=== PATIENT | female | born 1995 | race Caucasian/White ===

== ENCOUNTER 2018-10-17 16:28 | Inpatient (IN) | payer OTHER, SELFPAY ==
[2018-10-17 16:29] VITALS: BP 159/100; PULSE 104; RESP 18; TEMP 36.6; O2SAT 98; BMI 23.2
[2018-10-17 16:37] VITALS: RESP 16
--- NOTE | 2018-10-17 16:45 | ED.VISSUMM ---
- ER Visit Summary Date of Service: 10/17/18 Chief Complaint: Miscarriage History of Present Illness: The patient is a [address] Naidu. 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 She reports her last menstrual. Was 5 to 6 weeks ago. States that she has heavy bleeding that began just prior to coming to the emergency department. She reports that she has a sac in her vagina. She denies any abdominal pain. She is unsure of her blood type. Physical Examination: Vitals: Stable. Afebrile. General: Well-nourished and well-developed. Head: Normocephalic atraumatic. Neck: Supple, no lymphadenopathy. No JVD. Nontender. Cardiovascular: Regular rate and rhythm. No murmurs. Respiratory: No respiratory distress. Clear to auscultation bilaterally. Abdominal: Soft, nontender, nondistended, normal bowel sounds. No guarding, rebound, or peritoneal signs. : Fluid sac at the introitus. Back: Nontender. Extremities: Nontender, no edema. Skin: Normal color, no rash. Neurologic: Alert and oriented ?3. Cranial nerves II through XII are intact. Normal strength and sensation. Psych: Normal affect. Test Results: Blood type is B+. Quantitative hCG is 11,315. Emergency Department Course and Treatment: Patient is resting comfortably. She refused pain or nausea medications. On exam I did attempt to lift up the fluid sac that was in the introitus to see if there is any tissue beneath this and it ruptured. Speculum was then inserted and there were membranes in the vaginal vault with mild bleeding. Treatment Plan: The patient was discussed with Dr. Tye Cavanaugh who is seen her in the emergency department and feels that she is approximately 20 weeks is going to take her over to labor and delivery for further treatment. Disposition: Admitted in stable condition. Impression: 1. Vaginal bleeding. 2. Second trimester . This note was generated with Speakapation software. It may contain incorrect words, spelling, and punctuation that were not noted in review of the chart prior to signing ED Disposition - Plan for ED Patient: Disposition: [facility]
--- NOTE | 2018-10-17 17:45 | ED.RN ---
dr. novak made aware of pt hcg.
[2018-10-17 17:48] LABS: hCG Titer Quant., Serum 11315 mIU/mL (1-3)
--- NOTE | 2018-10-17 18:49 | ED.RN ---
PT TRANSPORTED TO [facility] BY OB RN AND DR. MARIA. PT SKIN P/W/D, RESP EVEN AND UNLABORED, PT A&O X 3, NO DISTRESS NOTED.
[2018-10-17 18:57] VITALS: RESP 18
[2018-10-17 19:55] VITALS: BMI 23.9
--- NOTE | 2018-10-17 20:03 | HP.PCM_ITS ---
- Problem List (1) demise before 20 weeks with retention of fetus Status: Acute History Date of Admission: 10/17/18 Final DEVIKA: 04/07/19 - based on ultrasound today Final DEVIKA Source: US <20 weeks Gestational age: 15 Weeks and 4 Days History of this : This is a 23 year-old, , at 15w3d weeks gestational age based on ultrasound at bedside today. Fundal height is consistent with 18 to 20 weeks. Patient thought she had a period a month ago and thought she was only 5 to 6 weeks along at most and thought she may be miscarrying. She presented to the ER with bleeding and upon examination by the ER physician the amniotic sac was seen bulging at the introitus and it ruptured with examination. Allergies No Known Allergies Allergy (Verified 10/17/18 19:45) Home Medications: Home Medications NK 10/17/18 Smoking Status: Never smoker Alcohol: None Number of Fetus(es): 1 NST - FHR Rate Baby A Baseline: 0 History Past Pregnancies: Past Pregnancies Delivery Date Name GA/Weeks Outcome Route Weight Infant Gender Labor Length Anesthesia Delivery Location Provider FOB Labs: Mom's Labs & Results 10/17/18 10/17/18 10/17/18 16:50 16:50 16:50 WBC RBC Hgb Hct MCV MCH MCHC RDW Std Deviation RDW Coeff of Costa Plt Count MPV Immature Gran % (Auto) Neut % (Auto) Lymph % (Auto) Hunt % (Auto) Eos % (Auto) Baso % (Auto) Absolute Neuts (auto) Absolute Lymphs (auto) Nucleated RBC % Kleihauer-Betke F Hgb Hemoglobin A1c TSH HCG, Quant 21979 H Miscellaneous Test Blood Type TNP B POSITIVE Antibody Screen 10/17/18 10/17/18 10/17/18 19:50 19:50 19:50 WBC 11.8 H RBC 4.64 Hgb 14.6 Hct 41.8 MCV 90.1 MCH 31.5 MCHC 34.9 RDW Std Deviation 42.4 RDW Coeff of Costa 12.8 Plt Count 210 MPV 9.8 Immature Gran % (Auto) 0.300 Neut % (Auto) 83.5 H Lymph % (Auto) 10.7 L Hunt % (Auto) 5.1 Eos % (Auto) 0.1 Baso % (Auto) 0.3 Absolute Neuts (auto) 9.8 H Absolute Lymphs (auto) 1.26 Nucleated RBC % 0 Kleihauer-Betke F Hgb Hemoglobin A1c 4.4 TSH 0.89 HCG, Quant Miscellaneous Test Blood Type Antibody Screen 10/17/18 10/17/18 10/17/18 19:50 19:50 19:50 WBC RBC Hgb Hct MCV MCH MCHC RDW Std Deviation RDW Coeff of Costa Plt Count MPV Immature Gran % (Auto) Neut % (Auto) Lymph % (Auto) Hunt % (Auto) Eos % (Auto) Baso % (Auto) Absolute Neuts (auto) Absolute Lymphs (auto) Nucleated RBC % Kleihauer-Betke F Hgb Pending Hemoglobin A1c TSH HCG, Quant Miscellaneous Test Pending Blood Type B POSITIVE Antibody Screen NEGATIVE Course Did the patient receive No care? Labs HIV/AIDS Not done Other Lab Procedures/Results/ labs drawn on admission, has not had any Comments: care Current Obstetrical History Gestational Diabetes No Incompetent Cervix No Infertility No IUGR No Macrosomia No Hypertension/Pre-eclampsia No Placenta Previa/Abruption No PTL/PROM No Uterine anomaly No Oligohydramnios No Polyhydramnios No Multiple gestation No Past Medical History Asthma No Diabetes No Hypertension No Heart disease No Mitral valve prolapse No Neurologic/Seizure disorder/ No Migraines Kidney disease No Liver disease No Varicosities No Clotting disorders/Hx of DVT No Thyroid Dysfunction No Other medical diseases No Psychiatric disorders No Major trauma No Abnormal PAP smear No Sleep apnea No Mammogram in the last 2 years No Social History Marital Status: Alleged father Almas Hx Smoking No Smoking Status Never smoker How long have you used pt denies substances (years)? Expected Infant Delivery Method: Spontaneous Vaginal Review of Systems Constitutional: Denies: Fever, Malaise Eyes: Denies: Blurred vision, Vision Change HEENT: Denies: Head Aches, Visual Changes Cardiovascular: Denies: Chest Pain, Palpitations Respiratory: Denies: Cough, Shortness of Breath, Wheezing Gastrointestinal: Denies: Abdominal Pain, Diarrhea, Nausea, Vomiting Genitourinary: Denies: Dysuria, Hematuria Musculoskeletal: Denies: Joint Pain, Muscle pain Skin: Denies: Lesions, Rash Neurological: Denies: Blurred vision, Focal weakness, Headaches Psychiatric: Denies: Anxiety, Depression Endocrine: Denies: Heat/ Cold Intolerance Hematologic/ Lymphatic: Denies: Easy Bruising, Easy Bleeding Physical Exam Vitals: Vital Signs Temp Pulse Resp BP Pulse Ox 98 F 104 H 18 159/100 H 98 10/17/18 16:29 10/17/18 16:29 10/17/18 18:57 10/17/18 16:29 10/17/18 16:29 General: Alert, Cooperative, No apparent distress HEENT: Atraumatic, Normocephalic. Negative for: Thyromegaly, Lymphadenopathy Cardiovascular: Regular rate Lungs: Normal air movement Abdomen: Soft, Non Tender, Gravid Neurological: Deep Tendon Reflexes 2+/4 and Symmetrical, Neuro grossly intact. 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 Negative for: Vulvar lesions Estimated gestational size: Appropriate for gestational size Presentation: Cephalic Assessment/Plan All Active Problems demise before 20 weeks with retention of fetus (Acute) This is a 23 year-old, @ 15w3d weeks gestational age presents with demise and PPROM.. Admitted and plan induction of labor for demise. Hemoglobin A1c TSH [facility] sent for analysis and recommend antiphospholipid antibody panel. Patient declined genetic testing.
[2018-10-17 20:18] LABS: Absolute Lymphocyte Count 1.26 X10^3/uL (0.83-4.51); Absolute Neutrophil Count 9.8 X10^3/uL (2.0-7.7); Basophil# 0.03 X10^3/uL; Basophil% 0.3 % (0-1); Eosinophil# 0.01 X10^3/uL; Eosinophils% 0.1 % (0-5); Hematocrit 41.8 % (37-47); Hemoglobin 14.6 g/dL (12.0-15.0); Lymphocyte # 1.26 X10^3/ul (4.0); Lymphocyte % 10.7 % (19-41); Mean Corp Hgb Conc 34.9 g/dL (32-36); Mean Corpuscular Hgb 31.5 pg (27.0-32.0); Mean Corpuscular Volume 90.1 fL (81-99); Mean Platelet Vol. 9.8 fl (6.2-12.0); Monocyte% 5.1 % (0-10); NRBC Flagged by Analyzer 0 % (0-5); Neutrophil # 9.81 X10^3/uL (2.7-7.7); Neutrophil % 83.5 % (47-70); Platelet Count 210 K/mm3 (150-450); RBC Distribution Width CV 12.8 % (11.6-14.6); RBC Distribution Width SD 42.4 fl (35.1-43.9); Red Blood Count 4.64 M/mm3 (4.2-5.4); White Blood Count 11.8 K/mm3 (4.4-11.0)
[2018-10-17] MEDS: miSOPROStol 200 MCG Tablet 600 MCG VAGINAL (20:35)
[2018-10-17 20:40] LABS: Thyroid Stim Hormone (TSH) 0.89 uIU/mL (0.358-3.74)
[2018-10-17 20:52] LABS: Hemoglobin A1c 4.4 % (4.2-6.3)
[2018-10-18] MEDS: Lactated Ringers 1,000 ML 999 ML IV (00:05)
[2018-10-18] MEDS: miSOPROStol 200 MCG Tablet 1000 MCG RECTAL (01:01)
[2018-10-18] MEDS: Oxytocin 30 units/NS 500 ml 30 UNITS/500 ML IV.SOLN 334 UNITS IV (01:02)
--- NOTE | 2018-10-18 02:18 | OP.PCM_ITS ---
Problem List (1) demise before 20 weeks with retention of fetus Status: Acute Report of Operation Date of Procedure: 10/18/18 Pre-Operative Diagnosis: retained POC Post-Operative Diagnosis: saME Surgery/Procedure Performed:: Dilation and curettage for retained products Description of Surgical Findings:: 12 cm uterus, sharp curettage performed to remove products and bedside ul trasound revealed thin lining with no retained products at the end of the procedure Type of Anesthesia:: MAC Special Medications: Cytotec and Pitocin and Ancef Specimen's removed: Products of conception Drains: none Estimated Blood Loss (mL): 500 total Fluids Replaced: crystalloid Description of Procedure: Patient was taken the operating room and placed in the dorsolithotomy position and prepped and draped in normal sterile fashion. Anterior lip of the cervix was grasped with a ring forcep and uterine sound inserted to 12 cm. A suction machine was unable to have the correct instrumentation for use during the initi al portion of the procedure and therefore sharp curettage was performed and tissue removed. Bedside ultrasound was performed and no further retained products were seen and bleeding was minimal. All instruments were removed from the vagina no suction was required. Patient was taken to recovery in stable condition Grafts/Implants Used: none - Complications none - Admit VTE Documentation VTE Present on Admission: No VTE Mechan Device Prophylaxis: SCD's Vaginal Delivery Maternal Presentation: Medically Indicated Induction iol demise 15 weeks with cytotec Method of Induction: Cytotec Medical Reason for Induction: Premature Rupture of Membranes, - - suspected demise prior to delivery Final DEVIKA: 04/07/19 Gestational age: 15 Weeks and 4 Days Date of Procedure: 10/17/18 Pre-Operative Diagnosis: pprom demise Post-Operative Diagnosis: same and reatined POC Surgery/ Procedure Performed: Spontaneous Vaginal Delivery Type of Anesthesia: None Description of Procedure: Patient states she felt some vaginal pressure and spontaneous delivery and therefore physician was called to evaluate at bedside. Upon evaluation fetus had completely delivered and was examined and noted to have low set ears with suspected genetic abnormality but no other gross abnormalities were seen. Fetus was male. Pelvic exam and massage produced spontaneous delivery of most of the placenta however some retained products were suspected and due to patient discomfort she was unable to be examined and placental fragments unable to be removed. Bedside ultrasound confirmed some retained products of conception. It was recommended to proceed with a D&C in the operating room. Placental Delivery Description: Spontaneous, Retained Placenta Disposition: [facility] Cord Entanglement: None Estimated Blood Loss: 500 Infant A gender: Male Episiotomy Description: None Laceration: None Medications given after delivery: IV Pitocin, - - Cytotec Complications: - - Retained products of conception Multi Select Codes - Urinary/Genital Urinary/Genital CPT Codes: Other Procedure See Report - 77537 IOL under 22 week, w/wo d and c
--- NOTE | 2018-10-18 02:28 | DCINST_ITS ---
Discharge Diet: No Restrictions Discharge Activity: Return to Normal Activity, May not drive while taking narcotic pain medications., May Shower May resume sexual activity in: 4-6 weeks Call your doctor if your incision/area has: Continuous Slow Oozing, Sudden Increased Bleeding, Increased Pain/ Swelling, Increased Redness, Foul Smelling Discharge Additional Instructions: If you experience any of the following, contact your healthcare provider. * Bleeding that soaks a pad every hour for 2 hours * Fever 100.4 or higher * Unrelieved incision or abdominal pain * Swelling, redness, discharge or bleeding from your incision or episiotomy site * Your incision begins to separate * Problems urinating (including inability to urinate or burning while urinating). * Visual changes * Severe headache * Flu-like symptoms * Pain or redness in one of both of your breasts * Pain, warmth, tenderness or swelling in your legs, especially the calf area * Frequent nausea and vomiting * Symptoms of depression or anxiety If you experience any of the following, call 911 or go to the nearest Emergency Room. * Chest pain * Problems breathing * Seizure activity * Partial or complete paralysis of a body part, slurred speech, weakness or drooping of the face, or a sudden inability to walk or hold your balance Allergies/Adverse Reactions: Allergies No Known Allergies Allergy (Verified 10/17/18 19:45) Medications to take at Discharge NK 10/17/18 Please Follow Up With: Amanda Funk MD - [phone] When: Call to make an appointment with your doctor in 6 weeks. If you had elevated Blood pressure or 4th degree laceration you will need to be seen in 2 weeks. Primary Care Physician: NOT,DEFINED [NON-STAFF] - Test Results: Test results from this visit will be discussed in further detail at your follow- up appointment, if applicable.
--- NOTE | 2018-10-18 02:28 | PCM.DCVAG ---
Discharge Diet: No Restrictions Discharge Activity: Return to Normal Activity, May not drive while taking narcotic pain medications., May Shower May resume sexual activity in: 4-6 weeks Call your doctor if your incision/area has: Continuous Slow Oozing, Sudden Increased Bleeding, Increased Pain/ Swelling, Increased Redness, Foul Smelling Discharge Additional Instructions: If you experience any of the following, contact your healthcare provider. Bleeding that soaks a pad every hour for 2 hours Fever 100.4 or higher Unrelieved incision or abdominal pain Swelling, redness, discharge or bleeding from your incision or episiotomy site Your incision begins to separate Problems urinating (including inability to urinate or burning while urinating). Visual changes Severe headache Flu-like symptoms Pain or redness in one of both of your breasts Pain, warmth, tenderness or swelling in your legs, especially the calf area Frequent nausea and vomiting Symptoms of depression or anxiety If you experience any of the following, call 911 or go to the nearest Emergency Room. Chest pain Problems breathing Seizure activity Partial or complete paralysis of a body part, slurred speech, weakness or drooping of the face, or a sudden inability to walk or hold your balance Allergies/Adverse Reactions: Allergies No Known Allergies Allergy (Verified 10/17/18 19:45) Medications to take at Discharge NK 10/17/18 Please Follow Up With: Amanda Funk MD - [phone] When: Call to make an appointment with your doctor in 6 weeks. If you had elevated Blood pressure or 4th degree laceration you will need to be seen in 2 weeks. Primary Care Physician: NOT,DEFINED [NON-STAFF] - Test Results: Test results from this visit will be discussed in further detail at your follow-up appointment, if applicable.
--- NOTE | 2018-10-18 02:29 | PLAC_PTH ---
PATIENT: BRIANA QUIROZ LOC: [facility] U#:[id number] AGE/SX: 23/F ROOM: WP021 RE10/17/[address]: Dr. Amanda Funk MD : 1995 BED: 1 DIS: 10/18/2018 SPEC #: [id number] RECD: 10/18/18 07:55 STATUS: JANETTE REQ #: [id number] COLT: 10/18/18 02:[address]: Amanda Funk DEPT: SURGICAL PATHOLOGY RECD BY: Adrian Solano ENTERED: 10/20/18 13:02 SP TYPE: PLACENTA OTHR DR: No Primary Care Phys Tissues: A - Placenta, NOS B - Fetus, NOS Procedures: Surgery Specimen Level V Comments: Patients name initially Briana Quiroz and then changed by registration to Briana Jonah to match her state ID per registration Mary 10/20/18 1545 clc HEADER OPERATION: Labor and delivery PRE-OP DIAGNOSIS: Vaginal delivery, demise TISSUE SUBMITTED: A. Placenta, B. demise, 15-16 weeks MICROSCOPIC DIAGNOSIS A. Placenta, immature placenta (50 grams): Placental disc - immature villi, increased intraparenchymal microcalcifications , fibrin plaques, focal Jermoy-Leonel change and mild acute and chronic deciduitis. Umbilical cord - trivascular with no inflammation. Membranes - focal microcalcification. B. Fetus (15-16 week gestation): Internal organs with autolytic changes. AM:samy 10/21/18 COMMENT This case was reviewed and diagnosis discussed with Dr. Funk on 10/29/18 at 10:00 a.m. MICROSCOPIC DESCRIPTION Slides are reviewed. GROSS DESCRIPTION A. Received is one container labeled with the patient's name and not further designated. The specimen consists of a small placenta with membrane and detached pieces of umbilical cord. The pieces of umbilical cord measures 2 and 3 cm in length and 0.5 cm in diameter. A portion of membrane is attached to one of the pieces of the nuchal cord and is portillo-green and is unremarkable. A Small portion of membrane is also attached to the placenta. The placenta is markedly disrupted and triangular in shape and measures 9 x 8 x 2 cm and weighs 50 grams. It is portillo and unremarkable. A focal area of blood clot is noted on the surface. Obvious attachment of the nuchal cord could not be identified. Peripheral portion of the placenta shows presence of blood clot. Sections do not reveal any mass lesion. Respiratory Coordinator sections are submitted in 5 cassettes as follows: 1 - membrane; 2 - nuchal cord to be sectioned at the time of embedding; 3 - 5 - placenta. Cassette 3 contains a separate blood clot and also blood clot area and portion of the placenta. B. Received is one container labeled with the patient's name and not further designated. The specimen consists of male fetus markedly macerated weighing 79.6 grams. The fetus measures 12.5 from crown to rump and 18 cm from crown to heel. A 6 cm segment of nuchal cord is also attached to the fetus. No external anomalies are noted. Anus appeared patent. The abdominal organs appear to be well partitioned. The diaphragm appearing intact. Most of the abdominal organs are markedly macerated. The kidneys appear to be well partitioned in the abdomen. Respiratory Coordinator sections are submitted in 4 cassettes as follows: 1 - umbilical cord. 2 - Thoracic organs. 3&4 - Abdominal organs. 4 contains the spleen and kidney. /EUGENE:samy 10/20/18 TC: 2 CPT: 24791 x2
[2018-10-18 03:45] VITALS: BP 116/66; PULSE 93; RESP 16; TEMP 37.3
[2018-10-18] MEDS: 0.9% Saline Lock 10 ML Syringe IV (03:45)
--- NOTE | 2018-10-18 05:25 | NURSING ---
0423 total EBL charted under OP Record
--- NOTE | 2018-10-18 05:30 | NURSING ---
0530 Heide does not want to hold baby and states measurements can be done outside of the room. Does not wish for baby to be brought back to room. Would like baby to be disposed of by hospital lab. Form will need signed since Heide and have been sleeping.
[2018-10-18 07:54] LABS: Pathology Specimen OB SEE PATHOLOGY REPORT
[2018-10-18 08:59] VITALS: BP 116/70; PULSE 75; RESP 16; TEMP 36.7; O2SAT 99
--- NOTE | 2018-10-18 10:20 | NURSING ---
education complete. Patient and verbalize understanding. and follow up telephone number provided to patient.
[2018-10-18 10:47] LABS: Kleihauer-Betke Negative
== END 2018-10-18 10:30 | disposition home or self-care (01) | DRG 770 ==
LOC: ED 17:39 → WP 19:02
PROVIDERS: Admitting Provider Obstetrics & Gynecology; Emergency Provider Emergency Medicine; Referring Provider Obstetrics & Gynecology; Visit Provider Obstetrics & Gynecology
DX: O02.1 Missed abortion (principal); O73.0 Retained placenta without hemorrhage; Z3A.15 15 weeks gestation of pregnancy
CPT/HCPCS: 36415; 76815; 83036; 84443; 84702; 85025; 85460; 86850; 86900; 86901; 88307; 88309; 99218; 99281; J7120; A4216; G0378

== ENCOUNTER → 2019-04-01 12:16 | Outpatient (CLI) | payer OTHER, SELFPAY ==
[2019-04-01 11:39] VITALS: BMI 23.9
[2019-04-01 13:00] LABS: Absolute Lymphocyte Count 1.34 X10^3/uL (0.83-4.51); Absolute Neutrophil Count 7.8 X10^3/uL (2.0-7.7); Basophil# 0.03 X10^3/uL; Basophil% 0.3 % (0-1); Eosinophil# 0.06 X10^3/uL; Eosinophils% 0.6 % (0-5); Hemoglobin 14.4 g/dL (12.0-15.0); Lymphocyte # 1.34 X10^3/ul (4.0); Lymphocyte % 13.5 % (19-41); Mean Corp Hgb Conc 34.3 g/dL (32-36); Mean Corpuscular Hgb 30.8 pg (27.0-32.0); Mean Corpuscular Volume 89.9 fL (81-99); Mean Platelet Vol. 10.1 fl (6.2-12.0); Monocyte# 0.67 X10^3/uL; Monocyte% 6.8 % (0-10); NRBC Flagged by Analyzer 0 % (0-5); Neutrophil % 78.6 % (47-70); Platelet Count 214 K/mm3 (150-450); RBC Distribution Width CV 13.3 % (11.6-14.6); RBC Distribution Width SD 43.9 fl (35.1-43.9); Red Blood Count 4.67 M/mm3 (4.2-5.4); White Blood Count 9.9 K/mm3 (4.4-11.0)
[2019-04-01 13:41] LABS: Rubella IgG 82.8 IU/mL
[2019-04-06 17:54] LABS: HPV Reflexed? NOT INDICATED
== END ==
PROVIDERS: PCP Family Medicine; Referring Provider Obstetrics & Gynecology; Visit Provider Obstetrics & Gynecology
DX: Z34.90 Encounter for supervision of normal pregnancy, unspecified, unspecified trimester (principal)
CPT/HCPCS: 36415; 85025; 86762; 86850; 86900; 86901; 87086; 87088; 88175; G0145

== ENCOUNTER → 2019-05-19 13:08 | Outpatient (CLI) | payer OTHER, SELFPAY ==
[2019-04-17 08:57] VITALS: BMI 23.9
[2019-05-15 08:50] VITALS: BMI 23.9
--- NOTE | 2019-05-19 13:12 | US_ITS ---
STUDY: SECOND AND THIRD TRIMESTER OBSTETRICAL ULTRASOUND - LIMITED REASON FOR EXAM: Female, 24 years old CERVICAL LENGTH CHECK PER JERRI AT DR. TODD OFFICE -- HX OF D and amp;C DUE TO MISCARRIAGE 10/18/18 LMP: February 07, 2019. PRIOR ULTRASOUND: None. TECHNIQUE: Transvaginal TECHNICAL QUALITY: Adequate. FINDINGS: There is a single intrauterine fetus. The fetus is in a breech presentation. There is demonstrated cardiac activity with a heart rate of 157 bpm. There is a normal amniotic fluid volume. The largest amniotic fluid pocket measures 2.8 cm x 2.1 cm. The placenta is posterior and low lying but not previa in location. The tip of the placenta is 0.85 cm from the cervical os. A placental silverman is seen along its inferior edge. There are Grade 1 placental changes. The cervix measures 4.5 cm in length. BIOMETRY: BPD: 2.88 cm: 15 weeks, 1 days HC: 10.75 cm: 15 weeks, 0 days AC: 8.54 cm: 14 weeks, 5 days FL: 1.55 cm: 14 weeks, 4 days Age by LMP: 14 weeks, 3 days. DEVIKA by LMP: November 14, 2019. age by current US: 14 weeks, 5 days. DEVIKA by current US: November 12, 2019. Estimated weight: 106 grams, +/- 16 grams, 67 percentile. US/OB Limited With Biometrics IMPRESSION: Single live uterine gestation with a mean gestational age of 14 weeks and 5 days. Low-lying posterior placenta. The tip of the placenta is at 0.85 cm proximal to the cervical os. Electronically Signed: Simon Dan, at 15:00 EDT , Service support ,
== END ==
PROVIDERS: PCP Family Medicine; Referring Provider Obstetrics & Gynecology; Visit Provider Obstetrics & Gynecology
DX: O09.90 Supervision of high risk pregnancy, unspecified, unspecified trimester (principal)
CPT/HCPCS: 76816

== ENCOUNTER → 2019-06-23 08:13 | Outpatient (CLI) | payer OTHER, SELFPAY ==
[2019-05-15 08:50] VITALS: BMI 23.9
--- NOTE | 2019-06-23 08:17 | US_ITS ---
STUDY: SECOND AND THIRD TRIMESTER OBSTETRICAL ULTRASOUND REASON FOR EXAM: Female, 24 years old ANATOMY -- HX OF LOWLYING PLACENTA SEEN ON 05/19/19 US -- HX OF D and amp;C DUE TO MISCARRIAGE 10/18/18 LMP: February 07, 2019. TECHNIQUE: Transabdominal TECHNICAL QUALITY: Adequate. PRIOR ULTRASOUND: Comparison is made with prior study dated May 19, 2019. FINDINGS: There is a single intrauterine fetus. The fetus is in a cephalic presentation. There is demonstrated cardiac activity with a heart rate of 143 bpm. There is a normal amniotic fluid volume. The largest amniotic fluid pocket measures 3.2 cm x 5.5 cm. The amniotic fluid index (JOSE) is 10.62 cm. The placenta is posterior in location and is not low lying. There are Grade 1 placental changes. The cervix measures 3.1 cm in length. Findings suggestive of a clot within the cervix. The adnexal regions are not visualized. BIOMETRY: BPD: 4.64 cm: 20 weeks, 0 days HC: 17.66 cm: 20 weeks, 1 days AC: 15.27 cm: 20 weeks, 3 days FL: 3.12 cm: 19 weeks, 4 days CI: 76.2% FL/BPD: 67.3% FL/HC: FL/AC: 20.4% HC/AC: 1.16 age by current US: 20 weeks, 1 days. DEVIKA by current US: January 09, 2020. Estimated weight: 333 grams, +/- 49 grams, 87 %. age by prior US: 19 weeks, 5 days. DEVIKA by prior US: November 12, 2019. Age by LMP: 19 weeks, 3 days. DEVIKA by LMP: November 14, 2019. ANATOMY: Gender: Male Cranium: Normal lateral ventricles. Normal choroid plexus. Normal cerebellum. Normal cisterna magna. Normal face, nose and lips. Chest: Normal 4-chamber heart. Abdomen/Pelvis: Normal diaphragm. Normal stomach. Normal abdominal wall. Normal cord insertion. Normal 3 vessel cord. Normal kidneys. Normal bladder. Spine: Normal cervical spine. Normal thoracic spine. Normal lumbar spine. Normal sacrum. Extremities: Normal bilateral upper extremities. Normal bilateral lower extremities. US/OB Anatomy Scan IMPRESSION: Single live intrauterine gestation with a mean gestational age of 19 weeks and 5 days. The measurements obtained today fall within the normal expected range. Electronically Signed: Simon Dan, at 13:36 EDT , Service support ,
== END ==
PROVIDERS: PCP Family Medicine; Referring Provider Obstetrics & Gynecology; Visit Provider Obstetrics & Gynecology
DX: O09.90 Supervision of high risk pregnancy, unspecified, unspecified trimester (principal); O44.42 Low lying placenta NOS or without hemorrhage, second trimester; Z3A.00 Weeks of gestation of pregnancy not specified
CPT/HCPCS: 76805

== ENCOUNTER 2019-07-14 11:55 | Inpatient (IN) | payer SELFPAY ==
[2019-07-10 08:07] VITALS: BMI 23.9
[2019-07-14] VITALS (42 sets, daily range): BP systolic 94–123; BP diastolic 54–71; PULSE 86–105; RESP 16–18; TEMP 36.6–37.4; O2SAT 97–100; BMI 25.0
--- NOTE | 2019-07-14 10:56 | US_ITS ---
STUDY: SECOND AND THIRD TRIMESTER OBSTETRICAL ULTRASOUND - LIMITED REASON FOR EXAM: Female, 24 years old SPOTTING SINCE SATURDAY MORNING LMP: PRIOR ULTRASOUND: None. TECHNIQUE: Transabdominal and Transvaginal TECHNICAL QUALITY: Adequate. FINDINGS: There is a single intrauterine fetus. The fetus is in a breech presentation. There is demonstrated cardiac activity with a heart rate of 161 bpm. There is a normal amniotic fluid volume. The largest amniotic fluid pocket measures 6.7 cm. The amniotic fluid index (JOSE) is 10 cm. The placenta is posterior and low lying but not previa in location. There are Grade 0 placental changes. The cervix measures 2 cm in length. The cervix is dehiscent. Diameter of the cervical os measures 2.6 cm. BIOMETRY: Age by LMP: 22 weeks, 3 days. DEVIKA by LMP: 11/14/2019. age by prior US: 23 weeks, 1 days. DEVIKA by prior US: 11/09/2019. US/OB Limited (No Biometrics) IMPRESSION: The fetus is in a breech presentation. There is demonstrated cardiac activity with a heart rate of 161 bpm. There is a normal amniotic fluid volume. The largest amniotic fluid pocket measures 6.7 cm. The amniotic fluid index (JOSE) is 10 cm. The placenta is posterior and low lying but not previa in location. There are Grade 0 placental changes. The cervix measures 2 cm in length. The cervix is dehiscent. Diameter of the cervical os measures 2.6 cm. Electronically Signed: Fisher Nikolay, at 12:27 EDT Tel , Service support ,
[2019-07-14] MEDS: Lactated Ringers 1,000 ML 999 ML IV ×2 (12:00→12:10)
[2019-07-14] MEDS: Magnesium Sulfate 4gm/100mL 4 GM/100 ML IV.SOLN. IV (12:10)
[2019-07-14] MEDS: Magnesium Sulfate 4gm/100mL 2 GM/50 ML IV.SOLN. IV (12:25)
[2019-07-14 12:34] LABS: Bacteria 0 SEEN /hpf (None Seen); Mucous, Urine 0 SEEN /hpf (<or=2+); Red Blood Cells-Urine 0 SEEN /hpf (0-5); Squamous Epithelial Cells - UA 0 SEEN /hpf (5-10); White Blood Cells 0 SEEN /hpf (0-5)
[2019-07-14 12:44] LABS: Color, Urine Yellow (Yellow); Glucose, Dipstick Normal (Normal); Ketone-Dipstick Negative (Negative); Leukocyte Esterase-Dipstick Negative /ul (Negative); Nitrite-Dipstick Negative (Negative); Occult Blood-Urine Negative /ul (Negative); Protein-Dipstick Negative (Negative); Urine Bilirubin Dipstick Negative (Negative); Urine Clarity Clear (Clear); Urine Urobilinogen Normal (Normal)
[2019-07-14 12:45] LABS: Absolute Lymphocyte Count 1.15 X10^3/uL (0.83-4.51); Absolute Neutrophil Count 10.9 X10^3/uL (2.0-7.7); Basophil# 0.02 X10^3/uL; Basophil% 0.2 % (0-1); Eosinophil# 0.04 X10^3/uL; Eosinophils% 0.3 % (0-5); Hematocrit 39.9 % (37-47); Hemoglobin 13.6 g/dL (12.0-15.0); Lymphocyte # 1.15 X10^3/ul (4.0); Mean Corp Hgb Conc 34.1 g/dL (32-36); Mean Corpuscular Hgb 31.1 pg (27.0-32.0); Mean Corpuscular Volume 91.1 fL (81-99); Mean Platelet Vol. 9.5 fl (6.2-12.0); Monocyte# 0.68 X10^3/uL; Monocyte% 5.3 % (0-10); NRBC Flagged by Analyzer 0 % (0-5); Neutrophil # 10.85 X10^3/uL (2.7-7.7); Neutrophil % 84.7 % (47-70); Platelet Count 246 K/mm3 (150-450); RBC Distribution Width CV 13.8 % (11.6-14.6); RBC Distribution Width SD 45.9 fl (35.1-43.9); Red Blood Count 4.38 M/mm3 (4.2-5.4); White Blood Count 12.8 K/mm3 (4.4-11.0)
--- NOTE | 2019-07-14 12:59 | OB.TRI.HP_ITS ---
- Problem List (1) Cervical insufficiency during in second trimester, antepartum Status: Acute (2) Status: Acute Qualifiers: Weeks of gestation: 21 weeks Qualified Code(s): Z3A.21 - 21 weeks gestation of Comment: nipt, carrier, and ntd screening declined. (3) Supervision of high risk , antepartum Status: Acute Comment: PRR (declined STD testing) DEVIKA 11/14/19 Jose (4) demise before 20 weeks with retention of fetus Status: Acute Comment: cervical length screening at 16 weeks. declines MFM consult. APL testing negative. declined additional ultrasounds. History of Present Illness Date of Service: 07/14/19 Was patient seen by the physician?: Yes Reason For Visit: BLEEDING Final DEVIKA: 11/14/19 Final DEVIKA Source: US <20 weeks Gestational age: 22 Weeks and 3 Days History of Present Illness: 24-year-old G2, P0 at 22 weeks 3 days presents with vaginal bleeding x3 days. She was found to have cervical dilation with prolapsing membranes into the vagina but intact gestational sac. She denies any contractions or abdominal pain. She denies any recent infection symptoms. She does feel some vaginal pressure. Allergies No Known Allergies Allergy (Verified 07/14/19 10:15) - Pertinent Past Medical History Medical History: Past Medical History (Last Reviewed 07/10/19 @ 08:02 by Flores Winter) demise demise at 15w Laboratory Studies: Laboratory Tests 07/14/19 07/14/19 07/14/19 Range/Units 12:00 12:00 12:00 WBC 12.8 H (4.4-11.0) K/mm3 RBC 4.38 (4.2-5.4) M/mm3 Hgb 13.6 (12.0-15.0) g/dL Hct 39.9 (37-47) % MCV 91.1 (81-99) fL MCH 31.1 (27.0-32.0) pg MCHC 34.1 (32-36) g/dL RDW Std Deviation 45.9 H (35.1-43.9) fl RDW Coeff of Costa 13.8 (11.6-14.6) % Plt Count 246 (150-450) K/mm3 MPV 9.5 (6.2-12.0) fl Immature Gran % (Auto) 0.500 (0.0-0.9) % Neut % (Auto) 84.7 H (47-70) % Lymph % (Auto) 9.0 L (19-41) % [place] % (Auto) 5.3 (0-10) % Eos % (Auto) 0.3 (0-5) % Baso % (Auto) 0.2 (0-1) % Absolute Neuts (auto) 10.9 H (2.0-7.7) X10^3/uL Absolute Lymphs (auto) 1.15 (0.83-4.51) X10^3/uL Nucleated RBC % 0 (0-5) % Urine Color Yellow (Yellow) Urine Clarity Clear (Clear) Urine pH 7.0 (5.0 - 8.0) Ur Specific [place] 1.010 (1.002-1.030) Urine Protein Negative (Negative) mg/dl Urine Glucose (UA) Normal (Normal) mg/dl Urine Ketones Negative (Negative) mg/dl Urine Occult Blood Negative (Negative) /ul Urine Nitrite Negative (Negative) Urine Bilirubin Negative (Negative) mg/dL Urine Urobilinogen Normal (Normal) mg/dl Ur Leukocyte Esterase Negative (Negative) /ul Urine RBC 0 SEEN (0-5) /hpf Urine WBC 0 SEEN (0-5) /hpf Ur Squamous Epith Cells 0 SEEN (5-10) /hpf Urine Bacteria 0 SEEN (None Seen) /hpf Urine Mucus 0 SEEN (<or=2+) /hpf Ur Drug Screen Comment Review of Systems Constitutional: Denies: Fever, Malaise Eyes: Denies: Blurred vision, Vision Change HEENT: Denies: Head Aches, Visual Changes Cardiovascular: Denies: Chest Pain, Palpitations Respiratory: Denies: Cough, Shortness of Breath, Wheezing Gastrointestinal: Denies: Abdominal Pain, Diarrhea, Nausea, Vomiting Genitourinary: Denies: Dysuria, Hematuria Gynecological: Reports: Vaginal bleeding Musculoskeletal: Denies: Joint Pain, Muscle pain Skin: Denies: Lesions, Rash Neurological: Denies: Blurred vision, Focal weakness, Headaches Psychiatric: Denies: Anxiety, Depression Endocrine: Denies: Heat/ Cold Intolerance Hematologic/ Lymphatic: Denies: Easy Bruising, Easy Bleeding Physical Exam Vitals: Vital Signs Temp Pulse Resp BP Pulse Ox 98.3 F 100 18 121/59 H 98 07/14/19 12:25 07/14/19 12:57 07/14/19 12:25 07/14/19 12:51 07/14/19 12:57 General: Alert, Cooperative, No apparent distress HEENT: Atraumatic, Normocephalic. Negative for: Thyromegaly, Lymphadenopathy Cardiovascular: Regular rate Lungs: Normal air movement Abdomen: Soft, Gravid, - - Mild tender suprapubic Neurological: Deep Tendon Reflexes 2+/4 and Symmetrical, Neuro grossly intact. 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 Negative for: Vulvar lesions Estimated gestational size: Appropriate for gestational size Presentation: Cephalic Cervix Dilation (cm): 3.5 Station: 2 Effacement (%): 70 NST - FHR Rate Baby A Baseline: 150 Variability:: Moderate Accelerations:: None Decelerations:: None NST Reactive:: Appropriate for gestational age Uterine Activity:: No regular contractions Impression/Plan 24-year-old G2, P0 at 22 weeks and 3 days with cervical insufficiency. Called and discussed case with maternal- medicine and recommend Trendelenburg, ampicillin and azithromycin, magnesium and sulindac. No Celestone indicated at this gestational age yet. No resuscitation encouraged at this gestational age. Monitor for signs or symptoms of infection or labor. Expectant management and if membranes reduce back into the uterus consider cerclage placement at a tertiary care facility. We will hold off on transport at this time.
[2019-07-14] MEDS: Magnesium Sulfate 20 GM/500 ML BAG IV ×2 (13:00→22:06)
[2019-07-14 13:09] LABS: Amphetamine Urine VISTA NEGATIVE (<1000 ng/mL); Barbiturate Urine VISTA NEGATIVE (< 200 ng/mL); Benzodiazepine Urine VISTA NEGATIVE (< 200 ng/mL); Cocaine Urine VISTA NEGATIVE (< 300 ng/mL); Ecstacy Urine VISTA NEGATIVE (< 500 ng/mL); Methadone Urine VISTA NEGATIVE (< 300 ng/mL); PCP Urine VISTA NEGATIVE (< 25 ng/mL); THC Urine VISTA NEGATIVE (< 50 ng/mL); Vista UDS pH Range 6
[2019-07-14 13:44] LABS: HIV - WCH Non-Reactive (Nonreactive); Hepatitis B Surface Antigen Non-Reactive (Nonreactive); Hepatitis C Antibody Non-Reactive (Nonreactive)
[2019-07-14] MEDS: Lactated Ringers 1,000 ML 75 ML IV (14:16)
[2019-07-14] MEDS: Indomethacin 25 MG Capsule PO (15:14)
[2019-07-14] MEDS: Acetaminophen 500 MG Tablet 1000 MG PO ×2 (15:15→20:16)
[2019-07-14] MEDS: Zolpidem Tartrate 5 MG Tablet PO (22:34)
[2019-07-15] VITALS (17 sets, daily range): BP systolic 100–116; BP diastolic 60–72; PULSE 79–165; RESP 16; TEMP 36.3–37.2; O2SAT 98–100
[2019-07-15 01:39] LABS: Absolute Lymphocyte Count 0.63 X10^3/uL (0.83-4.51); Absolute Neutrophil Count 13.4 X10^3/uL (2.0-7.7); Basophil# 0.02 X10^3/uL; Basophil% 0.1 % (0-1); Eosinophil# 0.01 X10^3/uL; Eosinophils% 0.1 % (0-5); Hematocrit 38.2 % (37-47); Hemoglobin 13.1 g/dL (12.0-15.0); Lymphocyte # 0.63 X10^3/ul (4.0); Lymphocyte % 4.2 % (19-41); Mean Corp Hgb Conc 34.3 g/dL (32-36); Mean Corpuscular Hgb 30.9 pg (27.0-32.0); Mean Corpuscular Volume 90.1 fL (81-99); Mean Platelet Vol. 9.4 fl (6.2-12.0); Monocyte# 0.81 X10^3/uL; Monocyte% 5.4 % (0-10); NRBC Flagged by Analyzer 0 % (0-5); Neutrophil # 13.43 X10^3/uL (2.7-7.7); Neutrophil % 89.8 % (47-70); Platelet Count 258 K/mm3 (150-450); RBC Distribution Width CV 13.4 % (11.6-14.6); RBC Distribution Width SD 44.1 fl (35.1-43.9); Red Blood Count 4.24 M/mm3 (4.2-5.4)
[2019-07-15] MEDS: Lactated Ringers 500 ML 999 ML IV (01:40)
[2019-07-15] MEDS: fentaNYL 100 MCG/2 ML Ampul 25 MCG IV ×3 (01:43→02:06)
[2019-07-15] MEDS: 0.9% Saline Lock 10 ML Syringe IV ×3 (01:44→02:17)
[2019-07-15] MEDS: fentaNYL 100 MCG/2 ML Ampul 50 MCG IV (02:16)
[2019-07-15] MEDS: Oxytocin 30 units/NS 500 ml 30 UNITS/500 ML IV.SOLN 334 UNITS IV (02:18)
[2019-07-15 02:50] LABS: Fibrinogen 519 mg/dl (203-444)
--- NOTE | 2019-07-15 02:53 | OP.PCM_ITS ---
Problem List (1) Cervical insufficiency during in second trimester, antepartum Status: Acute (2) Status: Acute Qualifiers: Weeks of gestation: 21 weeks Qualified Code(s): Z3A.21 - 21 weeks gestation of Comment: nipt, carrier, and ntd screening declined. (3) Supervision of high risk , antepartum Status: Acute Comment: PRR (declined STD testing) DEVIKA 11/14/19 Jose (4) demise before 20 weeks with retention of fetus Status: Acute Comment: cervical length screening at 16 weeks. declines MFM consult. APL testing negative. declined additional ultrasounds. Report of Operation Date of Procedure: 07/15/19 Vaginal Delivery Maternal Presentation: Active Labor 24-year-old G2, P0 at 22 weeks 4 days presented with vaginal bleeding and painless cervical dilation. She was noted to have prolapsing membranes and parts through the cervix into the vagina and cervical dilation of 3 to 4 cm. She had a history of a 15-week demise and had a normal cervical length on ultrasound 2 weeks ago. Patient had began bleeding on Saturday and presented for evaluation on Saturday. Patient was placed in Trendelenburg and given Indocin and magnesium sulfate. Patient developed contractions and abdominal pain but remained afebrile. White count increased to 15,000 with a normal fibrinogen level. Patient was examined and noted to have the majority the infant present in the vagina with gestational sac intact and cervix completely dilated. Medical Reason for Induction: - - Cervical insufficiency Amniotic Membrane Rupture Type: Artificial Amniotic Fluid Description: Clear Final DEVIKA: 11/14/19 Gestational age: 22 Weeks and 4 Days Surgery/ Procedure Performed: Spontaneous Vaginal Delivery Type of Anesthesia: Epidural Description of Procedure: Patient was completely dilated and the gestational sac was present in the vagina. Patient began pushing and membranes were ruptured. Both feet were delivered and the was delivered up to the level of the umbilicus. No pulse was felt at the umbilicus at the time of delivery. Arms were swept anteriorly and delivered. There was delayed delivery of the head due to the cer vix decreasing in size and entrapping part of the head. With manual reduction of the cervix and expectant management the rest of the infant delivered without complication. Nuchal cord x1 was noted. Again the was evaluated and no pulse was palpated. Perineum was intact. Placenta delivered with gentle traction on the cord and immediately following was noted to be intact with no gross abnormalities. EBL 200 cc Presentation: Footling Breech Placental Delivery Description: Spontaneous Placenta Disposition: [facility] Cord Vessel Description: 3 Vessels Cord Entanglement: Around neck x 1, loose Estimated Blood Loss: 200 Infant A gender: Male (1 minute): 0 (5 minute): 0 Episiotomy Description: None Laceration: None Medications given after delivery: IV Pitocin Complications: None Multi Select Codes - Urinary/Genital Urinary/Genital CPT Codes: 13361 Vaginal Delivery [facility] pkg - 22 week delivery
--- NOTE | 2019-07-15 03:06 | DCINST_ITS ---
Discharge Diet: No Restrictions Discharge Activity: Return to Normal Activity, May not drive while taking narcotic pain medications., May Shower May resume sexual activity in: 4-6 weeks Call your doctor if your incision/area has: Continuous Slow Oozing, Sudden Increased Bleeding, Increased Pain/ Swelling, Increased Redness, Foul Smelling Discharge Additional Instructions: If you experience any of the following, contact your healthcare provider. * Bleeding that soaks a pad every hour for 2 hours * Fever 100.4 or higher * Unrelieved incision or abdominal pain * Swelling, redness, discharge or bleeding from your incision or episiotomy site * Your incision begins to separate * Problems urinating (including inability to urinate or burning while urinating). * Visual changes * Severe headache * Flu-like symptoms * Pain or redness in one of both of your breasts * Pain, warmth, tenderness or swelling in your legs, especially the calf area * Frequent nausea and vomiting * Symptoms of depression or anxiety If you experience any of the following, call 911 or go to the nearest Emergency Room. * Chest pain * Problems breathing * Seizure activity * Partial or complete paralysis of a body part, slurred speech, weakness or drooping of the face, or a sudden inability to walk or hold your balance Allergies/Adverse Reactions: Allergies No Known Allergies Allergy (Verified 07/14/19 10:15) Medications to take at Discharge Vit No.130/Iron/Folic [ Tablet] 1 tab PO DAILY 07/14/19 Please Follow Up With: Amanda Funk MD - [phone] When: Call to make an appointment with your doctor in 4 weeks Primary Care Physician: Clinton Naidu DO [Primary Care Provider] - Test Results: Test results from this visit will be discussed in further detail at your follow- up appointment, if applicable.
--- NOTE | 2019-07-15 03:06 | PCM.DCVAG ---
Discharge Diet: No Restrictions Discharge Activity: Return to Normal Activity, May not drive while taking narcotic pain medications., May Shower May resume sexual activity in: 4-6 weeks Call your doctor if your incision/area has: Continuous Slow Oozing, Sudden Increased Bleeding, Increased Pain/ Swelling, Increased Redness, Foul Smelling Discharge Additional Instructions: If you experience any of the following, contact your healthcare provider. Bleeding that soaks a pad every hour for 2 hours Fever 100.4 or higher Unrelieved incision or abdominal pain Swelling, redness, discharge or bleeding from your incision or episiotomy site Your incision begins to separate Problems urinating (including inability to urinate or burning while urinating). Visual changes Severe headache Flu-like symptoms Pain or redness in one of both of your breasts Pain, warmth, tenderness or swelling in your legs, especially the calf area Frequent nausea and vomiting Symptoms of depression or anxiety If you experience any of the following, call 911 or go to the nearest Emergency Room. Chest pain Problems breathing Seizure activity Partial or complete paralysis of a body part, slurred speech, weakness or drooping of the face, or a sudden inability to walk or hold your balance Allergies/Adverse Reactions: Allergies No Known Allergies Allergy (Verified 07/14/19 10:15) Medications to take at Discharge Vit No.130/Iron/Folic [ Tablet] 1 tab PO DAILY 07/14/19 Please Follow Up With: Amanda Funk MD - [phone] When: Call to make an appointment with your doctor in 4 weeks Primary Care Physician: Clinton Naidu DO [Primary Care Provider] - Test Results: Test results from this visit will be discussed in further detail at your follow-up appointment, if applicable.
--- NOTE | 2019-07-15 11:05 | CASEMGMT ---
SOCIAL WORK RECEIVED ORDER FOR CONSULT DUE TO 22 WEEK DEMISE. CALL TO NURSE TO DISCUSS STATUS. PER NURSE, SHYANNE, PATIENT WAS OFFERED PASTORAL AND SW SERVICES. PATIENT DECLINED. PATIENT HAS BEEN IN CONTACT WITH [facility] AND HAS SUPPORT FROM FAMILY. WILL REMAIN AVAILABLE IF NEEDED. Natty KRAMER, ADULT PROBATION OFFICER, SALES TRAINEE.
--- NOTE | 2019-07-15 11:07 | NURSING ---
RN spoke with Social Work, informed of patient declining SW assessment and intervention. Pt has sought out her Jones and states has adequate family support.
[2019-07-16 02:20] LABS: Rapid Plasmin Reagin (RPR) NONREACTIVE (NONREACTIVE)
== END 2019-07-15 13:25 | disposition home or self-care (01) | DRG 805 ==
LOC: WP 12:11 → WPOUT 07-15 07:01
PROVIDERS: Admitting Provider Obstetrics & Gynecology; PCP Family Medicine; Referring Provider Obstetrics & Gynecology; Visit Provider Obstetrics & Gynecology
DX: O36.4XX0 Maternal care for intrauterine death, not applicable or unspecified (principal); O34.32 Maternal care for cervical incompetence, second trimester; Z37.1 Single stillbirth; Z3A.22 22 weeks gestation of pregnancy; O69.81X0 Labor and delivery complicated by cord around neck, without compression, not applicable or unspecified; O32.8XX0 Maternal care for other malpresentation of fetus, not applicable or unspecified
CPT/HCPCS: 59025; 59050; 76815; 80307; 81001; 85025; 85384; 86592; 86703; 86803; 86850; 86900; 86901; 87086; 87340; 99218; J7120; A4216; G0378

== ENCOUNTER → 2019-08-17 14:48 | Outpatient (CLI) | payer OTHER, SELFPAY ==
[2019-08-17 14:26] VITALS: BMI 25.0
[2019-08-17 14:57] LABS: Absolute Lymphocyte Count 1.95 X10^3/uL (0.83-4.51); Absolute Neutrophil Count 4.4 X10^3/uL (2.0-7.7); Basophil# 0.03 X10^3/uL; Basophil% 0.4 % (0-1); Eosinophil# 0.59 X10^3/uL; Eosinophils% 7.8 % (0-5); Hematocrit 43.5 % (37-47); Hemoglobin 14.6 g/dL (12.0-15.0); Lymphocyte # 1.95 X10^3/ul (4.0); Lymphocyte % 25.9 % (19-41); Mean Corp Hgb Conc 33.6 g/dL (32-36); Mean Corpuscular Hgb 30.8 pg (27.0-32.0); Mean Corpuscular Volume 91.8 fL (81-99); Monocyte# 0.58 X10^3/uL; Monocyte% 7.7 % (0-10); NRBC Flagged by Analyzer 0 % (0-5); Neutrophil # 4.36 X10^3/uL (2.7-7.7); Neutrophil % 57.8 % (47-70); Platelet Count 211 K/mm3 (150-450); RBC Distribution Width CV 12.2 % (11.6-14.6); RBC Distribution Width SD 41.4 fl (35.1-43.9); Red Blood Count 4.74 M/mm3 (4.2-5.4); White Blood Count 7.5 K/mm3 (4.4-11.0)
[2019-08-17 15:18] LABS: hCG Titer Quant., Serum < 1 mIU/mL (1-3)
== END ==
PROVIDERS: PCP Family Medicine; Referring Provider Obstetrics & Gynecology; Visit Provider Obstetrics & Gynecology
DX: O09.90 Supervision of high risk pregnancy, unspecified, unspecified trimester (principal); Z3A.00 Weeks of gestation of pregnancy not specified
CPT/HCPCS: 36415; 84702; 85025

== ENCOUNTER → 2020-05-18 16:23 | Outpatient (CLI) | payer OTHER, SELFPAY ==
[2020-05-18 11:40] VITALS: BMI 27.3
== END ==
PROVIDERS: PCP Family Medicine; Referring Provider Obstetrics & Gynecology; Visit Provider Obstetrics & Gynecology
DX: Z34.90 Encounter for supervision of normal pregnancy, unspecified, unspecified trimester (principal)
CPT/HCPCS: 87086; 87088

== ENCOUNTER → 2020-06-17 16:27 | Outpatient (CLI) | payer OTHER, SELFPAY ==
[2020-06-13 11:37] VITALS: BMI 27.3
[2020-06-17 18:36] LABS: Chlamydia Trachomatis by PCR Negative (Negative); Neisserai gonorrhoeae by PCR Negative (Negative); Probe Check PASS; Sample Adequacy Control PASS; Specimen Processing Control PASS
== END ==
PROVIDERS: PCP Family Medicine; Referring Provider Obstetrics & Gynecology; Visit Provider Obstetrics & Gynecology
DX: O09.90 Supervision of high risk pregnancy, unspecified, unspecified trimester (principal); Z3A.00 Weeks of gestation of pregnancy not specified
CPT/HCPCS: 87491; 87591

== ENCOUNTER 2020-07-12 17:31 | Emergency (ER) | payer OTHER, SELFPAY ==
[2020-07-12 11:13] VITALS: BMI 27.3
[2020-07-12 17:32] VITALS: BP 126/76; PULSE 106; RESP 15; TEMP 36.4; O2SAT 100; BMI 26.5
--- NOTE | 2020-07-12 17:45 | US_ITS ---
STUDY: SECOND AND THIRD TRIMESTER OBSTETRICAL ULTRASOUND - LIMITED REASON FOR EXAM: Female, 25 years old spotting LMP: PRIOR ULTRASOUND: None. TECHNIQUE: Transabdominal TECHNICAL QUALITY: Adequate. FINDINGS: There is a single intrauterine fetus. The fetus is in a breech presentation. There is demonstrated cardiac activity with a heart rate of 158 bpm. There is a normal amniotic fluid volume. The largest amniotic fluid pocket measures 7.9 cm.. The placenta is posterior and fundal There are Grade 0 placental changes. The cervix measures 3.8 cm in length. BIOMETRY: BPD: 3.59 cm: 17 weeks, 0 days HC: 14.05 cm: 17 weeks, 2 days AC: 11.28 cm: 17 weeks, 0 days FL: 2.31 cm: 16 weeks, 6 days Age by LMP: 17 weeks, 1 days. DEVIKA by LMP: 12/19/2020. age by current US: 17 weeks, 0 days. DEVIKA by current US: 12/20/2020. Estimated weight: 178 grams, +/- 27 grams, 36 percentile. US/OB Limited With Biometrics IMPRESSION: Viable intrauterine gestation approximately 17 weeks gestational age. No significant abnormality Electronically Signed: Stanton Patel MD at 19:51 EDT , Service support ,
[2020-07-12 18:34] LABS: Absolute Lymphocyte Count 1.53 X10^3/uL (0.83-4.51); Absolute Neutrophil Count 7.8 X10^3/uL (2.0-7.7); Basophil# 0.02 X10^3/uL; Basophil% 0.2 % (0-1); Eosinophil# 0.18 X10^3/uL; Eosinophils% 1.8 % (0-5); Hematocrit 36.5 % (37-47); Hemoglobin 12.5 g/dL (12.0-15.0); Lymphocyte # 1.53 X10^3/ul (0.83-4.51); Lymphocyte % 15.1 % (19-41); Mean Corp Hgb Conc 34.2 g/dL (32-36); Mean Corpuscular Hgb 30.4 pg (27.0-32.0); Mean Corpuscular Volume 88.8 fL (81-99); Mean Platelet Vol. 9.8 fl (6.2-12.0); Monocyte# 0.64 X10^3/uL; Monocyte% 6.3 % (0-10); NRBC Flagged by Analyzer 0 % (0-5); Neutrophil # 7.75 X10^3/uL (2.7-7.7); Neutrophil % 76.2 % (47-70); Platelet Count 198 K/mm3 (150-450); RBC Distribution Width CV 13.7 % (11.6-14.6); RBC Distribution Width SD 44.2 fl (35.1-43.9); Red Blood Count 4.11 M/mm3 (4.2-5.4); White Blood Count 10.2 K/mm3 (4.4-11.0)
[2020-07-12 19:07] LABS: hCG Titer Quant., Serum 10526 mIU/mL (1-3)
--- NOTE | 2020-07-12 20:47 | ED.VIS.FEGU ---
HPI HPI - Female History of Present Illness Chief Complaint: Vag Bld, Preg Narrative Narrative: 25-year-old female G3, P1 at approximately 17 weeks presents with concern for vaginal spotting. States this began this morning. Denies any pain. Denies any passage of tissue. States that she had a miscarriage with her first and then a stillbirth at 22 weeks with her second. Denies any fever or chills. Denies any trauma. [facility] Medical History (Updated 07/12/20 @ 20:[address] Linus Salomon DO) demise Home Medications vit no.[id number] 1 tab PO DAILY 07/14/19 [History Last Taken 07/13/19 08:00] Allergy/AdvReac Type Severity Reaction Status Date / Time No Known Allergies Allergy Verified 07/12/20 17:31 Family History Grandmother Diabetes Social History Smoking Status: Never smoker alcohol intake: never substance use type: does not use caffeine: Yes what type of physical activity do you participate in: none seatbelt use: always do you feel safe at home: Yes additional social history: -Jose ROS ROS ED Constitutional Constitutional ED: Denies chills, fever(s) or sweats Eyes Eyes: Denies blurry vision, change in vision or diplopia ENT ENT ED: Denies rhinorrhea or sore throat Cardiovascular Cardiovascular: Denies chest pain, orthopnea, palpitations or racing heartbeat Respiratory/Chest Respiratory/Chest: Denies cough, dyspnea, dyspnea on exertion, orthopnea or sputum Gastrointestinal Gastrointestinal: Denies abdominal pain, constipation, diarrhea, melena, nausea or vomiting Genitourinary Genitourinary ED: Reports other Details: Vaginal bleeding ; Denies dysuria, hematuria or urinary frequency Musculoskeletal Musculoskeletal: Denies arthralgias, myalgias or neck pain Integumentary Denies rash Neurologic Neurologic: Denies headache(s), paresthesias or weakness Psychiatric Psychiatric: Denies anxiety or depression Hematologic/Lymphatic Hematologic/Lymphatic: Denies easy bleeding or easy bruising Allergic/Immunologic Allergic/Immunologic ED: Denies mouth swelling or tongue swelling EXAM Physical Exam Const Vital Signs: 07/12/20 17:32 Temperature 97.6 F L Temperature Source Temporal Pulse Rate 106 H Respiratory Rate 15 Blood Pressure 126/76 H Blood Pressure Mean 92 Pulse Ox 100 Oxygen Delivery Method Room Air Positive well nourished and well developed General Appearance ED: well developed HEENT Reports TM's clear and moist mucous membranes normocephalic and atraumatic Tympanic Membrane ED: Yes TM's clear Eyes PERRL and EOMs intact bilaterally Neck no lymphadenopathy, supple and no JVD Chest Wall inspection of chest normal Resp normal respiratory effort and clear to auscultation bilaterally Cardio regular rate, S1 normal heart sound, S2 normal heart sound and no murmurs Peripheral Pulses: pulses 2+ throughout GI soft to palpation, non-tender and non-distended Back/Spine no CVA tenderness and no thoracic nor lumbar tenderness Extremity normal to inspection General Extremety ED: Negative for edema or tenderness General Extremity: Negative for edema Neuro oriented x3, CN's II-XII intact bilaterally and no sensory deficits noted Sensorium / Orientation: alert Motor Exam: strength 5/5 throughout Psych mental status grossly normal Skin no rashes or lesions noted MDM MDM MDM Narrative Medical decision making narrative: Patient appears well nontoxic. Vital signs initially tachycardic but improved on reevaluation. Hemoglobin normal. Transvaginal ultrasound shows viable intrauterine with normal heart rate. Patient is B+ and does not require RhoGam. Patient will be advised to follow-up with her [employer] Dr. Funk tomorrow. Asked to return for new or worsening symptoms. Patient agreeable and discharged home in stable condition. Lab Data Attestation: I reviewed the patient's lab results. Labs: Laboratory Results - last 24 hr 07/12/20 07/12/20 07/12/20 18:25 18:25 18:25 WBC 10.2 RBC 4.11 L Hgb 12.5 Hct 36.5 L MCV 88.8 MCH 30.4 MCHC 34.2 RDW Std Deviation 44.2 H RDW Coeff of [place] 13.7 Plt Count 198 MPV 9.8 Immature Gran % (Auto) 0.400 Neut % (Auto) 76.2 H Lymph % (Auto) 15.1 L [place] % (Auto) 6.3 Eos % (Auto) 1.8 Baso % (Auto) 0.2 Absolute Neuts (auto) 7.8 H Absolute Lymphs (auto) 1.53 Nucleated RBC % 0 HCG, Quant 85778 H Blood Type B POSITIVE Radiography Diagnostic Testing: Radiology Impression Obstetrics Ultrasound 07/12/20 17:45 IMPRESSION: Viable intrauterine gestation approximately 17 weeks gestational age. No significant abnormality Electronically Signed: Stanton Patel MD at 19:51 EDT , Service support , Discharge Plan Triage Chief Complaint: Vag Bld, Preg ED Provider: Linus Salomon Dx/Rx/DC Orders Clinical Impression: Vaginal bleeding during Instructions: Bleeding During Early Prescriptions: No Action vit no.[id number] 1 EACH tablet 1 tab PO DAILY RF: 0 Primary Care Provider: Clinton Naidu Referrals: Clinton Naidu DO [Primary Care Provider] - Amanda Funk MD [STAFF PHYSICIAN] - 1 Day Disposition Disposition: Home, self care
== END 2020-07-12 21:33 | disposition home or self-care (01) ==
PROVIDERS: Emergency Provider Emergency Medicine; PCP Family Medicine
DX: O20.9 Hemorrhage in early pregnancy, unspecified (principal); Z3A.17 17 weeks gestation of pregnancy
CPT/HCPCS: 76816; 84702; 85025; 86900; 86901; 99282; A4216

== ENCOUNTER → 2020-07-13 16:36 | Outpatient (CLI) | payer OTHER, SELFPAY ==
[2020-07-13 14:35] VITALS: BMI 26.5
== END ==
PROVIDERS: PCP Family Medicine; Referring Provider Obstetrics & Gynecology; Visit Provider Obstetrics & Gynecology
DX: O26.899 Other specified pregnancy related conditions, unspecified trimester (principal); N89.8 Other specified noninflammatory disorders of vagina; Z3A.00 Weeks of gestation of pregnancy not specified
CPT/HCPCS: 87070; 87205

== ENCOUNTER → 2020-08-03 12:12 | Outpatient (CLI) | payer SELFPAY, OTHER ==
[2020-07-12 10:53] VITALS: BMI 27.3
[2020-07-13 14:35] VITALS: BMI 26.5
--- NOTE | 2020-08-03 12:15 | US_ITS ---
STUDY: SECOND AND THIRD TRIMESTER OBSTETRICAL ULTRASOUND REASON FOR EXAM: Female, 25 years old anatomy scan LMP: 03/14/2020. TECHNIQUE: Transabdominal and Transvaginal TECHNICAL QUALITY: Adequate. PRIOR ULTRASOUND: None. FINDINGS: There is a single intrauterine fetus. The fetus is in a variable presentation. There is demonstrated cardiac activity with a heart rate of 142 bpm. There is a normal amniotic fluid volume. The largest amniotic fluid pocket measures 3.4 cm x 3.1 cm. The amniotic fluid index (JOSE) is within normal limits. The placenta is posterior in location and is not low lying. There are Grade 0 placental changes. The cervix measures 4.1 cm in length. The bilateral adnexal regions are normal. BIOMETRY: BPD: 4.6 cm: 19 weeks, 5 days HC: 17.1 cm: 19 weeks, 4 days AC: 14.2 cm: 19 weeks, 4 days FL: 3 cm: 19 weeks, 2 days CI: 77% FL/BPD: 66% FL/HC: FL/AC: 21% HC/AC: 1.2 age by current US: 19 weeks, 2 days. DEVIKA by current US: 12/26/2020. Estimated weight: 300 grams, +/- 45 grams, 14 %. age by prior US: 20 weeks, 1 days. DEVIKA by prior US: 12/20/2020. Age by LMP: 20 weeks, 2 days. DEVIKA by LMP: 12/19/2020. ANATOMY: Gender: Female Cranium: Normal lateral ventricles. Normal choroid plexus. Normal cerebellum. Normal cisterna magna. Normal face, nose and lips. Chest: Normal 4-chamber heart. Abdomen/Pelvis: Normal diaphragm. Normal stomach. Normal abdominal wall. Normal cord insertion. Normal 3 vessel cord. Normal kidneys. Normal bladder. Spine: Normal cervical spine. Normal thoracic spine. Normal lumbar spine. Normal sacrum. Extremities: Normal bilateral upper extremities. Normal bilateral lower extremities. IMPRESSION: Single live intrauterine gestation with a mean gestational age of 20 weeks and 1 day. The measurements obtained today following within the normal expected range. Electronically Signed: Simon Dan MD at 14:21 EDT , Service support , STUDY: FIRST TRIMESTER OBSTETRICAL ULTRASOUND REASON FOR EXAM: Female, 25 years old. Cervical length measurement. TECHNIQUE: Transvaginal TECHNICAL QUALITY: Adequate. PRIOR ULTRASOUND: None. FINDINGS: The cervical length measures 4.1 cm. There is evidence of prior cerclage. US/OB Anatomy Scan IMPRESSION: Cervical length measures 4.1 cm. There is evidence of a prior cerclage. Electronically Signed: Simon Dan MD at 14:21 EDT , Service support ,
== END ==
PROVIDERS: PCP Family Medicine; Referring Provider Nurse Practitioner Women's Health; Visit Provider Nurse Practitioner Women's Health
DX: Z34.92 Encounter for supervision of normal pregnancy, unspecified, second trimester (principal)
CPT/HCPCS: 76805; 76817

== ENCOUNTER → 2020-09-30 12:37 | Outpatient (CLI) | payer OTHER, SELFPAY ==
[2020-09-02 13:12] VITALS: BMI 26.5
[2020-09-30 13:06] LABS: Absolute Lymphocyte Count 1.36 X10^3/uL (0.83-4.51); Absolute Neutrophil Count 7.2 X10^3/uL (2.0-7.7); Basophil# 0.05 X10^3/uL; Basophil% 0.5 % (0-1); Eosinophil# 0.29 X10^3/uL; Hematocrit 39.1 % (37-47); Hemoglobin 13.6 g/dL (12.0-15.0); Lymphocyte # 1.36 X10^3/ul (0.83-4.51); Lymphocyte % 14.1 % (19-41); Mean Corp Hgb Conc 34.8 g/dL (32-36); Mean Corpuscular Hgb 31.8 pg (27.0-32.0); Mean Corpuscular Volume 91.4 fL (81-99); Mean Platelet Vol. 9.1 fl (6.2-12.0); Monocyte# 0.66 X10^3/uL; Monocyte% 6.8 % (0-10); NRBC Flagged by Analyzer 0 % (0-5); Neutrophil # 7.22 X10^3/uL (2.7-7.7); Neutrophil % 74.7 % (47-70); Platelet Count 203 K/mm3 (150-450); RBC Distribution Width CV 13.6 % (11.6-14.6); RBC Distribution Width SD 45.7 fl (35.1-43.9); Red Blood Count 4.28 M/mm3 (4.2-5.4); White Blood Count 9.7 K/mm3 (4.4-11.0)
[2020-09-30 13:18] LABS: Glucose Challenge Gest 1H 50g 112 mg/dL (70-140)
[2020-09-30 13:50] LABS: Rubella IgG Reactive (Nonreactive)
== END ==
PROVIDERS: PCP Family Medicine; Referring Provider Obstetrics & Gynecology; Visit Provider Obstetrics & Gynecology
DX: Z34.90 Encounter for supervision of normal pregnancy, unspecified, unspecified trimester (principal)
CPT/HCPCS: 36415; 82950; 85025; 86762; 86850; 86900; 86901

== ENCOUNTER → 2020-11-24 15:31 | Outpatient (CLI) | payer OTHER, SELFPAY | PROVIDERS: PCP Family Medicine; Visit Provider Obstetrics & Gynecology | DX: Z34.90 Encounter for supervision of normal pregnancy, unspecified, unspecified trimester (principal) | CPT/HCPCS: 87081 ==

== ENCOUNTER 2020-12-11 21:10 | Inpatient (IN) | payer SELFPAY, OTHER ==
[2020-08-03 13:32] VITALS: BMI 26.5
[2020-12-11 21:31] VITALS: BP 134/70; PULSE 84; TEMP 36.6; O2SAT 96
[2020-12-11 21:33] VITALS: BMI 26.1
[2020-12-11 21:58] VITALS: PULSE 92; O2SAT 98
[2020-12-11 22:05] LABS: Absolute Lymphocyte Count 1.48 X10^3/uL (0.83-4.51); Basophil# 0.02 X10^3/uL; Basophil% 0.2 % (0-1); Eosinophil# 0.08 X10^3/uL; Eosinophils% 0.8 % (0-5); Hematocrit 40.9 % (37-47); Hemoglobin 14.1 g/dL (12.0-15.0); Lymphocyte # 1.48 X10^3/ul (0.83-4.51); Lymphocyte % 14.3 % (19-41); Mean Corp Hgb Conc 34.5 g/dL (32-36); Mean Corpuscular Volume 92.7 fL (81-99); Monocyte# 0.75 X10^3/uL; Monocyte% 7.2 % (0-10); NRBC Flagged by Analyzer 0 % (0-5); Neutrophil # 7.97 X10^3/uL (2.7-7.7); Neutrophil % 76.8 % (47-70); POSITIVE COUNT YES; Platelet Count 121 K/mm3 (150-450); RBC Distribution Width CV 13.2 % (11.6-14.6); RBC Distribution Width SD 44.4 fl (35.1-43.9); Red Blood Count 4.41 M/mm3 (4.2-5.4); White Blood Count 10.4 K/mm3 (4.4-11.0)
[2020-12-11 22:07] LABS: Differential Indicated SCAN CRITERIA MET
[2020-12-11 22:28] VITALS: BP 130/76; PULSE 80
[2020-12-11 22:30] VITALS: TEMP 36.3
[2020-12-11 22:31] LABS: Platelet Estimate ADEQUATE (ADEQ); Platelet Morphology CLUMPED
[2020-12-11 23:22] VITALS: PULSE 62
[2020-12-11 23:27] VITALS: BP 123/77; PULSE 67; TEMP 36.2
[2020-12-11] MEDS: Lactated Ringers 1,000 ML 50 ML IV (23:42)
[2020-12-11] MEDS: Lactated Ringers 500 ML 999 ML IV (23:42)
[2020-12-12] VITALS (30 sets, daily range): BP systolic 106–137; BP diastolic 59–86; PULSE 69–96; RESP 16; TEMP 35.7–36.9; O2SAT 95–100
[2020-12-12] MEDS: fentaNYL-bupivacaine (epidural) 100 ML BAG EPIDURAL (00:42)
[2020-12-12] MEDS: Oxytocin 30 units/NS 500 ml 30 UNITS/500 ML IV.SOLN 334 UNITS IV (03:59)
--- NOTE | 2020-12-12 04:32 | HP.PCM.OB_ITS ---
HPI - General General Date of Admission: 12/11/20 HPI Narrative BRIANA QUIROZ, is a 25 F who presents in active labor 6 to 7 cm dilated with regular contractions no bleeding or loss of fluid. Maternal Data Information DEVIKA Calculator Estimated Delivery Date Method Current WG Current Estimate 12/19/20 LMP (Certain) 39w 0d PFSH PFSH Medical History (Updated 12/12/20 @ 04:[address] Amanda Funk MD) demise History of pre-term labor Home Medications vit no.[id number] 1 tab PO DAILY 07/14/19 [History Last Taken 07/13/19 08:00] hydroxyprogest(PF)(preg presv) 275 mg/1.1 mL subcut auto-inject 275 mg SUBCUT QWEEK 09/02/20 [History Last Taken Unknown] Allergy/AdvReac Type Severity Reaction Status Date / Time No Known Allergies Allergy Verified 12/11/20 21:34 Family History Grandmother Diabetes Social History Smoking Status: Never smoker alcohol intake: never substance use type: does not use caffeine: Yes what type of physical activity do you participate in: none seatbelt use: always do you feel safe at home: Yes additional social history: -John History 3 Elective abortions Hx Para 1 Spontaneous abortions 1 Hx # Term Pregnancies Ectopic pregnancies Hx # Pregnancies 1 Multiple births # of living children 0 Past Pregnancies Del. Date Name GA/Weeks Outcome Route Bth Weight Infant Gen Labor Lgth Anesthesia Del [facility] Provider FOB 10/17/18 male 15 07/15/19 male 22 live - Delivery Date: 10/17/18 D&C Steph Vargas Delivery Date: 07/15/19 cervical insufficiency Amanda Funk Visit Details Expected Delivery Route/Plan Labor Preferences- CB/BF classes: declines labor support person: john labor intervention preferences: minimal pain management options preferred: minimal, open to epidural cut cord/dad catch: : yes PP control planned: NFP discussed possible routes of delivery and associated risks: special requests: [] Plans covid status: non immune counseled regarding risk of covid in vs vaccination and declined vaccination flu vaccine: declines tdap vaccine: declines rhogam: na LARC form signed: 10/14 movement and labor precautions reviewed. Problem list reviewed and updated with the most current plan of care details and appropriate orders placed. Relevant counseling for the gestational age provided. Continue routine care and follow up unless otherwise noted in visit notes/problem list details OB Flowsheet Initial Weight: 154 lb Date -?-?-?-?-?-?-?-?-?-?-?-?- EGA Weight BP Urine Prot -?-?-?-?-?-?-?-?-?-?-?-?- Glucose FHR FuHt Pres Dilation -?-?-?-?-?-?-?-?-?-?-?-?- Effaced St Visit Note 05/18/20 -?-?-?-?-?-?-?-?-?-?-?-?- 9w 2d 154 lb (+0 oz) 126/70 -?-?-?-?-?-?-?-?-?-?-?-?- 160 -?-?-?-?-?-?-?-?-?-?-?-?- SM- no vb crampi ng 06/13/20 -?-?-?-?-?-?-?-?-?-?-?-?- 13w 0d 154 lb 4 oz (+4 oz) 130/80 Negative -?-?-?-?-?-?-?-?-?-?-?-?- Negative 168 0 -?-?-?-?-?-?-?-?-?-?-?-?- GP - no LOF, VB. Having cramping like period cramps. Cervix closed. Appt with MFM this week to discuss cerclage. 07/12/20 -?-?-?-?-?-?-?-?-?-?-?-?- 17w 1d 153 lb (-16 oz) 124/62 Negative -?-?-?-?-?-?-?-?-?-?-?-?- Negative 165 -?-?-?-?-?-?-?-?-?-?--?-?- MH-NO Vb, LOF. F irst gisele inj today and instructed for home administration. Stop oral progesterone. Anatomy US at [facility] ordered/scheduled. 07/13/20 -?-?-?-?-?-?-?-?--?-?-?-?- 17w 2d 153 lb (-16 oz) 118/78 -?-?-?-?-?-?-?-?-?-?-?-?- 165 0 -?-?-?-?-?-?-?-?-?-?-?-?- GP - seen in ER last night for episode of bleeding. No bleeding currently. CL nl in ER. Cervix closed on exam and cerclage not on tension. vaginal culture collected. 08/03/20 -?-?-?-?-?-?-?-?-?-?-?-?- 20w 2d 153 lb 6 oz (-10 oz) 110/78 -?-?-?-?-?-?-?-?-?-?-?-?- 145 -?-?-?-?-?-?-?-?-?-?-?-?- GP - no LOF, VB, DFM, ctx Anatomy scan done today - awaiting report. 09/02/20 -?-?-?-?-?-?-?-?-?-?-?-?- 24w 4d 163 lb (+9 lb) 124/74 Negative -?-?-?-?-?-?-?-?-?-?-?-?- Negative 140 24 -?-?-?-?-?-?-?-?-?-?-?-?- SM- no vb lof go od fm no regular ctx, had faulty shot this week, awaiting next shipment to resume 09/30/20 -?-?-?-?-?-?-?-?-?-?-?-?- 28w 4d 164 lb (+10 lb) 128/82 Negative -?-?-?-?-?-?-?-?-?-?-?-?- Negative 160 29 -?-?-?-?--?-?-?-?-?-?-?-?- SM- no vb lof go od fmno reglar ctxnl cbc gct decline tdap 10/14/20 -?-?-?-?-?-?-?-?-?-?-?-?- 30w 4d 165 lb 8 oz (+11 lb 8 oz) 120/80 Negative -?-?-?-?-?-?-?-?-?-?-?-?- Negative 150 30 -?-?-?-?-?-?-?-?-?-?-?-?- GP - no ctx, LOF , VB, DFM, LARC signed. 10/28/20 -?-?-?-?-?-?-?-?-?-?-?-?- 32w 4d 166 lb 6 oz (+12 lb 6 oz) 120/66 Negative -?-?-?-?-?-?-?-?-?-?-?-?- Negative 140 32 -?-?--?-?-?-?-?-?-?-?-?-?- GP - no LOF, VB, DFM, ctx. Denies complaints 11/11/20 -?-?-?-?-?-?-?-?-?-?-?-?- 34w 4d 169 lb 8 oz (+15 lb 8 oz) 130/72 Negative -?-?-?-?-?-?-?-?-?-?-?-?- Negative 150 34 Cephalic -?-?-?-?-?-?-?-?-?-?-?-?- GP - no LOF, VB, DFM, ctx. Wants to stop aly due to headaches - recommended taking shot at least this week before discontinuing 11/24/20 -?-?-?-?-?-?-?-?-?-?-?-?- 36w 3d 171 lb (+17 lb) 134/70 Negative -?-?-?-?-?-?-?-?-?-?-?-?- Negative 140 36 Cephalic -?-?-?-?-?-?-?-?-?-?-?-?- SM- no vb lof go od fm no reuglar ctx cerclage removed gbs collected 12/02/20 -?-?-?-?-?-?-?-?-?-?-?-?- 37w 4d 171 lb 2 oz (+17 lb 2 oz) 128/78 Negative -?-?-?-?-?-?-?-?-?-?-?-?- Negative 140 36 Cephalic 4 -?-?-?-?-?-?-?-?-?-?-?-?- 70 -1 SM- n ovb lof good fm no regular ctx 12/09/20 -?-?-?-?-?-?-?-?-?-?-?-?- 38w 4d 169 lb (+15 lb) 136/82 Negative -?-?-?-?-?-?-?-?-?-?-?-?- Negative 130 36 Cephalic 5 -?-?-?-?-?-?-?-?-?-?-?-?- 70 0 SM- no vb lof good fm nor egular ctx SM- no vb lof good fm nor eg ular ctx reviewed labor precautions, nl annemarie. 12/11/20 -?-?-?-?-?-?-?-?-?-?-?-?- 38w 6d 162 lb (+8 lb) -?-?-?-?-?-?-?-?-?-?-?-?- -?-?-?-?-?-?-?-?-?-?-?-?- NST FHR Rate Baby A Baseline: 140 Variability:: Moderate Accelerations:: 15 x 15 Decelerations:: None NST Reactive:: Yes FHR Category:: Category I Uterine Activity:: q3-5 ROS Constitutional Constitutional: Reports systems reviewed and no addt'l complaints, except as documented ENT HEENT: Reports systems reviewed and no addt'l complaints, except as documented Cardiovascular Cardiovascular: Reports systems reviewed and no addt'l complaints, except as documented Respiratory/Chest Respiratory/Chest: Reports systems reviewed and no addt'l complaints, except as documented Gastrointestinal Gastrointestinal: Reports systems reviewed and no addt'l complaints, except as documented and nausea; Denies abdominal pain Genitourinary Genitourinary: Reports systems reviewed and no addt'l complaints, except as documented, contractions Details: present and frequency (regular ) and movement Details: present Musculoskeletal Musculoskeletal: Reports systems reviewed and no addt'l complaints, except as documented Integumentary Integumentary: Reports as per HPI Neurologic Neurologic: Reports systems reviewed and no addt'l complaints, except as docu mented Endocrine Endocrinology: Reports systems reviewed and no addt'l complaints, except as documented Vital Signs Vital Signs Vital Signs: Weight Weight: 162 lb Body Mass Index (BMI) 26.1 Physical Exam Const alert, oriented x3 and healthy appearing Constitutional Narrative: uncomfortable with contractions HEENT normocephalic and moist oral mucous membranes Head and Scalp: atraumatic Neck full ROM, no lymphadenopathy, supple and thyroid normal General: trachea midline Thyroid: thyroid normal Lymph Lymphatic: no lymphadenopathy noted Chest inspection of chest normal Resp normal respiratory effort Cardio regular rate GI normal to inspection, nondistended, normoactive bowel sounds, soft to palpation and non-tender Inspection: gravid external exam normal Bimanual Exam - Vag & Uterus: uterus non-tender Manual OB Exam: estimated gestational size appropriate, presentation cephalic, dilated, effaced and station Extremity normal to inspection General Extremity: Negative for edema Skin no rashes or lesions noted Neuro deep tendon reflexes 2+ bilaterally Motor Exam: strength 5/5 throughout and clonus absent Psych mental status grossly normal Labs Labs Labs: Blood Type B POSITIVE Antibody Screen NEGATIVE Hct 40.9 % (37-47) Hgb 14.1 g/dL (12.0-15.0) Obstetrics US Syphilis Total Ab Pending Rubella IgG Antibody Reactive (Nonreactive) Hep Bs Antigen Non-Reactive (Nonreactive) HIV 1&2 Antibody Non-Reactive (Nonreactive) C.trachomatis DNA (PCR) Negative (Negative) Glucose 1 Hr 50 gm 112 mg/dL (70-140) Rhogam given: No Miscellaneous Test Assessment & Plan (1) : QUALIFIERS: Weeks of gestation: 38 weeks Qualified Code(s): Z3A.38 - 38 weeks gestation of COMMENT: declines ntd genetic and carrier. nl anatomy (2) Supervision of high risk , antepartum: COMMENT: PRR DEVIKA: 12/19/20 girl Spouse: John (3) Cervical insufficiency in , antepartum: COMMENT: MFM appt 06/16, cerclage-placed and [place]-ordered. removed cerclage 11/24 (4) Prior with demise and current : QUALIFIERS: Trimester: second trimester Qualified Code(s): O09.292 - Supervision of with other poor reproductive or obstetric history, second trimester COMMENT: 15 weeks and 22 weeks; negative APL PLAN: Admit in active labor prepare for vaginal delivery epidural if desired
--- NOTE | 2020-12-12 04:34 | EX.PCM.OBRPT ---
Maternal Data Information DEVIKA Calculator Estimated Delivery Date Method Current WG Current Estimate 12/19/20 LMP (Certain) 39w 0d Vaginal Delivery Operative Information Date of Procedure: 12/12/20 Pre-Operative Diagnosis: IAL Post-Operative Diagnosis: same Surgery / Procedure Performed: Spontaneous Vaginal Delivery Type of Anesthesia: Epidural Special Medications: none Estimated Blood Loss: 200 Fluids Replaced: crystalloid Findings Description of Procedure: Patient began pushing and delivered the head in the [CHRISTY] presentation. The head was delivered atraumatically . The anterior and posterior shoulders delivered without complication followed by the rest of the infant and the infant was placed on the maternal abdomen. Delayed cord clamping was employed for approximately 60 seconds. Cord was clamped and cut and gentle traction was applied to the cord and the placenta delivered spontaneously immediately following it was noted to be intact with three-vessel cord. The perineum and vagina were inspected and noted to have a small first-degree perineal laceration that was repaired in the usual fashion with 3-0 Vicryl repeat in 1 additional stitch on the vaginal sidewall. EBL was 200 cc. Patient and tolerated delivery well. Presentation: CHRISTY Amniotic Membrane Rupture Type: Artificial Amniotic Fluid Description: Clear Placental Delivery Description: Spontaneous Placenta Disposition: [facility] Cord Vessel Description: 3 Vessels Cord Entanglement: None Delayed Cord Clamping: Yes Post Vaginal Delivery Medications Given After Delivery: IV Pitocin Episiotomy Description: None Laceration: Perineal Extension/lac and 1st degree Complication Complications: None Procedures Urinary/Genital [id number]: [id number] Vaginal Delivery [facility]
--- NOTE | 2020-12-12 04:37 | PCM.DC ---
Discharge Instructions Diet Discharge Diet: No restrictions Activity Discharge Activity: Return to Normal Activity, May Not Drive (while taking narcotic pain medications.) and May Shower May resume sexual activity in: 4-6 weeks Dressing / Incision Call your doctor if your incision/area has: Continuous Slow Oozing, Sudden Increased Bleeding, Increased Pain/ Swelling, Increased Redness and Foul Smelling Discharge Follow Up Care Please Follow Up With: Amanda Funk MD When: Call [phone] to make an appointment with your doctor in 6 weeks. If you had elevated blood pressure or 4th degree laceration, you will need to be seen in 2 weeks. Test Results: Test results from this visit will be discussed in further detail at your follow-up appointment, if applicable. Discharge Plan Admission Admit Date/Time: 12/11/20 21:10 Primary Reason for Your Visit: vaginal delivery Attending Provider: Amanda Funk Primary Care Provider: Clinton Naidu Discharge Orders/Prescriptions Prescriptions: No [place] (PF) 275 mg/1.1 mL auto-injector 275 mg subcut QWEEK RF: 0 vit no.[id number] 1 EACH tablet 1 tab PO DAILY RF: 0 Referrals / Follow Up: Clinton Naidu DO [Primary Care Provider] - Disposition Disposition (needs filled in before D/C Order can be placed): Home, Self Care
--- NOTE | 2020-12-12 04:39 | PN.OBGYN_ITS ---
Objective Data Objective Data Vital Signs: Weight: 162 lb Body Mass Index (BMI) 26.1 Intake & Output: Intake and Output for Last 24 Hours 12/10/20 12/11/20 12/12/20 23:59 23:59 23:59 Intake Total 1315 / 1315 Balance 1315 / 1315 Lab / Micro Data Result Diagrams: 12/11/20 21:40 Labs: Laboratory Results - last 24 hr 12/11/20 21:40: WBC 10.4, RBC 4.41, Hgb 14.1, Hct 40.9, MCV 92.7, MCH 32.0, MCHC 34.5, RDW Std Deviation 44.4 H, RDW Coeff of [place] 13.2, Plt Count 121 L, MPV 11.0, Immature Gran % (Auto) 0.700, Neut % (Auto) 76.8 H, Lymph % (Auto) 14.3 L, [place] % (Auto) 7.2, Eos % (Auto) 0.8, Baso % (Auto) 0.2, Absolute Neuts (auto) 8.0 H, Absolute Lymphs (auto) 1.48, Nucleated RBC % 0, Platelet Estimate ADEQUATE, Plt Morphology Comment CLUMPED 12/11/20 21:40: Blood Type B POSITIVE, Antibody Screen NEGATIVE Micro: Microbiology 12/11/20 21:40 Nasal Secretion SARS-CoV-2 Antigen (Rapid) - Final Assessment & Plan (1) Vaginal delivery: COMMENT: 38 SM girl juliane cerclage
[2020-12-12 11:17] LABS: Syphilis Antibodies Non-reactive
[2020-12-12 11:39] LABS: HIV - WCH Non-Reactive (Nonreactive); Hepatitis B Surface Antigen Non-Reactive (Nonreactive); Hepatitis C Antibody Non-Reactive (Nonreactive)
[2020-12-13 04:30] VITALS: BP 100/62; PULSE 77; RESP 16; TEMP 36.6; O2SAT 96
--- NOTE | 2020-12-13 05:07 | NURSING ---
All documentation by student Cesar Orellana reviewed by this RN Ana Rosa.
[2020-12-13 08:32] VITALS: BP 102/68; PULSE 85; RESP 16; TEMP 36.6
--- NOTE | 2020-12-13 08:34 | PCM.PN.OB ---
Subjective Subjective Patient doing well without complaints. Tolerating PO. Ambulating and voiding without difficulty. Feeding well. Denies chest pain, shortness of breath, calf pain/swelling, fevers, chills, lightheadedness. Objective Data Objective Data Vital Signs: Vital Signs Temp Pulse Resp BP Pulse Ox 97.9 F 77 16 100/62 96 12/13/20 04:30 12/13/20 04:30 12/13/20 04:30 12/13/20 04:30 12/13/20 04:30 Oxygen Delivery Method Room Air Weight: 162 lb Body Mass Index (BMI) 26.1 Intake & Output: Intake and Output for Last 24 Hours 12/11/20 12/12/20 12/13/20 23:59 23:59 23:59 Intake Total 1815 / 1815 Output Total 800 / 800 Balance 1015 / 1015 Lab / Micro Data Result Diagrams: 12/11/20 21:40 Labs: Laboratory Results - last 24 hr 12/11/20 21:40: Syphilis Total Ab Non-reactive 12/11/20 21:40: Hep Bs Antigen Non-Reactive, Hepatitis C Antibody Non-Reactive, HIV 1&2 Antibody Non-Reactive Micro: Microbiology 12/11/20 21:40 Nasal Secretion SARS-CoV-2 Antigen (Rapid) - Final Physical Exam Const alert and oriented x3 HEENT normocephalic Eyes PERRL Neck full ROM Resp normal respiratory effort GI soft to palpation GI Narrative: FF below U Assessment & Plan (1) Vaginal delivery: COMMENT: 38 SM girl juliane cerclage PLAN: s/p PPD # 1 1. routine post delivery care 2. breast feeding- support given 3. rh positive 4. rubella immune 5. home today
== END 2020-12-13 10:25 | disposition home or self-care (01) | DRG 807 ==
PROVIDERS: Admitting Provider Obstetrics & Gynecology; PCP Family Medicine; Referring Provider Obstetrics & Gynecology; Visit Provider Obstetrics & Gynecology
DX: O70.0 First degree perineal laceration during delivery (principal); Z37.0 Single live birth; Z3A.38 38 weeks gestation of pregnancy
CPT/HCPCS: 59025; 59050; 85025; 86703; 86780; 86803; 86850; 86900; 86901; 87340; 87426; 99218; J7120; G0378

== ENCOUNTER → 2022-02-06 | Outpatient (CLI) | payer OTHER, SELFPAY ==
[2022-02-09 04:07] LABS: Chlamydia By Nucleic Acid AMP Negative (Negative)
[2022-02-11 15:32] LABS: Gonococcus By Nucleic Acid AMP Negative (Negative)
== END | disposition home or self-care (01) ==
LOC: LABSPEC 16:51
PROVIDERS: PCP Family Medicine; Visit Provider Obstetrics & Gynecology
DX: Z34.90 Encounter for supervision of normal pregnancy, unspecified, unspecified trimester (principal)
CPT/HCPCS: 87086; 87088; 87491; 87591

== ENCOUNTER → 2022-04-02 | Outpatient (CLI) | payer OTHER, SELFPAY ==
[2022-04-02 10:05] LABS: Absolute Lymphocyte Count 1.53 X10^3/uL (0.83-4.51); Absolute Neutrophil Count 7.1 X10^3/uL (2.0-7.7); Basophil# 0.03 X10^3/uL; Basophil% 0.3 % (0-1); Eosinophil# 0.14 X10^3/uL; Eosinophils% 1.5 % (0-5); Hematocrit 43.9 % (37-47); Lymphocyte # 1.53 X10^3/ul (0.83-4.51); Lymphocyte % 16.1 % (19-41); Mean Corp Hgb Conc 34.2 g/dL (32-36); Mean Corpuscular Hgb 30.8 pg (27.0-32.0); Mean Corpuscular Volume 90.1 fL (81-99); Mean Platelet Vol. 9.9 fl (6.2-12.0); Monocyte# 0.64 X10^3/uL; Monocyte% 6.7 % (0-10); NRBC Flagged by Analyzer 0 % (0-5); Neutrophil % 74.8 % (47-70); Platelet Count 206 K/mm3 (150-450); RBC Distribution Width CV 13.7 % (11.6-14.6); RBC Distribution Width SD 45.7 fl (35.1-43.9); Red Blood Count 4.87 M/mm3 (4.2-5.4); White Blood Count 9.5 K/mm3 (4.4-11.0)
[2022-04-02 11:08] LABS: HIV - WCH Non-Reactive (Nonreactive); Hepatitis B Surface Antigen Non-Reactive (Nonreactive); Hepatitis C Antibody Non-Reactive (Nonreactive); Rubella IgG Reactive (Nonreactive); Syphilis Antibodies Non-reactive
== END | disposition home or self-care (01) ==
LOC: PAVLAB 09:54
PROVIDERS: Obstetrics & Gynecology; PCP Nurse Practitioner Family; Referring Provider Obstetrics & Gynecology; Visit Provider Obstetrics & Gynecology
DX: Z34.90 Encounter for supervision of normal pregnancy, unspecified, unspecified trimester (principal)
CPT/HCPCS: 36415; 85025; 86703; 86762; 86780; 86803; 86850; 86900; 86901; 87340

== ENCOUNTER → 2022-05-30 | Outpatient (CLI) | payer OTHER, SELFPAY ==
--- NOTE | 2022-05-30 08:22 | US_ITS ---
STUDY: SECOND AND THIRD TRIMESTER OBSTETRICAL ULTRASOUND - LIMITED REASON FOR EXAM: Female, 27 years old placenta follow-up -- 28 weeks PRIOR ULTRASOUND: None. TECHNIQUE: Transvaginal TECHNICAL QUALITY: Adequate. FINDINGS: There is a single intrauterine fetus. The fetus is in a cephalic presentation. There is demonstrated cardiac activity with a heart rate of 144 bpm. There is a normal amniotic fluid volume. The largest amniotic fluid pocket measures 5.0 cm. The placenta is anterior in location and is not low lying. There are Grade 1 placental changes. The cervix measures 3.7 cm cm in length. There is a cerclage in place. IMPRESSION: Single live intrauterine with an anterior in location placenta that is not low lying. Electronically Signed: Keturah Hassan MD at 10:28 EDT , STUDY: SECOND AND THIRD TRIMESTER OBSTETRICAL ULTRASOUND - LIMITED REASON FOR EXAM: Female, 27 years old placenta follow-up -- 28 weeks PRIOR ULTRASOUND: None. TECHNIQUE: Transvaginal TECHNICAL QUALITY: Adequate. FINDINGS: There is a single intrauterine fetus. The fetus is in a cephalic presentation. There is demonstrated cardiac activity with a heart rate of 144 bpm. There is a normal amniotic fluid volume. The largest amniotic fluid pocket measures 5.0 cm. The placenta is anterior in location and is not low lying. There are Grade 1 placental changes. The cervix measures 3.7 cm cm in length. There is a cerclage in place. US/OB Limited (No Biometrics)
[2022-05-30 10:22] LABS: Absolute Neutrophil Count 6.6 X10^3/uL (2.0-7.7); Basophil# 0.02 X10^3/uL; Basophil% 0.2 % (0-1); Eosinophil# 0.06 X10^3/uL; Eosinophils% 0.7 % (0-5); Hematocrit 40.2 % (37-47); Hemoglobin 13.8 g/dL (12.0-15.0); Lymphocyte % 14.3 % (19-41); Mean Corp Hgb Conc 34.3 g/dL (32-36); Mean Corpuscular Volume 90.3 fL (81-99); Mean Platelet Vol. 9.2 fl (6.2-12.0); Monocyte# 0.46 X10^3/uL; Monocyte% 5.5 % (0-10); NRBC Flagged by Analyzer 0 % (0-5); Neutrophil % 78.7 % (47-70); Platelet Count 201 K/mm3 (150-450); RBC Distribution Width CV 13.5 % (11.6-14.6); RBC Distribution Width SD 44.8 fl (35.1-43.9); Red Blood Count 4.45 M/mm3 (4.2-5.4); White Blood Count 8.4 K/mm3 (4.4-11.0)
[2022-05-30 10:32] LABS: Glucose Challenge Gest 1H 50g 132 mg/dL (70-140)
[2022-05-30 11:31] LABS: HIV - WCH Non-Reactive (Nonreactive); Syphilis Antibodies Non-reactive
== END | disposition home or self-care (01) ==
PROVIDERS: Referring Provider Obstetrics & Gynecology; Visit Provider Obstetrics & Gynecology
DX: O44.00 Complete placenta previa NOS or without hemorrhage, unspecified trimester (principal); Z3A.00 Weeks of gestation of pregnancy not specified
CPT/HCPCS: 36415; 76815; 76817; 82950; 85025; 86703; 86780

== ENCOUNTER → 2022-07-27 | Outpatient (CLI) | payer OTHER, SELFPAY | END | disposition home or self-care (01) | LOC: LABSPEC 17:07 | PROVIDERS: Referring Provider Obstetrics & Gynecology; Visit Provider Obstetrics & Gynecology | DX: Z34.90 Encounter for supervision of normal pregnancy, unspecified, unspecified trimester (principal) | CPT/HCPCS: 87081 ==

== ENCOUNTER 2022-08-13 21:25 | Inpatient (IN) | payer SELFPAY, OTHER ==
[2022-08-13] VITALS (34 sets, daily range): BP systolic 113–149; BP diastolic 61–95; PULSE 77–107; TEMP 36.6; O2SAT 87–100; BMI 29.5
[2022-08-13] MEDS: LACTATED RINGERS 500 ML 999 ML IV ×2 (21:35→23:26)
[2022-08-13 21:59] LABS: Absolute Lymphocyte Count 1.52 X10^3/uL (0.83-4.51); Absolute Neutrophil Count 8.5 X10^3/uL (2.0-7.7); Basophil# 0.02 X10^3/uL; Basophil% 0.2 % (0-1); Eosinophil# 0.06 X10^3/uL; Eosinophils% 0.5 % (0-5); Hematocrit 41.2 % (37-47); Hemoglobin 14.5 g/dL (12.0-15.0); Lymphocyte # 1.52 X10^3/ul (0.83-4.51); Lymphocyte % 13.7 % (19-41); Mean Corp Hgb Conc 35.2 g/dL (32-36); Mean Corpuscular Hgb 31.5 pg (27.0-32.0); Mean Corpuscular Volume 89.4 fL (81-99); Mean Platelet Vol. 9.4 fl (6.2-12.0); Monocyte% 8.1 % (0-10); NRBC Flagged by Analyzer 0 % (0-5); Neutrophil # 8.53 X10^3/uL (2.7-7.7); Neutrophil % 76.7 % (47-70); Platelet Count 166 K/mm3 (150-450); RBC Distribution Width CV 13.7 % (11.6-14.6); RBC Distribution Width SD 44.2 fl (35.1-43.9); Red Blood Count 4.61 M/mm3 (4.2-5.4); White Blood Count 11.1 K/mm3 (4.4-11.0)
[2022-08-13] MEDS: Lactated Ringers 1,000 ML 200 ML IV (22:06)
--- NOTE | 2022-08-13 22:31 | HP.PCM.OB_ITS ---
HPI - General General Date of Admission: 08/13/22 Date of Service: 08/13/22 HPI Narrative BRIANA QUIROZ, is a 27 F who presents at 38.4 weeks IAL- SROM at 2000 today. Maternal Data Information DEVIKA Calculator Estimated Delivery Date Method Current WG Current Estimate 08/23/22 LMP (Certain) 38w 4d Other Estimates 08/20/22 Ultrasound #1 39w 0d Final DEVIKA: 08/23/22 Final DEVIAK Source: US >20 weeks Gestational age: 38.4 weeks PFS PFS Medical History Cervical incompetence Cervical insufficiency in , antepartum demise History of pre-term labor Vaginal delivery Home Medications multivitamin no.47-iron fum 27 mg-folate no.1 1 mg-dha 300 mg capsule (PNV-DHA) cap PO 01/30/22 [History Last Taken Unknown] Allergy/AdvReac Type Severity Reaction Status Date / Time No Known Allergies Allergy Verified 08/10/22 11:08 Family History Grandmother Diabetes Aunt Cervical cancer, Onset Age: 37 Maternal Sister Heart murmur Brother Heart murmur Social History adopted: No household members: spouse and children housing: house number of children: 1 current occupational status: unemployed current occupational exposures/hazards: No pets and animals: No history of recent travel: No sexually active: Yes Smoking Status: Never smoker alcohol intake: never substance use type: does not use well-balanced diet: daily or most days caffeine: Yes Type: coffee Number of servings: 2 eating out: rarely or never during the past year weight has: increased > 10 lbs what type of physical activity do you participate in: none daniel/congregation: Shawn seatbelt use: always do you feel safe at home: Yes 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 Date Name GA/Weeks Outcome Route Bth Weight Infant Gen Labor Lgth Anesthesia Del Locatn Provider FOB 10/17/18 male 15 07/15/19 male 22 live - 12/12/20 Steph 39 live - full term 6lbs 4oz Female [facility] Dr. Funk Delivery Date: 10/17/18 Last Updated by: Steph Vargas D&C Delivery Date: 07/15/19 Last Updated by: Amanda Funk MD cervical insufficiency Delivery Date: 12/12/20 Last Updated by: Steph Vargas Cervical insuff-cerclage, Chelita Visit Details Expected Delivery Route/Plan Labor Preferences- CB/BF classes: no labor support person: Jose labor intervention preferences: [] pain management options preferred: [] cut cord/dad catch: no : yes PP control planned: discussed discussed possible routes of delivery and associated risks: [] special requests: [] Plans Covid status: declines Flu vaccine: declines Tdap vaccine: declines Rhogam: NA LARC form signed: yes Problem list reviewed and updated with the most current plan of care details and appropriate orders placed. Relevant counseling for the gestational age provided. Continue routine care and follow up unless otherwise noted in visit notes/problem list details OB Flowsheet Initial Weight: Not Recorded Date -?-?-?-?-?-?-?-?-?-?-?-?- EGA Weight BP Urine Prot -?-?-?-?-?-?-?-?-?-?-?-?- Glucose FHR FuHt Pres Dilation -?-?-?-?-?-?-?-?-?-?-?-?- Effaced St Visit Note 02/06/22 -?-?-?-?-?-?-?-?-?-?-?-?- 11w 5d 179 lb 120/80 -?-?-?-?-?-?-?-?-?-?-?-?- 160 -?-?-?-?-?-?-?-?-?-?-?-?- JV- single live iup measuring 12 weeks 1 day (within 1 week of LMP) devika per LMP. [facility]. continue progesterone. 03/05/22 -?-?-?-?-?-?-?-?-?-?-?-?- 15w 4d 182 lb 8 oz 122/72 Nega tive -?-?-?-?-?-?-?-?-?-?-?-?- Negative 155 -?-?-?-?-?-?-?-?-?-?-?-?- LC- no vb/crampi ng. [facility] consult next week for ultrasound and cerclage. declines afp. [facility] anatomy scan ordered. 04/02/22 -?-?-?-?-?-?-?-?-?-?-?-?- 19w 4d 184 lb 128/82 Negative -?-?-?-?-?-?-?-?-?-?-?-?- Negative 152 -?-?-?-?-?-?-?-?-?-?-?-?- -Feeling movem ent. Had brown DC with wiping 5 days ago and none since. No cramping. M US tomorrow. 05/02/22 -?-?-?-?-?-?-?-?-?-?-?-?- 23w 6d 187 lb 4 oz 119/65 Nega tive -?-?-?-?-?-?-?-?-?-?-?-?- Negative 150 -?-?-?-?-?-?-?-?-?-?-?-?- JV- pt needs us at 28 weeks to look at location of placenta. she is wondering if cerclage can just be left in place if needs a section. she was informed that it likely will need removed but we can discuss with [facility]. 05/30/22 -?-?-?-?-?-?-?-?-?-?-?-?- 27w 6d 191 lb 103/71 -?-?-?-?-?-?-?-?-?-?-?-?- 154 28 -?-?-?-?-?-?-?-?-?-?-?-?- -No Vb, LOF. G ogermain FM. Has US today. Larc, 28 wk labs. 06/18/22 -?-?-?-?-?-?-?-?-?-?-?-?- 30w 4d 191 lb 8 oz 111/75 Nega tive -?-?-?-?-?-?-?-?-?-?-?-?- Negative 155 31 -?-?-?-?-?-?-?-?-?-?-?-?- SM- no vb lof go od fm no regular ctx 07/02/22 -?-?-?-?-?-?-?-?-?-?-?-?- 32w 4d 192 lb 123/77 Negative -?-?-?-?-?-?-?-?-?-?-?-?- Negative 150 33 -?-?-?-?-?-?-?-?-?-?-?-?- SM- no vb lof go od fm no regular ctx, cerclage removal next visit 07/27/22 -?-?-?--?-?-?-?-?-?-?-?-?- 36w 1d 193 lb 6 oz 117/80 Nega tive -?-?-?-?-?-?-?-?-?-?-?-?- Negative 140 35 -?-?-?-?-?-?-?-?-?-?-?-?- SM- cerclage rem mendy without difficulty no vb lof good fm no regular ctx gbs collected 08/10/22 -?-?-?-?-?-?-?-?-?-?-?-?- 38w 1d 195 lb 4 oz 134/84 Nega tive -?-?-?-?-?-?-?-?-?-?-?-?- Negative 144 37 Cephalic 3 -?-?-?-?-?-?-?-?-?-?-?-?- 60 -2 JV- pt sta lilliam that since cerclage was removed she has been leaking a thick fluid. does not think her water broke. JV- pt states that since cer clage was removed she has been leaking a thick fluid. does not think her water broke. no pooling on exam and JOSE is 13. 08/13/22 -?-?-?-?-?-?--?-?-?-?-?-?- 38w 4d 194 lb 3.2 oz 133/83 132/85 132/81 138/82 127/82 132/87 133/86 130/78 135/85 -?-?-?-?-?-?-?-?-?-?-?-?- -?-?-?-?-?-?-?-?-?-?-?-?- NST FHR Rate Baby A Baseline: 145 Variability:: Minimal Decelerations:: None FHR Category:: Category II ROS Constitutional Constitutional: Denies change in weight, fatigue, fever(s), headache(s), poor appetite or weakness Eyes Eyes: Denies blurry vision, change in vision, floaters, seeing flashes or spots in vision ENT HEENT: Denies dizziness, headache(s), loss taste/smell or sore throat Cardiovascular Cardiovascular: Denies chest pain, dizziness, dyspnea, irregular heart rhythm, lightheadedness, palpitations or rapid heart rate Respiratory/Chest Respiratory/Chest: Denies change in mental status, chest tightness, cough, dyspnea or breast pain Gastrointestinal Gastrointestinal: Denies anorexia, chewing difficulty, constipation, diarrhea or weight changes Genitourinary Genitourinary: Denies difficulty urinating, dysuria, flank pain, genital pain, urinary frequency or urinary urgency Musculoskeletal Musculoskeletal: Denies back pain, difficulty walking, extremity pain, joint pain, muscle cramps or muscle weakness Integumentary Integumentary: Denies lesions or unusual bruising Neurologic Neurologic: Denies abnormal movements, abnormal speech, dizziness, numbness, seizure-like activity, syncope or weakness Psychiatric Psychiatric: Denies behavioral changes, change in appetite, confusion, depression, homicidal ideation, suicidal ideation or suicidal thoughts Endocrine Endocrinology: Denies excessive sweating, polydipsia or polyuria Hematologic/Lymphatic Hematologic/Lymphatic: Denies anemia Allergic/Immunologic Allergic/Immunologic: Denies itchy eyes, lip swelling, throat swelling, tongue swelling or wheezing Vital Signs Vital Signs Vital Signs: 08/13/22 21:36 08/13/22 21:36 08/13/22 21:36 Pulse Rate 80 Blood Pressure 133/83 H BP Systolic 133 BP Diastolic 83 Pulse Ox 97 08/13/22 22:00 08/13/22 22:00 08/13/22 21:59 Pulse Rate 100 Blood Pressure 132/85 H BP Systolic 132 BP Diastolic 85 Pulse Ox 99 08/13/22 22:04 08/13/22 22:04 08/13/22 22:06 Pulse Rate 94 Blood Pressure 132/81 H BP Systolic 132 BP Diastolic 81 Pulse Ox 98 08/13/22 22:06 08/13/22 22:10 08/13/22 22:10 Pulse Rate 84 80 Blood Pressure 138/82 H BP Systolic 138 BP Diastolic 82 Pulse Ox 08/13/22 22:09 08/13/22 22:15 08/13/22 22:14 Pulse Rate 89 Blood Pressure 127/82 H BP Systolic 127 BP Diastolic 82 Pulse Ox 98 08/13/22 22:14 08/13/22 22:15 08/13/22 22:20 Pulse Rate 88 93 Blood Pressure BP Systolic BP Diastolic Pulse Ox 99 08/13/22 22:20 08/13/22 22:21 08/13/22 22:21 Pulse Rate 77 Blood Pressure 132/87 H BP Systolic 132 BP Diastolic 87 Pulse Ox 90 08/13/22 22:22 08/13/22 22:22 08/13/22 22:25 Pulse Rate 89 Blood Pressure 133/86 H BP Systolic 133 BP Diastolic 86 Pulse Ox 95 08/13/22 22:25 08/13/22 22:27 08/13/22 22:27 Pulse Rate 90 87 Blood Pressure BP Systolic BP Diastolic Pulse Ox 97 08/13/22 22:30 Pulse Rate Blood Pressure 130/78 H BP Systolic 130 BP Diastolic 78 Pulse Ox Weight Weight: 194 lb 3.2 oz Body Mass Index (BMI) 29.5 Physical Exam Const alert, oriented x3 and no apparent distress General Appearance: cooperative Orientation / Consciousness: awake HEENT normocephalic Neck full ROM Lymph Lymphatic: no lymphadenopathy noted Chest inspection of chest normal Resp normal respiratory effort and normal air movement Effort and Inspection: able to speak in complete sentences and symmetric chest movement GI soft to palpation and non-tender Inspection: gravid Palpation: soft; Negative for tender external exam normal Back/Spine normal to inspection Extremity normal to inspection and full ROM Skin no rashes or lesions noted Psych mental status grossly normal Appearance: grossly normal Speech: normal speech Labs Labs Labs: Blood Type B POSITIVE Antibody Screen NEGATIVE Hct 41.2 % (37-47) Hgb 14.5 g/dL (12.0-15.0) Obstetrics US Syphilis Total Ab Non-reactive Rubella IgG Antibody Reactive (Nonreactive) Hep Bs Antigen Non-Reactive (Nonreactive) Chlamydia DNA (MIRTA) Negative (Negative) Neisseria gonorrhoeae DNA (MIRTA) Negative (Negative) HIV 1&2 Antibody Non-Reactive (Nonreactive) Glucose 1 Hr 50 gm 132 mg/dL (70-140) Rhogam given: No Miscellaneous Test Assessment & Plan (1) Active labor at term: PLAN: Patient presents IAL, plan expectant management for , pitocin/AROM PRN if needed. Pain management: plans epidural. GBS negative. Management of any complications: cervical insufficiency, cerclage removed at 36 weeks I have reviewed the [facility] and made any clinically relevant updates. (2) : QUALIFIERS: Weeks of gestation: 38 weeks Qualified Code(s): Z3A.38 - 38 weeks gestation of COMMENT: GBS neg. Nl anatomy US. declines genetic & carrier ntd testing (3) Supervision of high risk , antepartum: COMMENT: PRR , DEVIKA 08/23/22 boy, CARMENCITA Garciah Jose (4) Cervical insufficiency in , antepartum: COMMENT: s/p cerclage removal 36 weeks (5) demise: COMMENT: demise at 15w demise at 22w Charges/Coding Multi Select Codes Urinary/Genital Urinary/Genital CPT Codes: No Charge
[2022-08-13] MEDS: fentaNYL-bupivacaine (epidural) 100 ML BAG EPIDURAL (22:39)
[2022-08-13 22:58] LABS: Syphilis Antibodies Non-reactive
[2022-08-13] MEDS: Oxytocin 15 Units/NS 250ml 15 UNITS/250 ML IV.SOLN 83 UNITS IV (23:50)
[2022-08-14] VITALS (39 sets, daily range): BP systolic 113–134; BP diastolic 65–83; PULSE 75–119; RESP 16; TEMP 36.4–36.9; O2SAT 85–100
--- NOTE | 2022-08-14 00:02 | EX.PCM.OBRPT ---
Assessment & Plan (1) Active labor at term: PLAN: KW 38.5 Boy. IAL-SROM. Hx cerclage. (2) : QUALIFIERS: Weeks of gestation: 38 weeks Qualified Code(s): Z3A.38 - 38 weeks gestation of COMMENT: GBS neg. Nl anatomy US. declines genetic & carrier ntd testing (3) Supervision of high risk , antepartum: COMMENT: PRR , DEVIKA 08/23/22 boy, PC Steph Jose (4) demise: COMMENT: demise at 15w demise at 22w (5) Cervical insufficiency in , antepartum: COMMENT: s/p cerclage removal 36 weeks Maternal Data Information DEVIKA Calculator Estimated Delivery Date Method Current WG Current Estimate 08/23/22 LMP (Certain) 38w 5d Other Estimates 08/20/22 Ultrasound #1 39w 1d Final DEVIKA: 08/23/22 Final DEVIKA Source: US >20 weeks Gestational age: 38.5 weeks Vaginal Delivery Maternal Presentation Maternal Presentation: Active Labor Maternal Presentation: Patient began pushing and delivered the head in the MICHELLE presentation. The head was delivered atraumatically, no nuchal cord present. The anterior and posterior shoulders delivered without complication followed by the rest of the infant and the infant was placed on the maternal abdomen. Delayed cord clamping was employed for approximately 60 seconds. Cord was clamped and cut and gentle traction was applied to the cord and the placenta delivered spontaneously immediately following it was noted to be intact with three-vessel cord. The perineum and vagina were inspected and noted to have no laceration. Uterus firm with massage. Small amount of extra bleeding noted with massage. Methergine IM given. EBL was 250. Patient and infant tolerated delivery well. Apgars 8/9. Operative Information Date of Procedure: 08/14/22 Pre-Operative Diagnosis: See AP comments Post-Operative Diagnosis: Same Surgery / Procedure Performed: Spontaneous Vaginal Delivery electronic controls repairer supervisor #1: Osiris Butts Type of Anesthesia: Epidural Estimated Blood Loss: 250 Time of Delivery: 23:45 Findings Presentation: MICHELLE Amniotic Membrane Rupture Type: Spontaneous Time of Membrane Rupture: 1999 Amniotic Fluid Description: Clear Placental Delivery Description: Spontaneous Placenta Disposition: [facility] Cord Vessel Description: 3 Vessels Cord Entanglement: None Infant A Gender: Male (1 minute): 8 (5 minute): 9 Delayed Cord Clamping: Yes Post Vaginal Delivery Medications Given After Delivery: IV Pitocin, IM Pitocin and IM Methergin Episiotomy Description: None Laceration: None Complication Complications: None Multi Select Codes Urinary/Genital Urinary/Genital CPT Codes: 47936 Vaginal Delivery [facility]
[2022-08-14] MEDS: Oxytocin 10 UNITS/ML Vial IM (00:03)
[2022-08-14] MEDS: Methylergonovine 0.2 MG/ML Ampul IM (00:04)
--- NOTE | 2022-08-14 00:10 | DCINST_ITS ---
Discharge Instructions Diet Discharge Diet: No restrictions Activity Discharge Activity: Return to Normal Activity May resume sexual activity in: 6-8 weeks Dressing / Incision Call your doctor if you observe: Fever of 101 or Higher, Coldness, Increased Pain, Numbness or Tingling, Change in Color, Inability to urinate, Inability to have a bowel movement, Using more than 1 pad per hour, Shortness of breath, Dizziness, Fainting spells, Swelling in the ankles, Chest pain, Increased palpitations (irregular heartbeat), Calf discomfort and Uncontrolled pain Follow Up Care Please Follow Up With: Osiris Butts CNM When: Please call the office to schedule your follow up appointment in 6 weeks. If you had high blood pressure please call to schedule an appointment in 2 weeks. Test Results: Test results from this visit will be discussed in further detail at your follow- up appointment, if applicable. Discharge Plan Admission Admit Date/Time: 08/13/22 21:25 Attending Provider: Osiris Butts Primary Care Provider: [facility] Jessica Kahn Discharge Orders/Prescriptions Prescriptions: No Action PNV-DHA 27 mg iron-1 mg -300 mg capsule PO [facility] - Disposition Disposition (needs filled in before D/C Order can be placed): Home, Self Care
--- NOTE | 2022-08-14 05:46 | PN.OBGYN_ITS ---
Subjective Subjective Patient doing well without complaints. Tolerating PO. Ambulating and voiding without difficulty. Feeding well. Denies chest pain, shortness of breath, calf pain/swelling, fevers, chills, lightheadedness. Objective Data Objective Data Vital Signs: Vital Signs Temp Pulse Resp BP Pulse Ox O2 Del Method 98.4 F 91 16 119/73 96 Room Air 08/14/22 04:00 08/14/22 04:00 08/14/22 04:00 08/14/22 04:00 08/14/22 04:00 08/14/22 04:00 Oxygen Delivery Method Room Air Weight: 194 lb 3.2 oz Body Mass Index (BMI) 29.5 Intake & Output: Intake and Output for Last 24 Hours 08/12/22 08/13/22 08/14/22 23:59 23:59 23:59 Intake Total 1246.27 / 1246.27 250 / 250 Output Total 350 / 350 900 / 900 Balance 896.27 / 896.27 -650 / -650 Lab / Micro Data Attestation: I reviewed the patient's lab results. Result Diagrams: 08/13/22 21:35 Labs: Laboratory Results - last 24 hr 08/13/22 21:35: WBC 11.1 H, RBC 4.61, Hgb 14.5, Hct 41.2, MCV 89.4, MCH 31.5, MCHC 35.2, RDW Std Deviation 44.2 H, RDW Coeff of Costa 13.7, Plt Count 166, MPV 9.4, Immature Gran % (Auto) 0.800, Neut % (Auto) 76.7 H, Lymph % (Auto) 13.7 L, Gibson % (Auto) 8.1, Eos % (Auto) 0.5, Baso % (Auto) 0.2, Absolute Neuts (auto) 8.5 H, Absolute Lymphs (auto) 1.52, Nucleated RBC % 0 08/13/22 21:35: Blood Type B POSITIVE, Antibody Screen NEGATIVE 08/13/22 21:35: Syphilis Total Ab Non-reactive ROS Constitutional Constitutional: Reports systems reviewed and no addt'l complaints, except as documented; Denies anorexia or headache(s) Cardiovascular Cardiovascular: Reports systems reviewed and no addt'l complaints, except as documented; Denies dizziness, dyspnea, nausea or tachypnea Respiratory/Chest Respiratory/Chest: Reports systems reviewed and no addt'l complaints, except as documented; Denies cough, dyspnea, shortness of breath at rest or tachypnea Gastrointestinal Gastrointestinal: Reports systems reviewed and no addt'l complaints, except as documented; Denies abdominal pain, constipation or nausea Genitourinary Genitourinary: Reports systems reviewed and no addt'l complaints, except as documented; Denies burning urination, difficulty urinating, dysuria, urinary frequency or urinary incontinence Musculoskeletal Musculoskeletal: Reports systems reviewed and no addt'l complaints, except as documented Integumentary Integumentary: Reports systems reviewed and no addt'l complaints, except as documented Neurologic Neurologic: Reports systems reviewed and no addt'l complaints, except as documented; Denies abnormal speech, dizziness or headache(s) Psychiatric Psychiatric: Reports systems reviewed and no addt'l complaints, except as documented Endocrine Endocrinology: Reports systems reviewed and no addt'l complaints, except as documented Hematologic/Lymphatic Hematologic/Lymphatic: Reports systems reviewed and no addt'l complaints, except as documented Physical Exam Const alert, oriented x3 and no apparent distress Neck full ROM Resp normal respiratory effort, normal air movement and no retractions Effort and Inspection: able to speak in complete sentences and symmetric chest movement GI soft to palpation Bladder / Kidney Exam: bladder normal to palpation Uterus Palpation: uterus fundus firm Extremity normal to inspection and full ROM Psych mental status grossly normal, thought process normal and cooperative Assessment & Plan (1) Vaginal delivery: COMMENT: KW IAL 38.5 SROM Boy PLAN: s/p PPD # 1 1. routine post delivery care 2. breast feeding- support given 3. rh positive 4. rubella immune (2) : QUALIFIERS: Weeks of gestation: 38 weeks Qualified Code(s): Z3A.38 - 38 weeks gestation of COMMENT: GBS neg. Nl anatomy US. declines genetic & carrier ntd testing (3) Supervision of high risk , antepartum: COMMENT: PRR , DEVIKA 08/23/22 boy, CARMENCITA Choi Jose (4) demise: COMMENT: demise at 15w demise at 22w (5) Cervical insufficiency in , antepartum: COMMENT: s/p cerclage removal 36 weeks Charges/Coding Multi Select Codes Urinary/Genital Urinary/Genital CPT Codes: No Charge
[2022-08-14] MEDS: Ibuprofen 600 MG Tablet PO (08:00)
[2022-08-14] MEDS: Acetaminophen 500 MG Tablet 1000 MG PO (13:38)
[2022-08-14] MEDS: Prenatal Vits Tablet 1 TABLET PO (13:38)
--- NOTE | 2022-08-14 14:53 | CM.UR ---
Addendum entered by Lawrence Jernigan 08/15/22 08:23: Note amended to include referral due to social work identification and sw informed by nursing staff of prior losses. Lawrence Jernigan, POLISHING MACHINE OPERATOR, CHISEL TRIMMER Original Note: Social Work Assessment Labor and Delivery Unit Patient Address: [address] [place] [address] [place] [address] Phone number: [phone] Date of Referral: none Time of Referral:? none Referred By: none Date of Intervention: ?08/14/22? Time of Intervention:? 0 Reason for Referral:? History obtained from: medical records and mother of baby (MOB)??? Household composition: Residing at home is MOB, RANDI and older child, Steph (12/12/2020) Patient's parent/guardian status:?MOB states that parents got in 2019. Family is [facility]. MOB experienced a still born on 10/17/2018 at 15 weeks gestation, and another still born loss on 07/15/2019 at 22 weeks gestation. ? Medical History: MOB is , baby was born via vaginal delivery. MOB received routine are with [facility]. No other pertinent medical information aside from two losses. BabyCalderon was born term weighing 7lb 7oz, his apgars were 8 and 9. ? Educational Status:? Both parents completed the 8th grade. No advanced education. 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 MOB stays at home Infant Supplies:?? MOB states that they do have a safe sleep space for baby at home, they have a basinett. MOB states they also have a car seat. MOB states they have all other baby necessities such as clothes, diapers and wipes. Childcare/Caregiver(s):? MOB will be the primary caregiver to baby. Paternal aunt will be staying with the family once they are discharged to home to help provide care and assist with daily pharmacy intake coordinator and responsibilities. While MOB is admitted FOB and maternal grandma are tending to [place]. Transportation:?? MOB states that they have a commercial collections driver that provides them with reliable transportation when required to attend medical appointments. Programs/Agencies Involved: ???None at this time. Children Services/Legal Issues:??? None disclosed at this time. Behavioral Health Issues: ??Mental Health History:??MOB denies mental health history for herself and FOB. Sw discussed and educated MOB on signs and symptoms of baby blues and post depression. Sw assessed MOB for symptoms of both, and asked whether she experienced symptoms in the past following the loss she has experienced. MOB stated that she was definitely sad following both of the losses, however she does not believe she experienced baby blues or PPD. ?MOB denies domestic violence and reports that she is safe at home. MOB states that FOB is a good support for her. Substance Use History:?MOB denies? Family History:?NO family history of substance use. ?? Drug Screens: ?None completed ? Family/Social Stressors:? None reported at this time. Support Systems: MOB reports that her family and paternal family are all very supportive and involved. Depression/Shaken Baby/Safe Sleeping: Sw discussed signs and symptoms of baby blues and post depression. MOB denies history of or current symptoms. Sw educated MOB to never shake a baby and ABC's of safe sleep. MOB expressed understanding. ASSESSMENT:MOB was active in conversation during assessment. Baby was asleep in crib by bed, MOB stated that she feels she is bonding with him well. MOB did not have any needs or requests at this time. Sw provided support and encouraged MOB to reach out to sw if any questions or needs arose. .? PLAN:? ?No other services requested or indicated. Lawrence Jernigan, POLISHING MACHINE OPERATOR, CHISEL TRIMMER
[2022-08-15] MEDS: Acetaminophen 500 MG Tablet 1000 MG PO (00:22)
[2022-08-15 01:53] VITALS: BP 116/68; PULSE 71; RESP 16; TEMP 36.6; O2SAT 96
--- NOTE | 2022-08-15 07:28 | PN.OBGYN_ITS ---
Subjective Subjective Patient doing well without complaints. Tolerating PO. Ambulating and voiding without difficulty. Feeding well. Denies chest pain, shortness of breath, calf pain/swelling, fevers, chills, lightheadedness. Objective Data Objective Data Vital Signs: Vital Signs Temp Pulse Resp BP Pulse Ox O2 Del Method 97.8 F 71 16 116/68 96 Room Air 08/15/22 01:53 08/15/22 01:53 08/15/22 01:53 08/15/22 01:53 08/15/22 01:53 08/15/22 01:53 Oxygen Delivery Method Room Air Weight: 194 lb 3.2 oz Body Mass Index (BMI) 29.5 Intake & Output: Intake and Output for Last 24 Hours 08/13/22 08/14/22 08/15/22 23:59 23:59 23:59 Intake Total 1246.27 / 1246.27 250 / 250 Output Total 350 / 350 1500 / 1500 Balance 896.27 / 896.27 -1250 / -1250 Lab / Micro Data Attestation: I reviewed the patient's lab results. Result Diagrams: 08/13/22 21:35 ROS Constitutional Constitutional: Reports systems reviewed and no addt'l complaints, except as documented; Denies anorexia or headache(s) Cardiovascular Cardiovascular: Reports systems reviewed and no addt'l complaints, except as documented; Denies dizziness, dyspnea, nausea or tachypnea Respiratory/Chest Respiratory/Chest: Reports systems reviewed and no addt'l complaints, except as documented; Denies cough, dyspnea, shortness of breath at rest or tachypnea Gastrointestinal Gastrointestinal: Reports systems reviewed and no addt'l complaints, except as documented; Denies abdominal pain, constipation or nausea Genitourinary Genitourinary: Reports systems reviewed and no addt'l complaints, except as documented; Denies burning urination, difficulty urinating, dysuria, urinary mylene quency or urinary incontinence Musculoskeletal Musculoskeletal: Reports systems reviewed and no addt'l complaints, except as documented Integumentary Integumentary: Reports systems reviewed and no addt'l complaints, except as documented Neurologic Neurologic: Reports systems reviewed and no addt'l complaints, except as documented; Denies abnormal speech, dizziness or headache(s) Psychiatric Psychiatric: Reports systems reviewed and no addt'l complaints, except as documented Endocrine Endocrinology: Reports systems reviewed and no addt'l complaints, except as documented Hematologic/Lymphatic Hematologic/Lymphatic: Reports systems reviewed and no addt'l complaints, except as documented Physical Exam Const alert, oriented x3 and no apparent distress Neck full ROM Resp normal respiratory effort, normal air movement and no retractions Effort and Inspection: able to speak in complete sentences and symmetric chest movement GI soft to palpation Bladder / Kidney Exam: bladder normal to palpation Uterus Palpation: uterus fundus firm Extremity normal to inspection and full ROM Psych mental status grossly normal, thought process normal and cooperative Assessment & Plan (1) Vaginal delivery: COMMENT: KW IAL 38.5 SROM José Manuel PLAN: s/p PPD # 2 1. routine post delivery care 2. breast feeding- support given 3. rh positive 4. rubella immune 5. D/C home Charges/Coding Multi Select Codes Urinary/Genital Urinary/Genital CPT Codes: No Charge
--- NOTE | 2022-08-15 07:30 | DCINST_ITS ---
Discharge Instructions Diet Discharge Diet: No restrictions Activity May resume sexual activity in: 6-8 weeks Dressing / Incision Call your doctor if you observe: Fever of 101 or Higher, Coldness, Increased Pain, Numbness or Tingling, Change in Color, Inability to urinate, Inability to have a bowel movement, Using more than 1 pad per hour, Shortness of breath, Dizziness, Fainting spells, Swelling in the ankles, Chest pain, Increased palpitations (irregular heartbeat), Calf discomfort and Uncontrolled pain Follow Up Care Please Follow Up With: Osiris Butts CNM Test Results: Test results from this visit will be discussed in further detail at your follow- up appointment, if applicable. Discharge Plan Admission Admit Date/Time: 08/13/22 21:25 Attending Provider: Osiris Butts Primary Care Provider: [facility] Jessica Kahn Discharge Orders/Prescriptions Prescriptions: No Action PNV-DHA 27 mg iron-1 mg -300 mg capsule PO [facility] - Disposition Disposition (needs filled in before D/C Order can be placed): Home, Self Care
[2022-08-15 07:45] VITALS: BP 112/75; PULSE 83; RESP 16; TEMP 36.5; O2SAT 96
--- NOTE | 2022-08-15 08:10 | NURSING ---
report given to Marcellus Ramesh RN who is assuming care of pt at this time
== END 2022-08-15 10:00 | disposition home or self-care (01) | DRG 805 ==
LOC: WPOUT 21:30 → WP 23:54
PROVIDERS: Admitting Provider Advanced Practice Midwife; Referring Provider Advanced Practice Midwife; Visit Provider Advanced Practice Midwife
DX: O42.92 Full-term premature rupture of membranes, unspecified as to length of time between rupture and onset of labor (principal); Z37.0 Single live birth; O34.33 Maternal care for cervical incompetence, third trimester; Z3A.38 38 weeks gestation of pregnancy; Z87.59 Personal history of other complications of pregnancy, childbirth and the puerperium
CPT/HCPCS: 59025; 59050; 85025; 86780; 86850; 86900; 86901; 99221; J7120; G0378

== ENCOUNTER → 2023-03-06 | Outpatient (CLI) | payer OTHER, SELFPAY ==
--- OUTSIDE RECORDS SUMMARY | 2023-03-06 18:33 | XMS RPT_ITS | CCD ---
Author Name Unknown Address [address] [place] [address] Organization [facility] Care Team Providers Care Blocker And Cutter Contact Lens Name Role Phone ROMY MARIA Referring Unavailabl e DM, FLORINA Attending Unavailable CECILIA, MELANY Primary Care Unavailable ROMY MARIA Referring Unavailabl e DM, FLORINA Attending Unavailable CECILIA, MELANY Primary Care Unavailable CECILIA, MELANY Primary Care Unavailable GRACIE TAVARES Attending Unavailable ROMY MARIA Referring Unavailabl e DM, FLORINA Admitting Unavailable DM, FLORINA Attending Unavailable DM, FLORINA Admitting Unavailable Problems Problem Classification Problem Date Documented Date Episodic/Chronic Other complications of (2 sources) Supervision of with other poor reproductive or obstetric history, unspecified trimester; Translations: [Supervision of with other poor reproductive or obstetric history, unspecified trimester] Onset: 03-08-2022 Episodic Residual codes; unclassified (2 sources) 16 weeks gestation of ; Translations: [16 weeks gestation of ] Onset: 03-08-2022 Episodic Residual codes; unclassified (2 sources) Other specified postprocedural states; Translations: [Other specified postprocedural states] Onset: 03-08-2022 Episodic Results Test Name Value Interpretation Reference Range Facil ity Encounters Encounter Date Encounter Type Care Provider Facility Start: 04-03-2022 End: 04-03-2022 ambulatory MELANY [facility] Start: 03-08-2022 ambulatory FLORINA DM [facility] Start: 03-08-2022 End: 03-08-2022 ambulatory FLORINA DM [facility] Start: 03-07-2022 End: 03-07-2022 ambulatory ROMY [facility] Payers Date Payer Category Payer Unknown [id number] 1995 Unknown [id number] 1995 Unknown [id number] 1995 Unknown [id number] Unknown [id number] Clinical Note 03-08-2022 Note Date & Type Note Facility 03-08-2022 Note @LOGOIMAGE@ Cerclage Operative Note Patient: Briana Quiroz : 1995 Date of Procedure: 03/08/22 Principal Problem: History of cerclage, currently PREOPERATIVE DIAGNOSES: 1. @ 16w0d 2. Cervical insufficiency 3. Partial placenta previa POSTOPERATIVE DIAGNOSES: 1. Same PROCEDURE: Reynolds cerclage SURGEON: Dr. Florina Gilbert ASST: Dr. Miike Marie, ANESTHESIA: spinal FLUIDS: 400 ml crystalloid URINE: 100 ml EBL: 5 ml DRAINS: None SPECIMENS: None SPECIAL MEDICATIONS: None COMPLICATIONS: None CONDITION: Good, transferred to post anesthesia recovery FINDINGS: Normal appearing cervix with internal cervical os closed. Multiparous cervix with external os open INDICATION AND CONSENT: 16w0d presented for history indicated cerclage. She was consented for the procedure, understood the risks and desired to proceed. DETAILS OF PROCEDURE: Patient was taken to the operating room where a spinal was placed and found to be adequate. She was placed in the dorsal lithotomy position with yellofin stirrups. Vagina was prepped she was draped in normal sterile fashion. A timeout was performed. A weighted swan neck speculum was placed in the posterior vaginal fornix. A right angle retractor was used to retract the anterior vaginal wall. The anterior and posterior aspects of the cervix were grasped with ring forceps. These ring forceps were then used to manipulate the cervix for visualization. The bladder reflection was visualized. Using a 3-0 mm Mersilene suture, the needle was passed through the cervical stroma from 12 o'clock to 10 o' clock, 8 o' clock to 6 o' clock, 6 o' clock to 4 o' clock and 2 o' clock back up to 12 o' clock. The stitch was then tied down to the cervix. The cervix was examined digitally and no suture was felt inside the cervical os. She was noted to be 0cm dilated at this time. The knot was then tied down tightly and 6 knots were tied. A 2-0 blue silk suture was tied to the Mersilene ends for better future visualization for removal in the future. All blood was cleared from the vagina, the cervix was inspected and found to be hemostatic. The instruments were removed from the vagina. Bladder was emptied prior to and after the procedure with clear urine noted. Sponge, needle and instrument counts were correct times two. Patient tolerated the procedure well, and was transferred to the recovery room in satisfactory stable condition. Mikie Marie DO 03/08/2022, 12:57 PM I was present and scrubbed for the entire procedure Florina Gilbert MD [facility] Clinical Note 03-08-2022 Note Date & Type Note Facility 03-08-2022 Note Patient: Briana ivey Procedure Summary Date: 03/08/22 Room / Location: [address] Labor and Delivery Anesthesia Start: 1203 Anesthesia Stop: 1248 Procedure: CERCLAGE OF CERVIX DURING VAGINAL (Cervix) Diagnosis: 16 weeks gestation of (Cercalge) Surgeons: Florina Gilbert MD Responsible Provider: Julian Capellan MD Anesthesia Type: spinal ASA Status: 2 Anesthesia Type: spinal Vitals Value Taken Time BP 120/74 03/08/22 1247 Temp 37.2 ?C (98.9 ?F) 03/08/22 1247 Pulse 77 03/08/22 1249 Resp 16 03/08/22 1247 SpO2 100 % 03/08/22 1247 Anesthesia Post Evaluation No notable events documented. Patient can be discharged once all PACU criteria has been met. [facility] Clinical Note 03-08-2022 Note Date & Type Note Facility 03-08-2022 Note Patient: Briana Valladares tler Procedure Summary Date: 03/08/22 Room / Location: [address] Labor and Delivery Anesthesia Start: 1203 Anesthesia Stop: 1248 Procedure: CERCLAGE OF CERVIX DURING VAGINAL (Cervix) Diagnosis: 16 weeks gestation of (Cercalge) Surgeons: Florina Gilbert MD Responsible Provider: Julian Capellan MD Anesthesia Type: spinal ASA Status: 2 Anesthesia Type: spinal Vitals Value Taken Time BP 120/74 03/08/22 1247 Temp 37.2 ?C (98.9 ?F) 03/08/22 1247 Pulse 77 03/08/22 1248 Resp 16 03/08/22 1247 SpO2 100 % 03/08/22 1247 Anesthesia Post Evaluation Patient location during evaluation: PACU Patient participation: complete - patient participated Level of consciousness: awake and alert Pain score: 0 Pain management: satisfactory to patient Multimodal analgesia pain management approach Airway patency: patent Two or more strategies used to mitigate risk of obstructive sleep apnea Cardiovascular status: acceptable and hemodynamically stable Respiratory status: acceptable Hydration status: acceptable No notable events documented. Anesthesia Post Evaluation I completed my handoff to the receiving clinician during which we: 1. Identified the patient 2. Identified the responsible provider 3. Reviewed the pertinent medical history 4. Discussed the surgical course 5. Reviewed intra-op anesthesia management and issues during anesthesia 6. Set expectations for post-procedure period 7. Allowed opportunity for questions and acknowledgement of understanding. [facility] Clinical Note 03-08-2022 Note Date & Type Note Facility 03-08-2022 Note Spinal Block Time Out: 03/08/2022 12:05 PM Patient location during procedure: OB Start time: 03/08/2022 12:08 PM End time: 03/08/2022 12:11 PM Reason for block: primary anesthetic Staffing Performed: BOOKMOBILE DRIVER Resident/BOOKMOBILE DRIVER: DAVE Wood CRNA Preanesthetic Checklist Completed: patient identified, IV checked, site marked, risks and benefits discussed, surgical consent, monitors and equipment checked, pre-op evaluation and timeout performed Spinal Block Patient position: sitting Prep: ChloraPrep Sterility prep: cap, gloves, hand hygiene and mask Sedation level: no sedation Patient monitoring: continuous pulse oximetry Approach: midline Location: L3-4 Injection technique: single-shot Needle Needle type: pencil-tip Needle gauge: 24 G Needle insertion depth: 5 cm Assessment Sensory level: T6 Block outcome: block to be assessed in the OR Number of attempts: 1 Procedure assessment: patient tolerated procedure well with no immediate complications Additional Notes Skin/subcutaneous: 3cc 1% lidocaine [facility] Clinical Note 03-08-2022 Note Date & Type Note Facility 03-08-2022 Note Patient: Briana Valladares tlesamson Procedure Information Date/Time: 03/08/22 1200 Procedure: CERCLAGE OF CERVIX DURING VAGINAL (Cervix) Location: [address] Labor and Delivery Surgeons: Florina Gilbert MD Relevant Problems Anesthesia (+) History of IUFD (+) Hx of delivery, currently Clinical information reviewed: Allergies Meds Med Hx Physical Exam Airway Mallampati: II TM distance: >3 FB Neck ROM: full Mouth Open: normal Cardiovascular Dental (+) Upper Partials Pulmonary Abdominal Anesthesia Plan ASA 2 spinal The patient is not a current smoker. Patient was not previously instructed to abstain from smoking on day of procedure. Patient did not smoke on day of procedure. Education provided regarding risk of obstructive sleep apnea. (no pat did not provide jean-pierre info) Anesthetic plan and risks discussed with patient. Use of blood products discussed with who consented to blood products. patient is NPO Additional Equipment Requests [employer] [facility] Clinical Note 03-08-2022 Note Date & Type Note Facility 03-08-2022 Note Attestation signed by Florina Gilbert MD at 03/08/2022 5:32 PM I independently saw and evaluated the patient. I agree with the findings and plan of care as documented in the resident's note. 27 yr old at 16 0/7 GA with the following: History of cervical insufficiency for scheduled history indicated cerclage today. The risks benefits and alternatives of cerclage were addressed and questions were answered. She was counseled on the risks of bleeding, labor stimulation, risk of injury to surrounding structures: bladder, bowel and vagina, and risk of anesthesia. There are also risks for infection, risk that is will not work may need to be redone if concerns. There is no guarantee of a normal outcome with a cerclage placement and this was also addressed. We talked about the goal being a survivor given her current gestational age and we also discussed that prematurity may not be avoided and still at risk for PROM and early delivery with cerclage placement. 2. Partial placental previa no vaginal bleeding I spent 20 minutes in the visit today on the floor reviewing the chart, discussing the case with the residency staff and nursing Florina Gilbert MD Department of Maternal Medicine History and Physical CHIEF COMPLAINT: Cerclage placement HISTORY OF PRESENT ILLNESS: The patient is a 27 y.o. female at 16w0d. OB History 1 Para Term AB Living SAB IAB Ectopic Multiple Live Births Patient presents with a chief complaint as above and is being admitted for cerclage placement. Patient has a hx of two second trimester losses followed by a successful term in her G3 with cerclage in place. Transport: No Prior Hospitalizations: No Estimated Due Date: Estimated Date of Delivery: 08/23/22 CARE: Complications: See Below PAST OB HISTORY: OB History 4 Para 2 Term 1 1 AB 1 Living 1 SAB IAB Ectopic Multiple Live Births Detailed OB History SAB @ 15w0d requiring D&C 10/17/18 @ 22w0d 06/2019 Term @ 39w0d, 12/12/20, 2835g, had cerclage in place that Current Past Medical History: No past medical history on file. Past Surgical History: Past Surgical History: Procedure Laterality Date DILATION AND CURETTAGE OF UTERUS 2019 Allergies: Patient has no known allergies. Social History: Social History Socioeconomic History Marital status: Spouse name: Not on file Number of children: Not on file Years of education: Not on file Highest education level: Not on file Occupational History Not on file Tobacco Use Smoking status: Never Smokeless tobacco: Never Substance and Sexual Activity Alcohol use: Never Drug use: Never Sexual activity: Not on file Other Topics Concern Not on file Social History Narrative Not on file Social Determinants of Health Financial Resource Strain: Not on file Food Insecurity: Not on file Transportation Needs: Not on file Physical Activity: Not on file Stress: Not on file Social Connections: Not on file Intimate Partner Violence: Not on file Housing Stability: Not on file Family History: No family history on file. Medications Prior to Admission: No medications prior to admission. REVIEW OF SYSTEMS: Review of Systems Labs: CBC: No results found for: WBC, RBC, HGB, HCT, MCV, MCH, MCHC, RDW, PLT, MPV PHYSICAL EXAM: There were no vitals filed for this visit. General appearance: awake, alert, cooperative, no apparent distress, and appears stated age Neurologic: Awake, alert, oriented to name, place and time. Lungs: No increased work of breathing, good air exchange Abdomen: Soft, non tender, gravid, consistent with her gestational age Sterile Speculum Exam: Membranes: Intact HSV Lesions: not applicable Cervix: Visually closed Contraction frequency: None genetics: CYSTIC FIBROSIS: N/A SMA: N/A FRAGILE X: N/A SEQUENTIAL SCREEN: N/A CELL FREE DNA: N/A AMNIOCENTESIS: N/A Hx of PTL: Celestone given previously: Yes Cervical Length: 34.0 mm on 03/07/22 ASSESSMENT AND PLAN: LABOR DELIVERY ??? SCD's ONLY (labor through ambulation) SCD's PLUS Prophylactic Anticoagulation until discharge SCD's PLUS Prophylactic Anticoagulation for 6 weeks SCD's PLUS Therapeutic Anticoagulation for 6 weeks Vaginal Delivery [] BMI ? 40 kg/m2 Delivery All patients Vaginal Delivery [] BMI ? 40 kg/m2 AND [] Antepartum hospitalization ? 72 hours within the past month Delivery 1 Major Risk Factor: [] BMI ? 35 kg/m2 [] Low Risk Thrombophilia [] PPH+RBCs, IR, or operation [] Infection+Antibiotics [ (more content not included)... [facility] Summary Purpose Family History No Family History Records FoundNo Family History Records FoundNo Family History Records Found Advance Directives No Advanced Directives Records FoundNo Advanced Directives Records FoundNo Advanced Directives Records Found Additional Source Comments INFORMATION SOURCE (unrecogn ized section and content) DATE CREATED AUTHOR AUTHOR'S ORGANIZ ATION 04/03/2022 [facility] DATE CREATED AUTHOR AUTHOR'S ORGANIZ ATION 05/15/2022 [facility] FOR RECORDS PERTAINING TO PATIENTS WHO ARE OR HAVE BEEN ENROLLED IN A CHEMICAL DEPENDENCY/SUBSTANCEABUSE PROGRAM, SOME INFORMATION MAY BE OMITTED. This clinical summary was aggregated from multiple sources. Caution should be exercised in using it in the provision of clinical care. This summary normalizes information from multiple sources, and as a consequence, information in this document may materially change the coding, format and clinical context of patient data. In addition, data may be omitted in some cases. CLINICAL DECISIONS SHOULD BE BASED ON THE PRIMARY CLINICAL RECORDS. [facility] [employer] [facility]. provides no warranty or guarantee of the accuracy or completeness of information in this document.
[2023-03-11 15:18] LABS: HPV Reflexed? NOT INDICATED
== END | disposition home or self-care (01) ==
PROVIDERS: Visit Provider Registered Nurse
DX: Z12.4 Encounter for screening for malignant neoplasm of cervix (principal)
CPT/HCPCS: 88175; G0145

== ENCOUNTER 2023-03-08 09:51 | Day surgery (SDC) | payer SELFPAY, OTHER ==
--- NOTE | 2023-03-08 | POC_PTH ---
PATHOLOGY RESULTS PATIENT: BRIANA QUIRZO [place] [facility] [place][id number] AGE/SX: 28/F ROOM: RE03/08/[address]: Dr. Sera Hackett DO : 1995 BED: DIS: 03/08/2023 SPEC #: [id number] RECD: 03/11/23 07:35 STATUS: JANETTE JOSIAS #: [id number] COLT: 03/08/23 00:[address]: Sera Hackett DEPT: SURGICAL PATHOLOGY RECD BY: Angelina Mai ENTERED: 03/11/23 07:36 SP TYPE: PROD CONC OTHR DR: Florina Rausch, GOLF COURSE STARTER-Peggy Tissues: Product of conception, NOS Procedures: Surgery Specimen Level IV HEADER OPERATION: Suction D & C PRE-OP DIAGNOSIS: Missed TISSUE SUBMITTED: Products of conception MICROSCOPIC DIAGNOSIS Endometrium, curettage: Chorionic villi, decidualized stroma, trophoblastic cells and rare parts (products of conception). AM:mitchel 03/12/2023 MICROSCOPIC DESCRIPTION Slides are reviewed. GROSS DESCRIPTION Received in fixative is one container labeled with the patient's name and designated products of conception. The specimen consists of multiple fragments of hemorrhagic soft tissue mixed with placental tissue that in aggregate measure 9.0 x 9.0 x 2.5 cm. tissue is not identified. Hand Packer tissue is submitted in two cassettes. / SJ:mitchel 03/11/2023 TC:5 CPT: 81747
--- OUTSIDE RECORDS SUMMARY | 2023-03-08 10:28 | XMS RPT_ITS | CCD ---
Author Name Unknown Address [address] [place] [address] Organization [facility] Care Team Providers Care Playground Official Name Role Phone ROMY MARIA Referring Unavailabl [...] Hos pital Start: 03-08-2022 ambulatory FLORINA DM [facility] Start: 03-08-2022 End: 03-08-2022 ambulatory FLORINA DM [facility] Start: 03-07-2022 End: 03-07-2022 ambulatory [facility] Payers Date Payer Category Payer Unknown [id number] 1995 Unknown [id number] 1996 Unknown [id number] 1996 Unknown [id number] Unknown [id number] Clinical Note 03-08-2022 Note Date & Type Note Facility 03-08-2022 Note @LOGOIMAGE@ [facility] Operative Note Patient: Briana Quiroz : 1995 Date of Procedure: 03/08/22 Principal Problem: History of cerclage, currently PREOPERATIVE DIAGNOSES: 1. @ 16w0d 2. Cervical insufficiency 3. Partial placenta previa POSTOPERATIVE DIAGNOSES: 1. Same PROCEDURE: Reynolds cerclage SURGEON: Dr. Florina Gilbert ASST: Dr. Mikie Marie, ANESTHESIA: spinal FLUIDS: 400 ml crystalloid [...] for the entire procedure Florina Gilbert MD [facility] Clinical Note 03-08-2022 Note Date & Type Note Facility 03-08-2022 Note Patient: Briana ivey Procedure Summary Date: 03/08/22 Room / Location: [address] Labor and Delivery Anesthesia Start: 1203 [...] once all PACU criteria has been met. [facility] Clinical Note 03-08-2022 Note Date & Type Note Facility 03-08-2022 Note Patient: Briana Valladares tler Procedure Summary Date: 03/08/22 Room / Location: [address] Labor and Delivery Anesthesia Start: 1203 [...] opportunity for questions and acknowledgement of understanding. [facility] Clinical Note 03-08-2022 Note Date & Type Note Facility 03-08-2022 Note Spinal Block Time Out: 03/08/2022 12:05 PM Patient location during procedure: OB Start time: 03/08/2022 12:08 PM End time: 03/08/2022 12:11 PM Reason for block: primary anesthetic Staffing Performed: SKATESMAN Resident/SKATESMAN: DAVE Wood CRNA Preanesthetic Checklist Completed: patient [...] complications Additional Notes Skin/subcutaneous: 3cc 1% lidocaine [facility] Clinical Note 03-08-2022 Note Date & Type Note Facility 03-08-2022 Note Patient: Briana Valladares tlesamson Procedure Information Date/Time: 03/08/22 1200 Procedure: CERCLAGE OF CERVIX DURING VAGINAL (Cervix) Location: [address] Labor and Delivery Surgeons: Florina Gilbert [...] products. patient is NPO Additional Equipment Requests Project Travel [facility] Clinical Note 03-08-2022 Note Date & [...] [] Infection+Antibiotics [ (more content not included)... [facility] Summary Purpose Family History No Family History Records FoundNo Family History Records FoundNo Family History Records Found Advance Directives No Advanced Directives Records FoundNo Advanced Directives Records FoundNo Advanced Directives Records Found Additional Source Comments INFORMATION SOURCE (unrecogn ized section and content) DATE CREATED AUTHOR AUTHOR'S ORGANIZ ATION 04/03/2022 [facility] DATE CREATED AUTHOR AUTHOR'S ORGANIZ ATION 05/15/2022 [facility] FOR RECORDS PERTAINING TO PATIENTS WHO ARE [...] BE BASED ON THE PRIMARY CLINICAL RECORDS. [facility]. provides no warranty or guarantee of the accuracy or completeness of information in this document.
[2023-03-08 10:29] VITALS: BP 103/59; PULSE 82; RESP 16; TEMP 36.7; O2SAT 99; BMI 27.1
[2023-03-08] MEDS: Lactated Ringers 1,000 ML 15 ML IV (10:36)
[2023-03-08] MEDS: Doxycycline 100 MG CAPSULE PO (10:38)
[2023-03-08 10:44] LABS: Hemoglobin 14.7 g/dL (12.0-15.0); Mean Corp Hgb Conc 34.2 g/dL (32-36); Mean Corpuscular Hgb 30.2 pg (27.0-32.0); Mean Corpuscular Volume 88.3 fL (81-99); Mean Platelet Vol. 9.9 fl (6.2-12.0); Platelet Count 205 K/mm3 (150-450); RBC Distribution Width CV 12.8 % (11.6-14.6); RBC Distribution Width SD 41.4 fl (35.1-43.9); Red Blood Count 4.87 M/mm3 (4.2-5.4); White Blood Count 6.6 K/mm3 (4.4-11.0)
--- NOTE | 2023-03-08 11:56 | PCM.HP.BLA ---
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: No Is patient in pain?: No Allergies No Known Allergies Allergy (Verified 03/06/23 12:50) Medications multivitamin no.47-iron fum 27 mg-folate no.1 1 mg-dha 300 mg capsule (PNV-DHA) cap PO 01/30/22 [History Confirmed 02/26/23] Last Menstrual Period: 12/11/22 Zika: Zika virus screening: Negative : No PFSH PFSH Medical History (Updated 03/06/23 @ 13:45 by Cami Gurrola CNM) Cervical incompetence Cervical insufficiency in , antepartum demise History of pre-term labor Vaginal delivery Vaginal delivery Surgical History (Updated 02/26/23 @ 10:13 by Peri Beltran) H/O dilation and curettage Family History Grandmother DiabetesAunt Cervical cancer, Onset Age: 37 MaternalSister Heart murmurBrother Heart murmur Social History (Updated 02/26/23 @ 09:47 by Peri Beltran) adopted: No household members: spouse and children housing: house number of children: 2 current occupational status: unemployed current occupation: [employer] current occupational exposures/hazards: No pets and animals: No history of recent travel: No sexually active: Yes Smoking Status: Never smoker alcohol intake: never substance use type: does not use well-balanced diet: about half the time caffeine: Yes Type: coffee Number of servings: 1 eating out: rarely or never during the past year weight has: increased > 10 lbs what type of physical activity do you participate in: none daniel/worship: Shawn seatbelt use: always do you feel safe at home: Yes 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 Date Name GA/Weeks Outcome Route Bth Weight Gen Labor Lgth Anesthesia Del Locatn Provider FOB 10/17/18 male 15 07/15/19 male 22 live - 12/12/20 Steph 39 live - full term 6lbs 4oz Female [facility] Dr. Funk 08/14/22 Calderon 38 live - full term Male [facility] Chintan Butts Delivery Date: 10/17/18 Last Updated by: Steph Vargas D&C Delivery Date: 07/15/19 Last Updated by: Amanda Funk MD cervical insufficiency Delivery Date: 12/12/20 Last Updated by: Steph Vargas Cervical insuff-cerclage, Chelita Delivery Date: 08/14/22 Last Updated by: Peri Beltran IOL SROM intact, cerclage HPI New OB, LMP 12/11/22 Details: BRIANA QUIROZ is a 28 year old who presents for a suction D&C procedure due to missed at 9 weeks. OB Visit DEVIKA Calculator Estimated Delivery Date Method Current WG Current Estimate 09/11/23 LMP (Uncertain) 13w 0d Comments: HIV: Urine Culture: Sequential Screen: NIPT Screen: Estimated Due Date: 09/17/23 Expected Delivery Route/Plan Labor Preferences- CB/BF classes: [] labor support person: [] labor intervention preferences: [] pain management options preferred: [] cut cord/dad catch: [] : [] PP control planned: [] discussed possible routes of delivery and associated risks: [] special requests: [] Specific Issue/Plans Covid status: [] Flu vaccine: [] Tdap vaccine: [] Rhogam: [] LARC form signed: [] Problem list reviewed and updated with the most current plan of care details and appropriate orders placed. Relevant counseling for the gestational age provided. Continue routine care and follow up unless otherwise noted in visit notes/problem list details Initial Weight: 181 lb Date <del>?</del> EGA Weight BP Urine Prot <del>?</del> Glucose FHR FuHt Pres Dilation <del>?</del> Effaced St Visit Note 03/06/23<del>?</del> 13w 0d 181 lb 4 oz(+4 oz) 117/72 <del>?</del> <del>?</del> LC- CRL 21mm. no FHR. consented for D&C. considering ANORA genetics. no vb since 3 weeks ago. LC- CRL 21mm. no FHR. consented for D&C. considering ANORA genetics. no vb since 3 weeks ago. 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 reviewed with JV, rescanned who agreed with assessment. LC- CRL 21mm. no FHR. consented for D&C. considering ANORA genetics. no vb since 3 weeks ago. desires to wait until saturday as she is hosting [employer] this . reviewed with JV, rescanned who agreed with assessment, Dr. Hackett consented for D&C. infection and bleeding precautions reviewed incase. Menstrual History Last Menstrual Period: 12/11/22 Antepartum Record Genetic Screening: Congenital Heart Defect: Patient (3 of siblings have heart murmur), Neural Tube Defect: Other, Hemoglobinopathy Or Carrier: Other, Cystic Fibrosis: Other, Chromosome Abnormality: Other, Billy-Sachs: Other, Hemophilia: Other, Intellectual Disability/Autism: Other, Recurrent Loss/Stillbirth: Patient (2 miscarriages), Other Structural Defect: Other, Other Genetic Disease: Other and Maternal Metabolic Disorder: Other Infection History: Live with someone with TB or Exposed to TB: No, Patient or Partner has history of Genital Herpes: No, Rash or Viral illness since last mentrual period: No, Prior GBS-Infected child: No, History of STD: No, HIV Infection: No, History of Hepatitis: No, Recent travel outside of [place]: No, Concern for hepatitis exposure: No, Varicella immune: Yes (immune) and Covid Vaccinated: No Medical History Medical History: Positive: Infertility (x3 miscarriages. ) and Negative: Diabetes, Hypertension, Heart disease, Auto-immune disorder, Kidney disease/UTI, Neurologic/epilepsy, Psychiatric, Depression/ depression, Hepatitis/liver disease, Varicosities/phlebitis, Thyroid dysfunction, Trauma/domestic violence, History of blood transfusions, D (Rh) Sensitized, Pulmonary (e.g.,TB,Asthma), Seasonal allergies, Drug/latex allergies/reactions, Breast, Automotive Technician Instructor surgery, Operations/hospitalizations, Anesthetic complications, History of abnormal pap, Uterine anomaly/gino, Anti-retroviral treatment, Relevant family history and Other ROS Const All systems reviewed & are unremarkable except as noted in H Reports system reviewed and no additional complaints, except as documented Card Reports system reviewed and no additional complaints, except as documented GI Reports system reviewed and no additional complaints, except as documented Neuro Yes radicular pain Psych Reports system reviewed and no additional complaints, except as documented, Denies anhedonia, Denies depression, Denies homicidal ideation and Denies suicidal ideation Exam Const General: cooperative, healthy appearing and comfortable Nutritional Appearance: average body habitus Orientation: alert, awake and oriented x3 Neck Neck: normal visual inspection and full ROM Resp Effort & Inspection: normal respiratory effort, able to speak in complete sentences and symmetric chest movement Neuro General: patient alert, patient awake, patient oriented x3 and moves all extremities Psych Appearance: grossly normal and well kempt Mental Status: mental status grossly normal Affect: normal affect Speech and Movement: speech and movement normal Attitude: cooperative Thought Process: normal Thought Content: normal Judgment: judgment good Pelvic exam: cx closed. CRL measuring 9 weeks, no heart tones. No vaginal bleeding. 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 I have discussed with the patient the risks, benefits, and alternatives of the procedure which include but are not limited to risks of anesthesia, bleeding, infection, possible damage to bowel, bladder, or surrounding vasculature which could lead to additional surgery to evaluate any complications. Patient agrees to procedure and wishes to proceed. ACOG/uptodate references given for additional information regarding procedure. (5) care and examination: Status: Acute Orders: Orders Beta-2 Glycoprot IgG, A, M Today N96 - Recurrent loss Lupus Anticoagulant Comp Today N96 - Recurrent loss Anticardiolipin IgA,G,M Today N96 - Recurrent loss Anticardiolipin IgG, IgM Today N96 - Recurrent loss PAP I-G w/rfx hrHPV-Aptima Today Z12.4 - Encounter for screening for malignant neoplasm of cervix
--- NOTE | 2023-03-08 12:24 | DCINST_ITS ---
Discharge Instructions Diet Discharge Diet: No restrictions Activity Discharge Activity: Return to Normal Activity, May Shower and May Take a Tub Bath (after 1 week) May resume sexual activity in: 1-2 weeks Weight Bearing Status: Weight bearing as tolerated Lifting Restrictions: none Dressing / Incision Call your doctor if you observe: Fever of 101 or Higher, Using more than 1 pad per hour, Shortness of breath and Uncontrolled pain Follow Up Care Please Follow Up With: Sera Hackett DO When: Call [phone] to schedule appointment. Test Results: Test results from this visit will be discussed in further detail at your follow- up appointment, if applicable. Discharge Plan Admission Primary Reason for Your Visit: dilation and curettage Attending Provider: Sera Hackett Primary Care Provider: Florina Rausch Discharge Orders/Prescriptions Prescriptions: New naproxen 500 mg tablet 500 mg PO BID PRN (Reason: pain) Qty: 20 0RF Referrals / Follow Up: Florina Rausch, RELIGION PROFESSOR-C [Primary Care Provider] - Disposition Disposition (needs filled in before D/C Order can be placed): Home, Self Care
[2023-03-08] MEDS: Lidocaine 1% (30 ml sdv) 30 ML Vial (12:44)
[2023-03-08] MEDS: Methylergonovine 0.2 MG/ML Ampul 0.200000000000000011 MG IM (12:54)
--- NOTE | 2023-03-08 12:54 | PCM.OPRPT ---
Problems Associated Problem List Diagnoses (1) Missed : Report of Operation Date of Procedure: 03/08/23 Pre-Operative Diagnosis: 9 week missed Post-Operative Diagnosis: 9 week missed Surgery/Procedure Performed:: suction dilation and curettage Description of Surgical Findings:: 9 week IUP without heart tones. normal cervix and vagina Surgeon: Sera Hackett barley steeper: None Type of Anesthesia: MAC/Supplemental/Local Anesthesiologist: Iban Wray Special Medications: methergine Specimen's removed: products of conception Drains: none Estimated Blood Loss (mL): 50cc Description of Procedure: Patient was brought to the operating room where MAC anesthesia was found to be adequate. She was prepped and draped in the normal sterile fashion her legs were placed in stirrups a weighted speculum was placed in the vagina the anterior lip of the cervix grasped with single-tooth tenaculum. The uterus was sounded to 9 cm and was found to be dilated a centimeter. A 9 curved suction device was inserted into the uterus and under ultrasound guidance the products of conception were suctioned irrigated out of the uterus. Sharp curettage was performed removing the rest of the membranes and gestational sac. Ultrasound was performed again at the end of the procedure showing a white line indicating an empty endometrial canal. Methergine was given to help clamp the uterus down and prevent hemorrhage. The patient tolerated the procedure well sponge lap and needle counts were correct x 2 and she is now being brought to the recovery room in stable condition Procedure Start Time: 12:36 Procedure Stop Time: 12:53 Complications none Admit VTE Documentation VTE Present on Admission: No VTE Mechan Device Prophylaxis: SCD's VTE Pharm Prophylaxis ordered?: No Multi Select Codes Urinary/Genital Urinary/Genital CPT Codes: 11624 Surg Trtmt missed Ab 1TM
[2023-03-08 13:00] VITALS: BP 103/59; BP 105/62; PULSE 71; RESP 16; TEMP 36.3; O2SAT 98
[2023-03-08 13:15] VITALS: BP 103/59; BP 104/60; PULSE 61; RESP 16; O2SAT 100
[2023-03-08 13:19] VITALS: BP 103/59; BP 107/75; PULSE 72; RESP 16; TEMP 36.2; O2SAT 99
[2023-03-08 13:42] VITALS: BP 103/59; BP 108/68; PULSE 70; RESP 14; TEMP 36.4; O2SAT 99
== END 2023-03-08 13:59 | disposition home or self-care (01) ==
LOC: SDC 09:54 → AC 09:56
PROVIDERS: PCP Nurse Practitioner Family; Referring Provider Obstetrics & Gynecology; Visit Provider Obstetrics & Gynecology
PROC: (CPT 59820; principal; 2023-03-08 12:00)
DX: O02.1 Missed abortion (principal); N88.3 Incompetence of cervix uteri
CPT/HCPCS: 59820; 85027; 86850; 86900; 86901; 88305; J7120; J2405

== ENCOUNTER → 2023-11-07 | Outpatient (CLI) | payer OTHER, SELFPAY ==
[2023-11-07 14:17] LABS: Absolute Lymphocyte Count 1.53 X10^3/uL (0.83-4.51); Absolute Neutrophil Count 8.1 X10^3/uL (2.0-7.7); Basophil# 0.02 X10^3/uL; Basophil% 0.2 % (0-1); Eosinophil# 0.09 X10^3/uL; Eosinophils% 0.9 % (0-5); Hematocrit 44.2 % (37-47); Hemoglobin 14.9 g/dL (12.0-15.0); Lymphocyte # 1.53 X10^3/ul (0.83-4.51); Lymphocyte % 14.8 % (19-41); Mean Corp Hgb Conc 33.7 g/dL (32-36); Mean Corpuscular Hgb 29.7 pg (27.0-32.0); Mean Corpuscular Volume 88.2 fL (81-99); Monocyte% 5.8 % (0-10); NRBC Flagged by Analyzer 0 % (0-5); Neutrophil # 8.06 X10^3/uL (2.7-7.7); Neutrophil % 77.8 % (47-70); Platelet Count 228 K/mm3 (150-450); RBC Distribution Width CV 12.9 % (11.6-14.6); RBC Distribution Width SD 41.3 fl (35.1-43.9); Red Blood Count 5.01 M/mm3 (4.2-5.4); White Blood Count 10.4 K/mm3 (4.4-11.0)
[2023-11-07 15:21] LABS: HIV - WCH Non-Reactive (Nonreactive); Hepatitis B Surface Antigen Non-Reactive (Nonreactive); Hepatitis C Antibody Non-Reactive (Nonreactive); Rubella IgG Reactive (Nonreactive); Syphilis Antibodies Non-reactive
[2023-11-11 03:13] LABS: Chlamydia By Nucleic Acid AMP Negative (Negative); Gonococcus By Nucleic Acid AMP Negative (Negative)
== END | disposition home or self-care (01) ==
PROVIDERS: Obstetrics & Gynecology; PCP Nurse Practitioner Family; Referring Provider Obstetrics & Gynecology; Visit Provider Obstetrics & Gynecology
DX: O26.859 Spotting complicating pregnancy, unspecified trimester (principal); O09.90 Supervision of high risk pregnancy, unspecified, unspecified trimester; Z3A.00 Weeks of gestation of pregnancy not specified
CPT/HCPCS: 36415; 85025; 86703; 86762; 86780; 86803; 86850; 86900; 86901; 87070; 87205; 87340; 87491; 87591

== ENCOUNTER → 2023-12-16 | Outpatient (CLI) | payer OTHER, SELFPAY | END | disposition home or self-care (01) | LOC: LABSPEC 10:06 | PROVIDERS: PCP Nurse Practitioner Family; Referring Provider Nurse Practitioner Women's Health; Visit Provider Nurse Practitioner Women's Health | DX: Z34.92 Encounter for supervision of normal pregnancy, unspecified, second trimester (principal); Z3A.16 16 weeks gestation of pregnancy | CPT/HCPCS: 87086; 87088 ==

== ENCOUNTER → 2024-02-14 | Outpatient (CLI) | payer OTHER, SELFPAY | END | disposition home or self-care (01) | LOC: LABSPEC 11:45 | PROVIDERS: PCP Nurse Practitioner Family; Referring Provider Obstetrics & Gynecology; Visit Provider Obstetrics & Gynecology | DX: N89.8 Other specified noninflammatory disorders of vagina (principal) | CPT/HCPCS: 87070; 87205 ==

== ENCOUNTER → 2024-03-09 | Outpatient (CLI) | payer OTHER, SELFPAY ==
[2024-03-09 09:56] LABS: Absolute Lymphocyte Count 1.08 X10^3/uL (0.83-4.51); Absolute Neutrophil Count 6.8 X10^3/uL (2.0-7.7); Basophil# 0.02 X10^3/uL; Basophil% 0.2 % (0-1); Eosinophil# 0.04 X10^3/uL; Eosinophils% 0.5 % (0-5); Hematocrit 40.1 % (37-47); Hemoglobin 13.9 g/dL (12.0-15.0); Lymphocyte # 1.08 X10^3/ul (0.83-4.51); Lymphocyte % 12.5 % (19-41); Mean Corp Hgb Conc 34.7 g/dL (32-36); Mean Corpuscular Hgb 31.2 pg (27.0-32.0); Mean Corpuscular Volume 89.9 fL (81-99); Mean Platelet Vol. 9.3 fl (6.2-12.0); Monocyte# 0.61 X10^3/uL; Monocyte% 7.1 % (0-10); NRBC Flagged by Analyzer 0 % (0-5); Neutrophil # 6.81 X10^3/uL (2.7-7.7); Neutrophil % 78.9 % (47-70); Platelet Count 186 K/mm3 (150-450); RBC Distribution Width CV 13.5 % (11.6-14.6); RBC Distribution Width SD 44.8 fl (35.1-43.9); Red Blood Count 4.46 M/mm3 (4.2-5.4); White Blood Count 8.6 K/mm3 (4.4-11.0)
[2024-03-09 10:24] LABS: Glucose Challenge Gest 1H 50g 116 mg/dL (70-140)
[2024-03-09 15:46] LABS: Syphilis Antibodies Non-reactive
[2024-03-10 21:52] LABS: HIV - WCH Non-Reactive (Nonreactive)
[2024-03-11 17:07] LABS: Dilute Prothrombin Time (dPT) 35.1 sec (0.0-47.6); Dilute Russell Viper Venom 39.6 sec (0.0-47.0); Hexagonal Phase Phospholipid 2 16 sec (0-11); Interpretation Comment: (.); PTT-LA 56.4 sec (0.0-43.5); PTT-LA Mix 49.5 sec (0.0-40.5); Thrombin Time 16.1 sec (0.0-23.0); dPT Confirm Ratio 1.17 Ratio (0.00-1.34)
== END | disposition home or self-care (01) ==
LOC: LAB 08:58
PROVIDERS: Registered Nurse; PCP Pediatrics; Referring Provider Obstetrics & Gynecology; Visit Provider Obstetrics & Gynecology
DX: O09.92 Supervision of high risk pregnancy, unspecified, second trimester (principal); Z3A.00 Weeks of gestation of pregnancy not specified; Z13.1 Encounter for screening for diabetes mellitus; O99.892 Other specified diseases and conditions complicating childbirth; N96 Recurrent pregnancy loss
CPT/HCPCS: 82950; 85025; 86703; 86780

== ENCOUNTER → 2024-04-02 | Outpatient (CLI) | payer OTHER, SELFPAY ==
--- NOTE | 2024-04-02 11:07 | US_ITS ---
PROCEDURE: OB LIMITED WITH BIOMETRICS REASON FOR EXAM: growth. COMPARISON: None FINDINGS Number: 1 Position: Vertex Placental Position: Anterior and not low-lying. Placental Abnormalities: None. DIMENSIONS: Biparietal Diameter: 8.4 cm: 33 weeks 5 days: 89%/ Head Circumference: 29.5 cm: 32 weeks 4 days: 31%/ Abdominal Circumference: 27.9 cm: 32 weeks and 0 days: 52%/ Femur Length: 6.1 cm: 31 weeks and 5 days: 33%/ ESTIMATED WEIGHT: 1939 g plus/-291 g ESTIMATED WEIGHT PERCENTILE (24+ weeks): 52 ESTIMATED GESTATIONAL AGE: Baseline: 31 weeks 6 days By Ultrasound: 32 weeks 1 day ESTIMATED DATE OF DELIVERY: Baseline: May 29, 2024 By Ultrasound: May 27, 2024 BIOPHYSICAL ASSESSMENT: Amniotic Fluid Volume: Subjectively normal. Amniotic Fluid Index: 13.3 (8-24 cm normal range) Cardiac Motion: 152 beats per minute (average) Trunk and Limb Motion: Present. MATERNAL ANATOMY: Adnexa: Neither maternal ovary is successfully identified. US/OB Limited With Biometrics IMPRESSION: Single live intrauterine gestation with mean gestational age of 32 weeks and 1 day. The measurements obtained today fall with the normal expected range. Reading Location: [facility]
== END | disposition home or self-care (01) ==
PROVIDERS: PCP Pediatrics; Referring Provider Obstetrics & Gynecology; Visit Provider Obstetrics & Gynecology
DX: O99.119 Other diseases of the blood and blood-forming organs and certain disorders involving the immune mechanism complicating pregnancy, unspecified trimester (principal); D68.61 Antiphospholipid syndrome; Z3A.00 Weeks of gestation of pregnancy not specified
CPT/HCPCS: 76816

== ENCOUNTER → 2024-05-01 | Outpatient (CLI) | payer OTHER, SELFPAY ==
--- NOTE | 2024-05-01 11:29 | US_ITS ---
PROCEDURE: OB LIMITED WITH BIOMETRICS REASON FOR EXAM: growth. COMPARISON: Comparison is made with prior study dated April 02, 2024. FINDINGS Number: 1 Position: Vertex Placental Position: Anterior Placental Abnormalities: None. DIMENSIONS: Biparietal Diameter: 9.1 cm: 36 weeks and 6 days: 79 percentile/ Head Circumference: 32.9 cm: 37 weeks and 3 days: 56 percentile/ Abdominal Circumference: 32.5 cm: 36 weeks and 3 days: 72 percentile/ Femur Length: 6.7 cm: 34 weeks and 3 days: 12th percentile/ ESTIMATED WEIGHT: 2850 g plus/-427 g ESTIMATED WEIGHT PERCENTILE (24+ weeks): 54 ESTIMATED GESTATIONAL AGE: Baseline: 36 weeks and 0 days By Ultrasound: 36 weeks and 3 days ESTIMATED DATE OF DELIVERY: Baseline: May 29, 2024 By Ultrasound: May 26, 2024 BIOPHYSICAL ASSESSMENT: Amniotic Fluid Volume: Subjectively normal. Amniotic Fluid Index: 9.6 (8-24 cm normal range) Cardiac Motion: 137 beats per minute (average) Trunk and Limb Motion: Present. MATERNAL ANATOMY: Adnexa: Neither maternal ovary is successfully identified. US/OB Limited With Biometrics IMPRESSION: Single live intrauterine gestation with a mean gestational age of 36 weeks and 3 days. Reading Location: [facility]
== END | disposition home or self-care (01) ==
LOC: US 11:27
PROVIDERS: PCP Pediatrics; Referring Provider Obstetrics & Gynecology; Visit Provider Obstetrics & Gynecology
DX: O09.93 Supervision of high risk pregnancy, unspecified, third trimester (principal); Z3A.00 Weeks of gestation of pregnancy not specified
CPT/HCPCS: 76816; 87081

== ENCOUNTER 2024-05-07 09:32 | Inpatient (IN) | payer SELFPAY, OTHER ==
[2024-05-07] VITALS (49 sets, daily range): BP systolic 110–135; BP diastolic 56–93; PULSE 72–106; RESP 14–16; TEMP 36.5–36.9; O2SAT 96–100; BMI 31.6
[2024-05-07 10:31] LABS: Absolute Lymphocyte Count 1.04 X10^3/uL (0.83-4.51); Absolute Neutrophil Count 5.1 X10^3/uL (2.0-7.7); Basophil# 0.01 X10^3/uL; Basophil% 0.1 % (0-1); Eosinophil# 0.03 X10^3/uL; Eosinophils% 0.4 % (0-5); Hematocrit 38.9 % (37-47); Hemoglobin 13.8 g/dL (12.0-15.0); Lymphocyte # 1.04 X10^3/ul (0.83-4.51); Lymphocyte % 15.4 % (19-41); Mean Corp Hgb Conc 35.5 g/dL (32-36); Mean Corpuscular Hgb 31.7 pg (27.0-32.0); Mean Corpuscular Volume 89.4 fL (81-99); Mean Platelet Vol. 9.3 fl (6.2-12.0); Monocyte% 7.4 % (0-10); NRBC Flagged by Analyzer 0 % (0-5); Neutrophil # 5.13 X10^3/uL (2.7-7.7); Neutrophil % 76.1 % (47-70); Platelet Count 155 K/mm3 (150-450); RBC Distribution Width CV 13.9 % (11.6-14.6); RBC Distribution Width SD 45.2 fl (35.1-43.9); Red Blood Count 4.35 M/mm3 (4.2-5.4); White Blood Count 6.8 K/mm3 (4.4-11.0)
[2024-05-07] MEDS: Lactated Ringers 1,000 ML 50 ML IV (10:32)
[2024-05-07 11:40] LABS: Syphilis Antibodies Nonreactive (Nonreactive)
[2024-05-07] MEDS: Oxytocin 15 Units/NS 250ml 15 UNITS/250 ML IV.SOLN 2 UNITS IV (14:21)
--- NOTE | 2024-05-07 17:31 | HP.PCM.OB_ITS ---
HPI - General General Date of Admission: 05/07/24 HPI Narrative BRIANA QUIROZ, is a 29 y/o @36 weeks 6 days who presents to L&D for IOL due to oligohydramnios. She had a her cervical cerclage removed 5 days ago and has started having contractions. The monitor is not showing many contractions and so pitocin was ordered. She last took her lovenox at 5:30 am today. 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, antepartum Stillborn, normal Oligohydramnios Blood clotting disorder Wears glasses Migraine headache Vaginal delivery Cervical incompetence Vaginal delivery History of pre-term labor Cervical insufficiency in , antepartum demise Home Medications ?Medication ?Instructions ?Recorded ?Last Taken ?Type docosahexaenoic acid 200 mg 200 mg PO DAILY 11/05/23 05/06/24 09:00 History capsule (Algal Rangeley-3 DHA) multivit-min no.71-iron fum 28 1 cap PO DAILY pregnanc y 11/05/23 05/06/24 09:00 History mg-folate no.1 1 mg-dha 300 mg capsule (PNV-Rangeley) enoxaparin 40 mg/0.4 mL 40 mg (0.4 mL) subcut QDAY b lood 03/17/24 05/07/24 04:30 Rx subcutaneous syringe (Lovenox) clotting disorder 30 da ys #12 mL Allergy/AdvReac Type Severity Reaction Status Date / Time No Known Allergies Allergy Verified 05/07/24 09:54 Family History Grandmother Diabetes Aunt Cervical cancer, Onset Age: 37 Maternal Sister Heart murmur Brother Heart murmur Surgical History (Updated 05/07/24 @ 10:25 by Maria C Stephenson) History of gynecologic surgery H/O dilation and curettage Social History adopted: No household members: spouse and children housing: house number of children: 2 current occupational status: unemployed current occupation: [employer] current occupational exposures/hazards: No pets and animals: No history of recent travel: No sexually active: Yes Smoking Status: Never smoker alcohol intake: never substance use type: does not use well-balanced diet: about half the time caffeine: Yes Type: coffee Number of servings: 1 eating out: rarely or never during the past year weight has: increased > 10 lbs what type of physical activity do you participate in: none daniel/methodist: [facility] seatbelt use: sometimes do you feel safe at home: Yes 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 Date Name GA/Weeks Outcome Route Bth Weight Gen Labor Lgth Anesthesia Del Locatn Provider FOB 10/17/18 male 15 07/15/19 male 22 live - 12/12/20 Steph 39 live - full term 6lbs 4oz Female [facility] [place] Dr. Funk 08/14/22 Calderon 38 live - full term Male [facility] [place] Chintan Butts 03/06/23 10 spontaneous Delivery Date: 10/17/18 Last Updated by: Steph Vargsa D&Peggy Delivery Date: 07/15/19 Last Updated by: Amanda Funk MD cervical insufficiency Delivery Date: 12/12/20 Last Updated by: Steph Vargas Cervical insuff-cerclage, Hansen Delivery Date: 08/14/22 Last Updated by: Peri Beltran IOL SROM intact, cerclage Delivery Date: 03/06/23 Last Updated by: Peri Beltran D&Peggy Visit Details Expected Delivery Route/Plan Labor Preferences- CB/BF classes: no labor support person: Jose labor intervention preferences: [] pain management options preferred: eoidural cut cord/dad catch: no : yes PP control planned: discussed discussed possible routes of delivery and associated risks: [] special requests: [] Plans Covid status: [] Flu vaccine: [] Tdap vaccine: declines Rhogam: na LARC form signed: yes Problem list reviewed and updated with the most current plan of care details and appropriate orders placed. Relevant counseling for the gestational age provided. Continue routine care and follow up unless otherwise noted in visit notes/problem list details OB Flowsheet Initial Weight: Not Recorded Date -?-?-?-?-?-?-?-?-?-?-?-?- EGA Weight BP Urine Prot -?-?-?-?-?-?-?-?-?-?-?-?- Glucose FHR FuHt Pres Dilation -?-?-?-?-?-?-?-?-?-?-?-?- Effaced St Visit Note 11/07/23 -?-?-?-?-?-?-?-?-?-?-?-?- 10w 6d 183 lb 6 oz 139/87 -?-?-?-?-?-?-?-?-?-?-?-?- 189 -?-?-?-?-?-?-?-?-?-?-?-?- JV- pt was bleed ing earlier this week. No bleeding today. 2 small WILLI seen less than 1 cm. CRL consistent with LMP. Pt needs MFM consultation for cerclage at 16 weeks. cultures ordered today. declines NIPT. 12/16/23 -?-?-?-?-?-?-?-?-?-?-?-?- 16w 3d 181 lb 8 oz 110/70 Nega tive -?-?-?-?-?-?-?-?-?-?-?-?- Negative 154 -?-?-?-?-?-?-?-?-?-?-?-?- MH-No VB. Slim betancourt. Cerclage placed 12/04/23 01/16/24 -?-?-?-?-?-?-?-?-?-?-?-?- 20w 6d 186 lb 8 oz 109/71 -?-?-?-?-?-?-?-?-?-?-?--?- 150 -?-?-?-?-?-?-?-?-?-?-?-?- JV- no lof, vagi nal bleeding, or cramping. has cerclage in place and last CL was 50mm. Her scan from today is pending. [facility] k[facility] told her it all looks good. will call with formal results. 02/14/24 -?-?-?-?-?-?-?-?-?-?-?-?- 25w 0d 190 lb 2 oz 109/62 Nega tive -?-?-?-?-?-?-?-?-?-?-?-?- Negative 144 0 -?-?-?-?-?-?-?-?-?-?-?-?- JV- pt complains of headaches and lower uterine cramping/pressure. on exam there is a yeast infection present. red top collected to also r/o BV. starting terconazole. recommend increase fluids + tylenol. rest. cx is closed. cerclage in place. 03/09/24 -?-?-?-?-?-?-?-?-?-?-?-?- 28w 3d 194 lb 4 oz 111/73 Nega tive -?-?-?-?-?-?-?-?-?-?-?-?- Negative 154 -?-?-?-?-?-?-?-?-?-?-?-?- MH-No VB, LOF. G ood FM. Larc. Declines tdap. 28 wk labs pending 03/27/24 -?-?-?-?-?-?-?-?-?-?-?-?- 31w 0d 197 lb 2 oz 107/71 -?-?-?-?-?-?-?-?-?-?-?-?- 150 30 -?-?-?-?-?-?-?-?-?-?-?-?- SM- no vb lof go od fm no reuglar ctx discussed may need extrar testing due to apl psoitive 04/07/24 -?-?-?-?-?-?-?-?-?-?-?-?- 32w 4d 198 lb 4 oz 109/69 Nega tive -?-?-?-?--?-?-?-?-?-?-?-?- Negative 130 32 -?-?-?-?-?-?-?-?-?-?-?-?- SM- no vb lof go od fm no regular ctx nl growth 04/24/24 -?-?-?-?-?-?-?-?-?-?-?-?- 35w 0d 199 lb 2 oz 111/74 Nega tive -?-?-?-?-?-?-?-?-?-?-?-?- Negative 140 35 -?-?-?-?-?-?-?-?-?-?-?-?- KW- no vb/lof/ct c. good fm. wanting permanent control. discussed BTO and pt agrees. KW- no vb/lof/ctc. good fm. wanting permanent control. discussed BTO and pt agrees. WIll work in on saturday prior to US and request Physician to remove cerclage. 05/01/24 -?-?-?-?-?-?-?-?-?-?-?-?- 36w 0d 199 lb 4 oz 124/77 -?-?-?-?-?-?-?-?-?-?-?-?- 130 -?-?-?-?-?-?-?-?-?-?-?-?- SM- no vb lof go od fm no reg ctx SM- no vb lof good fm no reg ctx. crclage removed without difficulty. 05/07/24 -?-?-?-?-?-?-?-?-?-?-?-?- 36w 6d 197 lb 2 oz 121/79 Nega tive -?-?-?-?-?-?-?-?-?-?-?-?- Negative 145 35 Cephalic 2 -?-?-?-?-?-?-?-?-?-?-?-?- 60 -2 JV- annemarie is low today only one measurable pocket without cord and it is 2.2 cm. sending to l&D for IOL. ROS Constitutional Constitutional: Denies change in weight, fatigue, fever(s), headache(s), poor appetite or weakness Eyes Eyes: Denies blurry vision, change in vision, seeing flashes or spots in vision ENT HEENT: Denies dizziness, headache(s), loss taste/smell or sore throat Cardiovascular Cardiovascular: Denies chest pain, dizziness, dyspnea, irregular heart rhythm, leg edema, palpitations, rapid heart rate or vomiting Respiratory/Chest Respiratory/Chest: Denies chest tightness, cough, dyspnea or breast pain Gastrointestinal Gastrointestinal: Denies abdominal pain, anorexia, constipation, cramping, diar eduardo, hemorrhoids, vomiting or weight changes Genitourinary Genitourinary: Denies dysuria, flank pain, genital lesions, genital pain, urinary frequency or urinary urgency Musculoskeletal Musculoskeletal: Denies back pain, difficulty walking, joint pain, limited range of motion, muscle cramps or numbness Integumentary Integumentary: Denies lesions or unusual bruising Neurologic Neurologic: Denies abnormal movements, abnormal speech, dizziness, numbness, seizure-like activity or syncope Psychiatric Psychiatric: Denies anxiety, behavioral changes, change in appetite, change in libido, cognitive impairment, confusion, depression, difficulty concentrating, hallucinations or suicidal thoughts Endocrine Endocrinology: Denies excessive sweating, polydipsia or polyuria Hematologic/Lymphatic Hematologic/Lymphatic: Denies easy bleeding, easy bruising or lymphadenopathy Allergic/Immunologic Allergic/Immunologic: Denies itchy eyes, lip swelling, seasonal rhinorrhea, rhinitis, throat swelling, tongue swelling, eczemia, wheezing or asthma Vital Signs Vital Signs Vital Signs: 05/07/24 09:55 05/07/24 09:55 05/07/24 09:55 Temperature Temperature Source Temporal Pulse Rate 96 Respiratory Rate Blood Pressure 128/80 H BP Systolic 128 BP Diastolic 80 Pulse Ox 05/07/24 09:55 05/07/24 09:55 05/07/24 09:55 Temperature Temperature Source Pulse Rate 99 Respiratory Rate 16 Blood Pressure 128/80 H BP Systolic 128 BP Diastolic 80 Pulse Ox 05/07/24 09:55 05/07/24 09:55 05/07/24 13:30 Temperature 98.4 F Temperature Source Pulse Rate Respiratory Rate Blood Pressure 120/74 BP Systolic 120 BP Diastolic 74 Pulse Ox 97 05/07/24 13:30 05/07/24 14:20 05/07/24 14:20 Temperature Temperature Source Pulse Rate 88 93 Respiratory Rate Blood Pressure 131/76 H BP Systolic 131 BP Diastolic 76 Pulse Ox 05/07/24 14:21 05/07/24 14:21 05/07/24 14:21 Temperature Temperature Source Temporal Pulse Rate Respiratory Rate 16 Blood Pressure BP Systolic BP Diastolic Pulse Ox 99 05/07/24 14:21 05/07/24 15:35 05/07/24 15:35 Temperature 98.1 F Temperature Source Pulse Rate 101 H Respiratory Rate Blood Pressure 133/80 H BP Systolic 133 BP Diastolic 80 Pulse Ox 05/07/24 15:36 05/07/24 15:36 05/07/24 17:01 Temperature Temperature Source Pulse Rate 97 Respiratory Rate Blood Pressure 133/73 H BP Systolic 133 BP Diastolic 73 Pulse Ox 97 05/07/24 17:01 05/07/24 17:01 05/07/24 17:01 Temperature Temperature Source Temporal Pulse Rate 97 Respiratory Rate Blood Pressure BP Systolic BP Diastolic Pulse Ox 99 05/07/24 17:01 05/07/24 17:01 05/07/24 17:01 Temperature 97.8 F Temperature Source Pulse Rate Respiratory Rate 15 Blood Pressure BP Systolic BP Diastolic Pulse Ox 99 Weight Weight: 195 lb 12.8 oz Body Mass Index (BMI) 31.6 Physical Exam Const alert, oriented x3, no apparent distress and healthy appearing General Appearance: cooperative; Negative for anxious HEENT normocephalic Face and Sinus: normal facial exam Eyes EOMs intact bilaterally and no scleral icterus General Eye: normal appearance of both eyes Neck full ROM and supple Lymph Lymphatic: no lymphadenopathy noted Chest Chest: abnormal inspection of the chest Resp normal respiratory effort Effort and Inspection: able to speak in complete sentences Cardio regular rate GI soft to palpation and non-tender Inspection: gravid Palpation: soft; Negative for tender external exam normal Narrative: cx is 3/60/-2, posterior. membranes ruptured with scant fluid return Back/Spine no CVA tenderness Extremity normal to inspection, full ROM and no clubbing, cyanosis or edema General Extremity: Negative for calf tenderness or edema Skin Lesions: no lesions Rashes: no rashes Psych mental status grossly normal Labs Labs Labs: Blood Type B POSITIVE Antibody Screen NEGATIVE Hct 38.9 % (37-47) Hgb 13.8 g/dL (12.0-15.0) Obstetrics Ultrasound Syphilis Total Ab Nonreactive (Nonreactive) Rubella IgG Antibody Reactive (Nonreactive) Hep Bs Antigen Non-Reactive (Nonreactive) Hepatitis C Antibody Non-Reactive (Nonreactive) Chlamydia DNA (MIRTA) Negative (Negative) N.gonorrhoeae DNA (MIRTA) Negative (Negative) HIV 1&2 Antibody Non-Reactive (Nonreactive) Glucose 1 Hr 50 gm 116 mg/dL (70-140) Rhogam given: No Miscellaneous Test Assessment & Plan (1) Oligohydramnios: (2) Antiphospholipid antibody syndrome complicating : COMMENT: tested positive for lupus anticoagulant. start lovenox. rpt 18 weeks after delivery; recommend growth us 32- nl growth and 36 weeks and weekly nsts 36 weeks (3) Circumvallate placenta: QUALIFIERS: Trimester: third trimester Qualified Code(s): O43.113 - Circumvallate placenta, third trimester COMMENT: mfm suspected this early. they want to repeat views during anatomy scan and if confirms then they want to do monthly growth ultrasounds. (4) Supervision of high-risk : QUALIFIERS: Trimester: third trimester Qualified Code(s): O09.93 - Supervision of high risk , unspecified, third trimester COMMENT: PRR , DEVIKA 05/29/24,boy PC Calderon Choi; Jose (5) : QUALIFIERS: Weeks of gestation: 36 weeks Qualified Code(s): Z3A.36 - 36 weeks gestation of COMMENT: GBS Negative, declines genetic & carrier testing, rpt APL panel in 3 months(May) (6) H/O cervical cerclage, currently : (7) Cervical insufficiency during , antepartum: COMMENT: Cerclage placed 12/04/23 [facility]. 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 Pain management: plans epidural. GBS negative. Management of any complications: see above [facility] and made any clinically relevant updates.
[2024-05-07] MEDS: Lactated Ringers 1,000 ML 999 ML IV (17:37)
[2024-05-07] MEDS: fentaNYL-bupivacaine (epidural) 100 ML BAG EPIDURAL (18:10)
[2024-05-07] MEDS: Lactated Ringers 1,000 ML 200 ML IV (21:39)
[2024-05-07] MEDS: Ondansetron 4 MG/2 ML Vial IV (21:48)
[2024-05-07] MEDS: 0.9% Saline Lock 10 ML Syringe IV (21:48)
--- NOTE | 2024-05-07 22:50 | EX.PCM.OBVAG ---
Assessment & Plan (1) Oligohydramnios: (2) Antiphospholipid antibody syndrome complicating : COMMENT: tested positive for lupus anticoagulant. start lovenox. rpt 18 weeks after delivery; recommend growth us 32- nl growth and 36 weeks and weekly nsts 36 weeks (3) Circumvallate placenta: QUALIFIERS: Trimester: third trimester Qualified Code(s): O43.113 - Circumvallate placenta, third trimester COMMENT: mfm suspected this early. they want to repeat views during anatomy scan and if confirms then they want to do monthly growth ultrasounds. (4) Supervision of high-risk : QUALIFIERS: Trimester: third trimester Qualified Code(s): O09.93 - Supervision of high risk , unspecified, third trimester COMMENT: PRR , DEVIKA 05/29/24,boy Calderon Beasley; Jose (5) : QUALIFIERS: Weeks of gestation: 36 weeks Qualified Code(s): Z3A.36 - 36 weeks gestation of COMMENT: GBS Negative, declines genetic & carrier testing, rpt APL panel in 3 months(May) (6) H/O cervical cerclage, currently : (7) Cervical insufficiency during , antepartum: COMMENT: Cerclage placed 12/04/23 [facility]. 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: COMMENT: miscarriage at 10 wk,12w & 22wks (9) FH: congenital heart problem: COMMENT: 3 siblings with heart murmur Maternal Data Information DEVIKA Calculator Estimated Delivery Date Method Current Current Estimate 05/29/24 LMP (Certain) 36w 6d Other Estimates 05/29/24 Ultrasound #1 36w 6d Final DEVIKA: 05/29/24 Final DEVIKA Source: LMP Gestational age: 36 weeks 6 days Vaginal Delivery Maternal Presentation Maternal Presentation: Medically Indicated Induction Type of Induction: Pitocin and Amniotomy Vaginal Delivery Information Procedure Performed: Spontaneous Vaginal Delivery Surgeon/Practitioner: Sera Hackett Date of Procedure: 05/07/24 Pre-Procedure Diagnosis: 29 y/o @36 weeks 6 days Post-Procedure Diagnosis: 29 y/o @36 weeks 6 days Type of anesthesia: Epidural Estimated Blood Loss: 100cc Time of Delivery: 22:37 Findings Description of procedure: Patient began pushing and delivered the head in the CHRISTY presentation. The head was delivered atraumatically and a loose nuchal cord ?1 was identified and easily reduced over the infant's head. The anterior and posterior shoulders delivered without complication followed by the rest of the and the was placed on the maternal abdomen. Delayed cord clamping was employed for approximately 60 seconds. Cord was clamped and cut and gentle traction was applied to the cord and the placenta delivered spontaneously immediately following it was noted to be intact with three-vessel cord. The perineum and vagina were inspected and noted to have no laceration. EBL was 100 cc. Patient and tolerated delivery well. Procedure findings: viable male Tuan Presentation: Vertex Amniotic Membrane Rupture Type: Artificial Amniotic Fluid Description: Clear Placenta Disposition: [facility] Specimen collected: No Cord Vessel Description: 3 Vessels Cord Entanglement: Around neck x 1, loose Nuchal Cord Compression: Without compression Infant A Gender: Male (1 minute): 9 (5 minute): 9 Delayed Cord Clamping: Yes Complex Human Resources Manager senior sql server developer: No Post Vaginal Deli Medications given after delivery: IV Pitocin Episiotomy Description: None Laceration: None Complication Complications: No Multi Select Codes Urinary/Genital Urinary/Genital CPT Codes: 45417 Vaginal Delivery [facility]
--- NOTE | 2024-05-07 22:53 | DCINST_ITS ---
Discharge Instructions Diet Discharge Diet: No restrictions DC O2, CPAP, BIPAP needs Home O2 Discharge instructions: No Dressing / Incision Discharge Activity: Return to Normal Activity, May Not Drive (while taking narcotic pain medications.) and May Shower May resume sexual activity in: 4-6 weeks Dressing / Incision Call your doctor if your incision/area has: Continuous Slow Oozing, Sudden Increased Bleeding, Increased Pain/ Swelling, Increased Redness and Foul Smelling Discharge Follow Up Care Please Follow Up With: Sera Hackett DO When: Call [phone] to make an appointment with your doctor in 6 weeks. If you had elevated blood pressure or 4th degree laceration, you will need to be seen in 2 weeks. Test Results: Test results from this visit will be discussed in further detail at your follow- up appointment, if applicable. Discharge Plan Admission Admit Date/Time: 05/07/24 09:32 Attending Provider: Sera Hackett Primary Care Provider: Dea Carl Discharge Orders/Prescriptions Prescriptions: Continued Algal Frankford-3 DHA 200 mg capsule 200 mg PO DAILY enoxaparin [Lovenox] 40 mg/0.4 mL syringe 40 mg subcut QDAY 30 Days Qty: 12 12RF No Action PNV-Frankford 28-1-300 mg capsule 1 cap PO DAILY Referrals / Follow Up: Dea Carl DO [Primary Care Provider] - Disposition Disposition (needs filled in before D/C Order can be placed): Home, Self Care
[2024-05-07] MEDS: Oxytocin 15 Units/NS 250ml 15 UNITS/250 ML IV.SOLN 83 UNITS IV (23:10)
[2024-05-08] VITALS (15 sets, daily range): BP systolic 102–144; BP diastolic 56–76; PULSE 72–93; RESP 16; TEMP 36.4–36.8; O2SAT 96–98
[2024-05-08] MEDS: Ibuprofen 600 MG Tablet PO (07:05)
[2024-05-08] MEDS: Acetaminophen 500 MG Tablet 1000 MG PO ×2 (07:09→21:44)
--- NOTE | 2024-05-08 08:29 | PCM.PN.OB ---
Subjective Subjective Patient doing well without complaints. Tolerating PO. Ambulating and voiding without difficulty. feeding well. Denies chest pain, shortness of breath, calf pain/swelling, fevers, chills, lightheadedness. Objective Data Objective Data Vital Signs: Vital Signs Temp Pulse Resp BP Pulse Ox O2 Del Method 98.3 F 84 16 119/62 96 Room Air 05/08/24 03:33 05/08/24 03:34 05/08/24 03:33 05/08/24 03:34 05/08/24 03:33 05/08/24 03:33 Oxygen Delivery Method Room Air Weight: 195 lb 12.8 oz Body Mass Index (BMI) 31.6 Intake & Output: Intake and Output for Last 24 Hours 05/06/24 05/07/24 05/08/24 23:59 23:59 23:59 Intake Total 2453.33 / 2453.33 250 / 250 Output Total 1100 / 1100 1700 / 1700 Balance 1353.33 / 1353.33 -1450 / -1450 Lab / Micro Data 05/07/24 10:00 Labs: Laboratory Results - last 24 hr 05/07/24 10:00: WBC 6.8, RBC 4.35, Hgb 13.8, Hct 38.9, MCV 89.4, MCH 31.7, MCHC 35.5, RDW Std Deviation 45.2 H, RDW Coeff of Costa 13.9, Plt Count 155, MPV 9.3, Immature Gran % (Auto) 0.600, Neut % (Auto) 76.1 H, Lymph % (Auto) 15.4 L, [place] % (Auto) 7.4, Eos % (Auto) 0.4, Baso % (Auto) 0.1, Absolute Neuts (auto) 5.1, Absolute Lymphs (auto) 1.04, Nucleated RBC % 0, Syphilis Total Ab Nonreactive, Blood Type B POSITIVE, Antibody Screen NEGATIVE ROS Constitutional Constitutional: Reports systems reviewed and no addt'l complaints, except as documented Cardiovascular Cardiovascular: Reports systems reviewed and no addt'l complaints, except as documented Respiratory/Chest Respiratory/Chest: Reports systems reviewed and no addt'l complaints, except as documented Gastrointestinal Gastrointestinal: Reports systems reviewed and no addt'l complaints, except as documented Physical Exam Const alert, oriented x3 and no apparent distress HEENT Head and Scalp: atraumatic Resp normal respiratory effort GI soft to palpation and non-tender Bimanual Exam - Vag & Uterus: uterus non-tender Uterus Palpation: uterus fundus firm (below Umbilicus) Assessment & Plan (1) Vaginal delivery: COMMENT: JULIUS- baby jhoan Dickerson PLAN: Plan s/p PPD # 1 1. routine post delivery care 2. breast feeding- support given 3. rh positive 4. rubella immune
[2024-05-08] MEDS: Enoxaparin 40 MG/0.4 ML Syringe SC (13:32)
[2024-05-09 02:27] VITALS: BP 103/62; PULSE 52; RESP 16; TEMP 36.6
[2024-05-09 08:20] VITALS: BP 122/80; PULSE 82; RESP 18; TEMP 36.6; O2SAT 95
[2024-05-09 12:24] VITALS: BP 128/80; PULSE 70; RESP 18; TEMP 36.4; O2SAT 95
--- NOTE | 2024-05-09 15:49 | PCM.PN.OB ---
Subjective Subjective Patient doing well without complaints. Tolerating PO. Ambulating and voiding without difficulty. feeding well. Denies chest pain, shortness of breath, calf pain/swelling, fevers, chills, lightheadedness. Objective Data Objective Data Vital Signs: Vital Signs Temp Pulse Resp BP Pulse Ox O2 Del Method 97.6 F L 70 18 128/80 H 95 Room Air 05/09/24 12:24 05/09/24 12:24 05/09/24 12:24 05/09/24 12:24 05/09/24 12:24 05/09/24 12:24 Oxygen Delivery Method Room Air Weight: 195 lb 12.8 oz Body Mass Index (BMI) 31.6 Intake & Output: Intake and Output for Last 24 Hours 05/07/24 05/08/24 05/09/24 23:59 23:59 23:59 Intake Total 2453.33 / 2453.33 250 / 250 Output Total 1100 / 1100 1700 / 1700 Balance 1353.33 / 1353.33 -1450 / -1450 Lab / Micro Data 05/07/24 10:00 Labs: Laboratory Results - last 24 hr 05/07/24 10:00: WBC 6.8, RBC 4.35, Hgb 13.8, Hct 38.9, MCV 89.4, MCH 31.7, MCHC 35.5, RDW Std Deviation 45.2 H, RDW Coeff of Costa 13.9, Plt Count 155, MPV 9.3, Immature Gran % (Auto) 0.600, Neut % (Auto) 76.1 H, Lymph % (Auto) 15.4 L, [place] % (Auto) 7.4, Eos % (Auto) 0.4, Baso % (Auto) 0.1, Absolute Neuts (auto) 5.1, Absolute Lymphs (auto) 1.04, Nucleated RBC % 0, Syphilis Total Ab Nonreactive, Blood Type B POSITIVE, Antibody Screen NEGATIVE ROS Constitutional Constitutional: Reports systems reviewed and no addt'l complaints, except as documented Cardiovascular Cardiovascular: Reports systems reviewed and no addt'l complaints, except as documented Respiratory/Chest Respiratory/Chest: Reports systems reviewed and no addt'l complaints, except as documented Gastrointestinal Gastrointestinal: Reports systems reviewed and no addt'l complaints, except as documented Physical Exam Const alert, oriented x3 and no apparent distress HEENT Head and Scalp: atraumatic Resp normal respiratory effort GI soft to palpation and non-tender Bimanual Exam - Vag & Uterus: uterus non-tender Uterus Palpation: uterus fundus firm (below Umbilicus) Assessment & Plan (1) Vaginal delivery: COMMENT: JULIUS- baby jhoan Dickerson PLAN: Plan s/p PPD # 2 1. routine post delivery care 2. breast feeding- support given 3. rh positive 4. rubella immune
== END 2024-05-09 12:55 | disposition home or self-care (01) | DRG 806 ==
PROVIDERS: Admitting Provider Obstetrics & Gynecology; PCP Pediatrics; Referring Provider Obstetrics & Gynecology; Visit Provider Obstetrics & Gynecology
DX: O41.03X0 Oligohydramnios, third trimester, not applicable or unspecified (principal); Z37.0 Single live birth; O99.12 Other diseases of the blood and blood-forming organs and certain disorders involving the immune mechanism complicating childbirth; D68.61 Antiphospholipid syndrome; O69.81X0 Labor and delivery complicated by cord around neck, without compression, not applicable or unspecified; O43.113 Circumvallate placenta, third trimester; Z3A.36 36 weeks gestation of pregnancy; Z79.01 Long term (current) use of anticoagulants; Z87.59 Personal history of other complications of pregnancy, childbirth and the puerperium
CPT/HCPCS: 59025; 59050; 85025; 86780; 86850; 86900; 86901; 99221; A4216; G0378; J2405

== ENCOUNTER → 2024-06-15 | Outpatient (CLI) | payer OTHER, SELFPAY ==
[2024-06-15 12:13] LABS: Absolute Lymphocyte Count 2.17 X10^3/uL (0.83-4.51); Absolute Neutrophil Count 3.7 X10^3/uL (2.0-7.7); Basophil# 0.02 X10^3/uL; Basophil% 0.3 % (0-1); Eosinophil# 0.26 X10^3/uL; Eosinophils% 3.9 % (0-5); Hematocrit 44.4 % (37-47); Hemoglobin 15.4 g/dL (12.0-15.0); Lymphocyte # 2.17 X10^3/ul (0.83-4.51); Lymphocyte % 32.7 % (19-41); Mean Corp Hgb Conc 34.7 g/dL (32-36); Mean Corpuscular Hgb 31.4 pg (27.0-32.0); Mean Corpuscular Volume 90.6 fL (81-99); Mean Platelet Vol. 9.6 fl (6.2-12.0); Monocyte# 0.43 X10^3/uL; Monocyte% 6.5 % (0-10); NRBC Flagged by Analyzer 0 % (0-5); Neutrophil # 3.73 X10^3/uL (2.7-7.7); Neutrophil % 56.3 % (47-70); Platelet Count 203 K/mm3 (150-450); RBC Distribution Width CV 12.3 % (11.6-14.6); RBC Distribution Width SD 40.7 fl (35.1-43.9); White Blood Count 6.6 K/mm3 (4.4-11.0)
[2024-06-17 06:07] LABS: Anti-Cardiolipin Ab, IgG, Qn < 9 GPL U/mL (0-14); Anti-Cardiolipin Ab, IgM, Qn < 9 MPL U/mL (0-12); Beta-2-Glycoprotein I IgA <9 (0-25); Beta-2-Glycoprotein I IgG <9 (0-20); Beta-2-Glycoprotein I IgM <9 (0-32); Dilute Prothrombin Time (dPT) 38.9 sec (0.0-47.6); Dilute Russell Viper Venom 45.5 sec (0.0-47.0); Hexagonal Phase Phospholipid 2 6 sec (0-11); Interpretation Comment: (.); PTT-LA 77.1 sec (0.0-43.5); PTT-LA Mix 61.9 sec (0.0-40.5); Thrombin Time 21.6 sec (0.0-23.0)
== END | disposition home or self-care (01) ==
PROVIDERS: PCP Pediatrics; Referring Provider Obstetrics & Gynecology; Visit Provider Obstetrics & Gynecology
DX: O99.119 Other diseases of the blood and blood-forming organs and certain disorders involving the immune mechanism complicating pregnancy, unspecified trimester (principal); D68.61 Antiphospholipid syndrome; O26.20 Pregnancy care for patient with recurrent pregnancy loss, unspecified trimester; Z3A.00 Weeks of gestation of pregnancy not specified; Z82.79 Family history of other congenital malformations, deformations and chromosomal abnormalities
CPT/HCPCS: 36415; 85025; 86146; 86147; 86850; 86900; 86901

== ENCOUNTER 2024-06-30 09:58 | Day surgery (SDC) | payer OTHER, SELFPAY ==
[2024-06-30] VITALS (9 sets, daily range): BP systolic 110–126; BP diastolic 72–88; PULSE 53–75; RESP 16–18; TEMP 36.1–36.4; O2SAT 98–100; BMI 30.6
[2024-06-30] MEDS: Lactated Ringers 1,000 ML 15 ML IV (10:23)
[2024-06-30 10:24] LABS: Internal QC Validated? YES +Cl - CLEAR BKGD; Pregnancy, Urine Negative Negative
--- NOTE | 2024-06-30 10:35 | PCM.HP.BLA ---
History and Physical Date of Admission: 06/30/24 Intake Vital Signs 05/07/2508:58 06/15/2510:05 Height 5 ft 6 in 5 ft 6 in Weight: 191 lb 2 oz BMI 30.8 BP 112/78 Intake Visit Reasons: visit (obstetrics) Director Decision Support Required: No Is patient in pain?: No Allergies No Known Allergies Allergy (Verified 06/15/24 11:07) Medications ?Medication ?Instructions ?Recorded ?Confirmed ?Type docosahexaenoic acid 200 mg 200 mg PO DAILY 11/05/23 06/15/24 History capsule (Algal Bowman-3 DHA) multivit-min no.71-iron fum 28 1 cap PO DAILY 11/05/23 06/15/24 History mg-folate no.1 1 mg-dha 300 mg capsule (PNV-[place]) : [facility] History Vaginal delivery 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, antepartum Stillborn, normal Oligohydramnios Blood clotting disorder Wears glasses Migraine headache Cervical incompetence Vaginal delivery History of pre-term labor Cervical insufficiency in , antepartum demise Surgical History History of gynecologic surgery H/O dilation and curettage Family History Grandmother DiabetesAunt Cervical cancer, Onset Age: 37 MaternalSister Heart murmurBrother Heart murmur Social History adopted: No household members: spouse and children housing: house number of children: 2 current occupational status: unemployed current occupation: [employer] current occupational exposures/hazards: No pets and animals: No history of recent travel: No sexually active: Yes Smoking Status: Never smoker alcohol intake: never substance use type: does not use well-balanced diet: about half the time caffeine: Yes Type: coffee Number of servings: 1 eating out: rarely or never during the past year weight has: increased > 10 lbs what type of physical activity do you participate in: none daniel/anglican: [facility] seatbelt use: sometimes do you feel safe at home: Yes 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 Date Name GA/Weeks Outcome Route Bth Weight Infant Gen Labor Lgth Anesthesia Del Locatn Provider FOB 10/17/18 male 15 07/15/19 male 22 live - 12/12/20 Steph 39 live - full term 6lbs 4oz Female [facility] Dr. Funk 08/14/22 Calderon 38 live - full term Male [facility] Chintan Butts 03/06/23 10 spontaneous 05/07/24 Tuan 36 live - 6lb 6oz Male epidural [facility] Seraric Bentley Delivery Date: 10/17/18 Last Updated by: Steph Vargas D&C Delivery Date: 07/15/19 Last Updated by: Amanda Funk MD cervical insufficiency Delivery Date: 12/12/20 Last Updated by: Steph Vargas Cervical insuff-cerclage, [place] Delivery Date: 08/14/22 Last Updated by: Peri Beltran IOL SROM intact, cerclage Delivery Date: 03/06/23 Last Updated by: Peri Belrtan D&C Delivery Date: 05/07/24 Last Updated by: Peri Beltran see problem list for complications, oligo Depression Screen PHQ-2/9 PHQ-2 Over the last 2 weeks, how often have you been bothered by any of the following problems? 1. Little interest or pleasure in doing things: not at all 2. Feeling down, depressed, or hopeless: not at all Total score: 0 Post HPI Routine Follow-Up: Details: BRIANA QUIROZ is a 29 year old who presents for her post visit. Feeding: Breast Menses resumed: Yes [place] since delivery: No Emotional Support: Yes Last Pap:: 03/06/23 Control Method: BS pre op ROS Const Reports system reviewed and no additional complaints, except as documented GI Reports system reviewed and no additional complaints, except as documented, Denies bloating, Denies constipation, Denies nausea and Denies vomiting Reports system reviewed and no additional complaints, except as documented, Denies abnormal vaginal bleeding, Denies pelvic pain, Denies sexual dysfunction, Denies urinary incontinence, Denies urinary hesitancy, Denies urinary urgency and Denies vaginal discharge Skin/Breast Reports system reviewed and no additional complaints, except as documented and Reports as per HPI Psych Reports as per HPI Exam Const General: cooperative, healthy appearing, comfortable and no acute distress [facility] Head: normal to inspection Neck Neck: normal visual inspection and no lymphadenopathy Thyroid: thyroid normal Chest Breast inspection: normal inspection of the breasts and normal inspection of the axillae Breast palpation: normal palpation of the breasts and normal palpation of the axillae Resp Effort & Inspection: normal respiratory effort GI Inspection: normal to inspection Palpation: soft, no hepatosplenomegaly and nontender General: bladder normal to palpation External Female Exam: normal external appearance and normal appearance of the urethra Urethra: normal appearance of the urethra Speculum Exam - Vagina: normal appearance of the vagina and normal vaginal discharge Speculum Exam - Cervix: normal appearance of the cervix Bimanual Exam- Vagina & Uterus: normal bimanual exam, uterine size normal, bladder normal to palpation, uterine shape normal and non-tender Bimanual Exam- Adnexa, other: normal adnexae and normal Pelvic Support: normal Skin General: no rashes or lesions noted Coding Level of Care Code No Charge Diagnoses Routine Follow-Up Z39.2 Sterilization Z30.2 Assessment and Plan Assessment and Plan (1) Routine Follow-Up: (2) Sterilization: Status: Acute Comment: plan laparoscopic BS Orders: Orders Type & Screen 06/15/24 Beta-2 Glycoprot IgG, A, M 06/15/24 N96 - Recurrent loss Lupus Anticoagulant Comp 06/15/24 N96 - Recurrent loss Anticardiolipin IgG, IgM 06/15/24 N96 - Recurrent loss CBC W/Diff, Automated 06/15/24 D68.61 - Antiphospholipid syndrome, O99.119 - Other diseases of the blood and blood-forming organs and certain disorders involving the immune mechanism complicating , unspecified trimester, Z82.79 - Family history of other congenital malformations, deformations and chromosomal abnormalities Plan After discussing the patient's diagnosis and treatment plan options, patient wishes to proceed with surgical management. I have discussed with the patient the risks, benefits, and alternatives of the procedure which include but are not limited to risks of anesthesia, bleeding, infection, possible damage to bowel, bladder, or surrounding vasculature which could lead to additional surgery to evaluate any complications. Patient agrees to procedure and wishes to proceed. ACOG/uptodate references given for additional information regarding procedure. UPDATE- I have seen the patient and performed any clinically relevant updates to the history and physical exam. Amanda Funk MD
--- NOTE | 2024-06-30 11:02 | OP.PCM_ITS ---
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: [employer] Tasks completed by railways assistant: Opening & closing, Altering tissue and Insert Trochanter Additional office assistant receptionist?: No Type of Anesthesia: General RN Documented Start/Stop Times: Operation Date: 06/30/24 11:35 Case Time Into Pre-Op 06/30/24 10:02 Out of Pre-Op 06/30/24 12:21 Anesthesia Start 06/30/24 12:24 Into Room 06/30/24 12:24 Procedure Start 06/30/24 12:50 Procedure End 06/30/24 13:07 Anesthesia End 06/30/24 13:18 Out of Room 06/30/24 13:18 Into Recovery 06/30/24 13:21 Out of Recovery 06/30/24 14:01 Into Phase II Recovery 06/30/24 14:02 Procedure Start Time: 12:50 Procedure Stop Time: 13:07 Select all DRAINS/GRAFTS/IMPLANTS that apply: None Estimated Blood Loss: 25 Specimen collected: Yes Description of specimen(s) removed: tubes Description of surgery: Patient was taken in the operating room and was placed under general anesthesia was prepped and draped in normal sterile fashion in the dorsal lithotomy position. Bladder was drained of clear urine and SCDs were on preoperatively. Uterus was sounded and a uterine manipulator was placed after dilating. Attention was then paid to the abdominal portion of the procedure and the umbilicus was elevated with towel clamps and injected with Marcaine and after a 5 mm incision was made and the Veress needle was entered into the abdomen confirmed to be intra-abdominal with a low opening pressure of less than 5 mmHg. Abdomen was insufflated with CO2 gas and a 5 mm optical trocar was placed under direct visualization. suprapubic 5 mm port was placed under direct visualization. Uterus, tubes, and ovaries were well visualized and upon inspection of the pelvis they were noted to be within normal limits. Bilateral tubes were elevated and transected across the mesosalpinx with the LigaSure device bilaterally without complication both tubes were removed. They were extracted through the suprapubic port without complication. Excellent hemostasis was noted in the pelvis. Liver and upper abdomen were visualized notably within normal limits and no other gross abnormalities were seen in the abdomen. All instruments removed from the abdomen after gas was desufflated. Port sites were closed with 3-0 Monocryl Steri's and op sites were applied. All instruments removed from the vagina and patient was awoken and taken recovery in stable condition. Surgical Findings: nl uterus tubes ovaries Complications Complications: No
--- NOTE | 2024-06-30 11:03 | PRE.ANES_ITS ---
ASA Classification* ASA Classification ASA Classification: 2 Assessment & Plan Anesthesia* Anesthesia Assessment Anesthesia Assessment: Discussed sedation and/or anesthesia options, risks, benefits, and alternatives with patient/parents/legal guardian/POA. Questions invited. The patient/parents/legal guardian/POA seems to understand and agrees to proceed with anesthesia plan. Reviewed the physical assessment, medical history, allergy history and patient home medications list prior to surgery/procedure/anesthetic and documented any changes. Performed airway and anesthesia risk assessments. Anesthesia Type Anesthesia Type: General History Source History Obtained from:: Patient and Chart Anesthesia Focused Assessment* Temperature: 97.5 F Pulse Rate: 67 Blood Pressure: 117/72 Respiratory Rate: 18 Pulse Ox: 98 Oxygen Delivery Method: Room Air Airway Assessment Mouth opens: >3 cm Mallampati Score: III Teeth Condition: Partial (Patient has a upper partial. It will come out. Rest of the teeth are tight.) Neck Range of motion (ROM): Full ROM Focused Labs Anesthesia Preop lab: CBC WBC 6.6 K/mm3 (4.4-11.0) 06/15/24 11:37 06/15/24 RBC 4.90 M/mm3 (4.2-5.4) 06/15/24 11:37 06/15/24 Hgb 15.4 g/dL (12.0-15.0) H 06/15/24 11:37 5 Hct 44.4 % (37-47) 06/15/24 11:37 06/15/24 Plt Count 203 K/mm3 (150-450) 06/15/24 11:37 06/15/24 CHEMISTRY TSH 0.89 uIU/mL (0.358-3.74) 10/17/18 19:50 COAG HCG, Quant 63074 mIU/mL (1-3) H 07/12/20 18:25 07/12/20 Urine Test Negative Negative 06/30/24 10:05 06/30/24 Pre-Assessment Diagnosis/Proposed Procedure Planned Operative Procedure(s): (B) Laparoscopic, Salpingectomy Anesthesia History Anesthesia History - community health advisor: Anesthesia History - community health advisor Hx Hospitalization No 06/17/24 13:54 Any Problems With Anesthesia No 06/17/24 13:54 Cholinesterase deficiency No 06/17/24 13:54 You/Your Family Experience No 06/17/24 13:54 fever (hyperthermia) with Relationship Recent Exposure to Contagious No 03/08/23 10:29 Disease Does patient have nerve No 06/17/24 13:54 stimulator Patient instructed to have device shut off --Does patient have Pacemaker No 06/30/24 10:12 or ICD? When Was Last Pacemaker Check QUESTION #4 FULL TEXT: You/Your Family Experience fever (hyperthermia) with Anesthesia Last Oral Intake Last Oral intake: Last Oral Intake NPO since 07:00 06/30/24 10:12 Meds taken in AM with sips of No 06/30/24 10:12 water? Meds patient instructed to take am of surgery Any additional information?: Yes NPO since: 07:00 (Patient had a cup of black coffee at 7 AM.) PONV PONV - community health advisor: PONV - community health advisor Female Yes 06/17/24 13:54 HX of Motion Sickness No 06/17/24 13:54 HX of N/V After Surgery No 06/17/24 13:54 Non-Smoker Yes 06/17/24 13:54 Duration of Surgery greater No 06/17/24 13:54 than 60 minutes Number of Risk Factors 2 06/17/24 13:54 PONV Score Moderate Risk 06/17/24 13:54 Height & Weight Height & Weight: Anesthesia: Height & Weight Height 5 ft 6 in 06/30/24 10:12 Weight: 86 kg 06/30/24 10:12 Body Mass Index (BMI) 30.6 06/30/24 10:12 Respiratory Assessment Respiratory Assessment - community health advisor: Respiratory Tract Infection Hx - community health advisor Hx Respiratory Tract Infection No 06/17/24 13:54 STOP Sleep Apnea STOP Sleep Apnea - community health advisor: STOP Sleep Apnea - community health advisor Hx Hypertension No 06/17/24 13:54 Hx Sleep Apnea No 06/17/24 13:54 CPAP BIPAP Do you snore loudly (louder No 06/17/24 13:54 than talking or can be heard Do you often feel tired/ No 06/17/24 13:54 fatigued/ sleepy during daytime? Has anyone observed you stop No 06/17/24 13:54 breathing during sleep? STOP Results Negative 06/17/24 13:54 QUESTION #5 FULL TEXT : Do you snore loudly (louder than talking or can be heard through closed doors)? Tobacco Use History Tobacco Use History - community health advisor: Tobacco Use History - community health advisor Tobacco Use Non-smoker 07/02/22 11:17 Smoking Status Never smoker 06/17/24 13:54 Hx Tobacco Use No 06/17/24 13:54 Years Smoking Packs Smoked per Day Smoking Cessation Date was within the last 15 years Hx Smoking Cessation Date Hx Smoking Cessation Counseling Hematologic Medial History Hematologic Hx - community health advisor: Hematologic Medical Hx - video control engineer Hx of Blood Transfusion No 06/17/24 13:54 Hx of Transfusion in last 3 No 06/17/24 13:54 Months Date of Last Transfusion (if within last 3 months) Ever experience any problems No 06/17/24 13:54 with transfusion(s)? Specify any problems Hx of Preganancy in last 3 Yes 06/17/24 13:54 Months Nurse Filling Out Transfusion NBUCHER 06/17/24 13:54 & Questions: Date: 06/17/24 06/17/24 13:54 Time: 13:55 06/17/24 13:54 Patient unable to answer at this time (ie. 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, antepartum Stillborn, normal Oligohydramnios Blood clotting disorder Wears glasses Migraine headache Cervical incompetence Vaginal delivery History of pre-term labor Cervical insufficiency in , antepartum demise Home Medications ?Medication ?Instructions ?Recorded ?Last Taken ?Type multivit-min no.71-iron fum 28 1 cap PO DAILY pregnanc y 09/10/24 03/12/25 09:00 History mg-folate no.1 1 mg-dha 300 mg capsule (PNV-[place]) digestive enzymes (Digestive 1 cap PO DAILY 06/17/24 U nknown History Wellness capsule) naproxen 500 mg tablet 500 mg PO BID PRN PRN Pain # 30 tabs 06/30/24 Unknown Rx oxycodone-acetaminophen 5 mg-325 1 tab PO Q4H PRN pain 7 days #20 06/30/24 Unknown Rx mg tablet (Percocet) tabs Allergy/AdvReac Type Severity Reaction Status Date / Time No Known Allergies Allergy Verified 06/30/24 10:12 Family History Grandmother Diabetes Aunt Cervical cancer, Onset Age: 37 Maternal Sister Heart murmur Brother Heart murmur Surgical History History of gynecologic surgery H/O dilation and curettage Social History adopted: No household members: spouse and children housing: house number of children: 2 current occupational status: unemployed current occupation: [employer] current occupational exposures/hazards: No pets and animals: No history of recent travel: No sexually active: Yes Smoking Status: Never smoker alcohol intake: never substance use type: does not use well-balanced diet: about half the time caffeine: Yes Type: coffee Number of servings: 1 eating out: rarely or never during the past year weight has: increased > 10 lbs what type of physical activity do you participate in: none daniel/alevism: [facility] seatbelt use: sometimes do you feel safe at home: Yes 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
--- NOTE | 2024-06-30 11:08 | PCM.DC ---
Discharge Instructions Diet Discharge Diet: No restrictions DC O2, CPAP, BIPAP needs Home O2 Discharge instructions: No Dressing / Incision Discharge Activity: Return to Normal Activity, May Not Drive ( while taking narcotic pain meds, when pain free), May Shower and May Take a Tub Bath (in 7 days) May resume sexual activity in: 1 week Weight Bearing Status: Full weight bearing Dressing / Incision Call your doctor if your incision/area has: Continuous Slow Oozing, Sudden Increased Bleeding, Increased Pain/ Swelling, Increased Redness and Foul Smelling Discharge Call your doctor if you observe: Fever of 101 or Higher, Using more than 1 pad per hour, Shortness of breath, Chest pain and Uncontrolled pain Suture Line Care: Avoid Pulling/Pushing and Avoid Pinching/Bending Remove Dressing in: 1 week (if present) Cleanse incision/area with: Soap & Water and Keep Dressing Clean & Dry Follow Up Care When: Call to make an appointment with your doctor for a fu/incision check in 1-2 weeks. Test Results: Test results from this visit will be discussed in further detail at your follow-up appointment, if applicable. Discharge Plan Admission Attending Provider: Amanda Funk Primary Care Provider: Dea Regalado APPLIANCE LINE ASSEMBLER Instructions Print Language: Turkish Discharge Orders/Prescriptions Prescriptions: New oxycodone-acetaminophen [Percocet] 5-325 mg tablet 1 tab PO Q4H PRN (Reason: pain) 7 Days Qty: 20 0RF naproxen 500 mg tablet 500 mg PO BID PRN PRN (Reason: Pain) Qty: 30 1RF No Action PNV-[place] 28-1-300 mg capsule 1 cap PO DAILY Digestive Wellness Capsule 1 cap PO DAILY Rx Instructions: administer with food; swallow whole; do not crush/chew/dissolve/break/cut Referrals / Follow Up: Dea Carl DO [Non-Staff] - Disposition Disposition (needs filled in before D/C Order can be placed): Home, Self Care
--- NOTE | 2024-06-30 11:35 | FALS_PTH ---
PATIENT: BRIANA QUIROZ LOC: [facility] [place] U#:[id number] AGE/SX: 29/F ROOM: RE06/30/[address]: Dr. Amanda Funk MD : 1995 BED: DIS: 06/30/2024 SPEC #: [id number] RECD: 07/01/24 09:36 STATUS: JANETTE REElda #: [id number] COLT: 06/30/24 11:[address]: Amanda Funk DEPT: SURGICAL PATHOLOGY RECD BY: Matteo Campbell ENTERED: 07/01/24 10:42 SP TYPE: FALL TUBES OTHR DR: Dea Regalado, PAINTER AIRBRUSH-C Tissues: A - Fallopian tube Procedures: Surgery Specimen Level II HEADER OPERATION: Laparoscopic salpingectomy PRE-OP DIAGNOSIS: Sterelization TISSUE SUBMITTED: A- Bilateral fallopian tubes MICROSCOPIC DIAGNOSIS A. Bilateral fallopian tubes, salpingectomy: * Benign fallopian tubes with complete cross sections obtained MICROSCOPIC DESCRIPTION Slides are reviewed. GROSS DESCRIPTION A. Received in formalin in a container labeled with the patient's name, date of , and bilateral fallopian tubes are 2 unoriented fallopian tube segments measuring 6.0 x 0.8 cm and 5.0 x 0.8 cm. Each display purple-xiong, smooth, and glistening serosa with feathery fimbriated ends. Sectioning of each reveals a pinpoint lumen. [place] sections:A1. Longer fallopian tubeA2. [place] fallopian tube [facility] 07-01-2024 CPT:40642h1
[2024-06-30] MEDS: Bupivacaine 0.25% 30 ML Vial (13:00)
--- NOTE | 2024-06-30 13:26 | PCM.POST.ANE ---
Anesthesia: Postop Eval I Current Vital Signs Temperature: 97 F Pulse Rate: 75 Blood Pressure: 117/72 Respiratory Rate: 18 Pulse Ox: 98 Oxygen Delivery Method: Room Air Assessment Airway patent: Yes Spontaneous unlabored respirations: Yes Mental status: Awake nausea: No Vomiting: No Anesthesia Complication: No Fluid Hydration Crystalloid volume administer (ml): 900 Total IV fluid infused: 900 Progress Note Anesthesia document: Postop Eval 1 completed: Yes
--- NOTE | 2024-06-30 19:10 | POSTOPAN2_ITS ---
Anesthesia Postop Eval I Sum Postop Eval Completion status Anesthesia document: Postop Eval 1 completed: Yes Anesthesia Postop Eval I Summary Anesthesia Postop Eval I Summary: Anesthesia Postop Eval I: Assessment Summary Airway patent Yes 06/30/24 13:27 VIDEO [email or web address] Spontaneous unlabored Yes 06/30/24 13:27 VIDEO [email or web address] respirations Mental status Awake 06/30/24 13:27 VIDEO [email or web address] nausea No 06/30/24 13:27 VIDEO [email or web address] Vomiting No 06/30/24 13:27 VIDEO [email or web address] Anesthesia Postop Eval I: Fluid Summary Crystalloid volume administer 900 06/30/24 13:27 VIDEO [email or web address] (ml) Colloids volume administered ( ml) Blood Product volume administered (ml) Total IV fluid infused 900 06/30/24 13:27 VIDEO [email or web address] Anesthesia Postop Eval I: Summary Notes Anesthesia Complication No 06/30/24 13:27 VIDEO [email or web address] Anesthesia Complication Comment: Post-operative progress note Anesthesia: Postop Eval II Evaluation Mental status: Awake and Calm Pain Level: 2 nausea: No Vomiting: No Complications Anesthesia Complication: No
--- NOTE | 2024-06-30 19:10 | PCM.POSTANE2 ---
Anesthesia Postop Eval I Sum Postop Eval Completion status Anesthesia document: Postop Eval 1 completed: Yes Anesthesia Postop Eval I Summary Anesthesia Postop Eval I Summary: Anesthesia Postop Eval I: Assessment Summary Airway patent Yes 06/30/24 13:27 [email or web address] Spontaneous unlabored Yes 06/30/24 13:27 [email or web address] respirations Mental status Awake 06/30/24 13:27 [email or web address] nausea No 06/30/24 13:27 [email or web address] Vomiting No 06/30/24 13:27 [email or web address] Anesthesia Postop Eval I: Fluid Summary Crystalloid volume administer 900 06/30/24 13:27 [email or web address] (ml) Colloids volume administered ( ml) Blood Product volume administered (ml) Total IV fluid infused 900 06/30/24 13:27 [email or web address] Anesthesia Postop Eval I: Summary Notes Anesthesia Complication No 06/30/24 13:27 [email or web address] Anesthesia Complication Comment: Post-operative progress note Anesthesia: Postop Eval II Evaluation Mental status: Awake and Calm Pain Level: 2 nausea: No Vomiting: No Complications Anesthesia Complication: No
== END 2024-06-30 14:51 | disposition home or self-care (01) ==
LOC: SDC 09:59 → AC 10:00
PROVIDERS: PCP Nurse Practitioner Family; Referring Provider Obstetrics & Gynecology; Visit Provider Obstetrics & Gynecology
PROC: (CPT 58661; principal; 2024-06-30 11:20)
DX: Z30.2 Encounter for sterilization (principal)
CPT/HCPCS: 58661; 00840; 81025; 86850; 86900; 86901; 88302; J2405